=== PATIENT | female | born 1945 | race Caucasian/White ===

== ENCOUNTER 2019-07-23 10:06 | Outpatient (CLI) | payer MEDICARE, SELFPAY ==
--- NOTE | 2019-07-28 13:13 | WPDHOLTEREM ---
Holter/Event Monitor Holter/Event Monitor Date of procedure: 07/23/19 Procedure Type: 48 hour holter monitor Indications: Palpitations Conclusion: 1. 48 hour holter monitor on 07/23/19. 2. Predominant rhythm is sinus rhythm. HR range 41- 118 bpm; average HR 62 bpm. 3. There are 694 premature supraventricular complexes and 27 supraventricular couplets and 3 supraventricular bigeminy. There are 9 episodes of atrial tachycardia, fastest at 150 bpm and longest lasting 8 beats. 4. There are 2 premature ventricular complexes. No ventricular tachycardia. 5. No sinoatrial or atrioventricular blocks. No significant pauses greater than 2 seconds. 6. Patient reports symptoms of chest discomfort and palpitations which demonstrate sinus rhythm HR range 52-83 bpm.
== END 2019-07-23 10:07 | disposition home or self-care (01) ==
PROVIDERS: PCP Family Medicine; Visit Provider Internal Medicine Cardiovascular Disease
DX: R00.2 Palpitations (principal)
CPT/HCPCS: 93225; 93226

== ENCOUNTER 2019-10-30 09:01 | Outpatient (RCR) | payer MEDICARE, SELFPAY ==
--- NOTE | 2019-10-30 09:50 | PTOPEVAL ---
Thank you for referring Klarissa Catalan to [facility]. Please review, sign, date and return this plan of care CASTILLO. I agree with and certify that the following plan of care is medically necessary. Referring Physician Date Admitting Provider: Attending Provider: Bin Ryder MD Referring Provider: *PT Outpatient Evaluation Start: 10/30/19 09:13 Freq: Status: Active Protocol: Document 10/30/19 09:14 NBA (Rec: 10/30/19 09:42 NBA [id number]) Therapy Assessment Status Assessment Status Assessment Status Evaluation Evaluation Information Problem Diagnosis right shoulder pain Onset 10/29/18 Additional Evaluation Detail Quick DASH=28 Subjective Information Pt. reports that she has had Query Text:As Reported By Patient/ on/off neck and shoulder pain Family for about 1 year. She states that she has had MRI which revealed scoliosis and stenosis. She reports that she recieved a cortisone injection into the shoulder on 10/22/19 which has eased her pain. She reports most pain with reaching overhead and rotating the shoulder increase her pain. She states that initially pain woke her at night, but has been sleeping better since getting her injection. She reports that her goal for therapy is to decrease her right shoulder pain. Prior Level of Function Activity Level (Last 3 Months) Occupation retired Hand Dominance Right Activity of Daily Living Ability Independent Indoor/Home Mobility Independent Community Mobility Independent Stairs Ability Independent Functional Cognition (Planning, Shopping Independent , Taking Medications) Cooking Yes Cleaning Yes Laundry Yes Shopping Yes Driving Yes Pain Assessment Pain Scale Pain Scale Used Numeric (1 - 10) Self Report Pain Assessment Right Shoulder(s) Reported Pain Level 0 Pain Description Aching Pain Frequency Intermittent Lowest Pain Intensity 0 Greatest Pain Intensity 8 Pain Level Goal 0
--- NOTE | 2019-11-06 09:00 | PCPTNOTE ---
patient called and cancelled appt for today. OWEN
--- NOTE | 2019-12-01 12:59 | PTOPEVAL ---
Thank you for referring Klarissa Catalan to [facility].? The patient is scheduled to be seen for therapy? ____x/week for ___ weeks. Please review, sign, date and return this plan of care CASTILLO. I agree with and certify that the following plan of care is medically necessary. Referring Physician Date Admitting Provider: Attending Provider: Bin Rydre MD Referring Provider: *PT Outpatient Evaluation Start: 10/30/19 09:13 Freq: Status: Active Protocol: Document 11/28/19 13:00 NBA (Rec: 12/01/19 12:55 NBA [id number]) Evaluation Information Problem Diagnosis right shoulder pain Onset 10/29/18 Subjective Information Pt. reports that she noted Query Text:As Reported By Patient/ signficant decraese in pain Family until earlier this week. She reports she reached for an object at home and felt a return of pain in the front of the arm. she reports that she is still improved in regards to strength and mobility, and pain is less intense. She reports that given her intial progress with therapy she would like to continue to attempt to improve strength and mobility and reduce pain at the shoulder. Pain Assessment Pain Scale Pain Scale Used Numeric (1 - 10) Self Report Pain Assessment Right Shoulder(s) Reported Pain Level 4 Pain Score Pain Score 4: Self Report Upper Extremity Range of Motion General Upper Extremity Range of Motion Gross Upper Extremity Range of Motion right shoulder flexion 142 Comments degrees right shoulder ER AROM 90 degrees right shoulder IR AROM 75 degrees Upper Extremity Muscle Strength Testing General Upper Extremity Strength Gross Upper Extremity Strength Comments right shoulder flexion 4/5 right shoulder abduction 4/5 right shoulder IR 5/5 right shoulder ER 3/5 Palpation Assessment Palpation Palpation TTP continues to be noted in the bicipetal groove of the right shoulder. PT Clinical Summary Clinical Summary Protocol: PTEVCODE PT Clinical Summary Pt. has demonstrated progress in regards to strength and
== END 2019-12-12 08:48 | disposition home or self-care (01) ==
LOC: CHSPT 09:01
PROVIDERS: Visit Provider Orthopaedic Surgery
DX: M25.511 Pain in right shoulder (principal)
CPT/HCPCS: 97014; 97110; 97140; 97161; G0283

== ENCOUNTER 2019-12-02 10:16 | Outpatient (CLI) | payer MEDICARE, SELFPAY ==
--- NOTE | 2019-12-05 13:17 | SLEEP_ITS ---
Home Sleep Test DATE OF STUDY: 12/02/2019 ORDERING PHYSICIAN: Dr. Edd Hardin. REASON FOR STUDY: Hypertension, nonrestorative sleep, and tachycardia. HISTORY: This patient is a 74-year-old female, 5 feet 3 inches tall, weighing 200 pounds with a body mass index of 35.4. She has a complex cardiac history including paroxysmal supraventricular tachycardia and paroxysmal atrial tachycardia. She has had ablation earlier this year. Following this, she has had ongoing episodes of atrial tachycardia. She has had multiple medication changes. She had an episode of her heart racing on October 13, 2017, and has had multiple investigations since then. She occasionally snores. Rarely loud enough for others to complain about it. She does not awaken from sleep short of breath or with heartburn or belching. She does have difficulty falling asleep and she wakes up during the night and early in the morning on occasion. This has been going on for longer than 2 years. She occasionally has trouble sleeping with a cold. She does not wake up gasping for breath at night or have breathing problems at night reported to her by others. She does not sweat excessively at night. She occasionally notices her heart pounding or beating irregularly at night. She rarely falls asleep during the day, never involuntarily, never while driving, never with physical effort. She does not have loss of muscle tone with strong emotion. She does not have daytime difficulties due to excessive sleepiness and does not feel paralyzed on waking or falling asleep. She rarely has vivid dreamlike scenes upon awakening or falling asleep. She is rarely afraid to go to sleep. She occasionally has nightmares, occasionally remembers her dreams, occasionally has racing thoughts, feelings of sadness, depression, anxiety, and occasionally has muscular tension. She rarely notices parts of her body jerking. She does not kick at night or have crawly achy feelings in her legs. She does not have leg pain at night. She rarely has morning jaw pain. She never grinds her teeth at night. She frequently is bothered by pain during the day. She occasionally is awakened by pain at night. She frequently wakes up feeling stiff in the morning with sore achy muscles and pain in the neck and spine. She is retired. She has feelings of panic, nightmares, bowel disturbances, palpitations, and stomach problems. Bedtime is 10:30 p.m., taking 30 minutes to fall asleep, typically waking 2-3 times at night, staying awake anywhere from 10 minutes to 2 hours. She will go to the bathroom at night, drink water and perhaps watch television. She wakes at 7:30 a.m. Weekend schedule is the same. She does not take naps. A short nap may be refreshing. Most of the time, she feels adequate in the morning. However, she feels better in the afternoon than in the morning. MEDICAL COMORBIDITIES: Hypertension, chronic upper back pain, neck pain, palpitations, paroxysmal supraventricular tachycardia, slow pathway with radiofrequency ablation in May 2019, history of sinus bradycardia, paroxysmal atrial tachycardia, cardiomegaly, hypersomnia. MEDICATIONS: 1. Losartan 50 mg b.i.d. 2. Alprazolam 3 mg tablets extended release p.r.n. 3. Aspirin 81 mg a day. 4. Calcium carbonate 600 mg p.o. daily. 5. Flecainide 50 mg b.i.d. 6. Multivitamin 1 daily. 7. Potassium chloride 10 mEq daily. 8. Pravastatin 20 mg a day. 9. Acetaminophen 650 mg p.r.n. pain. 10. Metoprolol tartrate 25 mg b.i.d. HABITS: Never smoked tobacco. No caffeine or alcohol. DESCRIPTION OF THE STUDY: On the Skillman Sleepiness Scale, her score is 3. This was conducted as an unattended type III portable home sleep test using 4-channel monitoring including respiratory effort channel, snor
== END 2019-12-02 10:17 | disposition home or self-care (01) ==
LOC: ANHCSM 10:16
PROVIDERS: Visit Provider Internal Medicine Cardiovascular Disease
DX: G47.33 Obstructive sleep apnea (adult) (pediatric) (principal)
CPT/HCPCS: 95806

== ENCOUNTER 2020-08-05 04:42 | Observation (INO) | payer MEDICARE, SELFPAY ==
[2020-08-05] VITALS (9 sets, daily range): BP systolic 112–184; BP diastolic 59–89; PULSE 46–64; RESP 12–20; TEMP 36.1–36.8; O2SAT 96–100; BMI 36.3
--- NOTE | 2020-08-05 | ECHO_ITS ---
Patient Info Name: Klarissa Catalan Age: 75 years : 1945 Gender: Female Ht: 63 in Wt: 205 lbs BSA: 2.08 m2 HR: 50 bpm BP: 152 / 71 mmHg Technical Quality: Fair Exam Date: 08/05/2020 11:14 AM Exam Location: [facility] Patient Status: Outpatient Admit Date: 08/05/2020 Staff Ordering Physician: Edd Hardin DO Pelletizer Operator: Argenis Chua RDCS Attending Provider: Edd Hardin DO Referring Physician: Wilfred QUIGLEY; Exam Type: CA echo dop color flow w con Study Info Indications R07.9 - Chest pain, unspecified Complete two-dimensional, color flow and Doppler transthoracic echocardiogram is performed with contrast to opacify the left ventricle and to improve the deliniation of the left ventricle endocardial borders. Contrast/Agitated Saline Contrast/Ag. Saline: Definity Amount: 3.00 ml Administered By: Sanjana King RN Existing IV Access: Yes IV Access Condition: patent with no signs of infiltration Summary 1. Left ventricular chamber dimension is normal. 2. Definity contrast administered improved wall motion interpretation. 3. Left ventricular systolic function is normal, estimated at 65-70%. 4. The left ventricular diastolic function is normal. 5. E/e' 9 is minimally elevated. 6. Left atrial chamber dimension is moderately enlarged. 7. There is trace aortic valve regurgitation. 8. There is mild tricuspid valve regurgitation. 9. No pulmonary hypertension, estimated pulmonary arterial systolic pressure is 29 mmHg. 10. There is trace pulmonic regurgitation. Left Ventricle E/e' 9 is minimally elevated. Definity contrast administered improved wall motion interpretation. Left ventricular chamber dimension is normal. Left ventricular systolic function is normal, estimated at 65-70%. The left ventricular diastolic function is normal. Right Ventricle Right ventricular chamber dimension is normal. Right ventricular systolic function is normal. Left Atria Left atrial chamber dimension is moderately enlarged. Right Atria Right atrial chamber dimension is normal. Aortic Valve The aortic valve is trileaflet. There is no aortic valve stenosis. There is trace aortic valve regurgitation. Pulmonic Valve There is trace pulmonic regurgitation. Mitral Valve There is no mitral valve stenosis. There is no mitral valve regurgitation. Tricuspid Valve There is mild tricuspid valve regurgitation. No pulmonary hypertension, estimated pulmonary arterial systolic pressure is 29 mmHg. Pericardium/Pleural There is no pericardial effusion. Inferior Vena Cava Normal inferior vena cava with >50% collapse upon inspiration consistent with normal right atrial pressure, 5 mmHg. Aorta The aortic root size at the sinus of Valsalva is normal. Left Ventricular Outflow Tract Name Value Normal LVOT 2D LVOT Diameter 1.89 cm LVOT Doppler LVOT Peak Gradient 4 mmHg LVOT Mean Gradient 2 mmHg LVOT VTI 25.53 cm LVOT VTI/AV VTI Ratio
--- NOTE | ~2020-08-05 | XR_ITS ---
XR chest 1V portable DATE: 08/05/2020 05:34 INDICATION: Midline chest pain TECHNIQUE: Portable AP chest on 08/05/2020 at 0538 hours COMPARISON: 11/02/2017 PA and lateral chest FINDINGS: Borderline heart size. Aortic calcification and mild unfolding. No hilar or mediastinal enl argement is evident. No pulmonary consolidation. No pleural effusion or pneumothorax. Osteopenia. Degenerative spurring and mild scoliosis of the thoracic spine. IMPRESSION: Borderline heart size Aortic atherosclerosis No pulmonary consolidation Reviewed, dictated and finalized at location A.
--- NOTE | ~2020-08-05 | CT_ITS ---
EXAMINATION: CTA chest PE protocol DATE: 08/05/2020 06:01 INDICATION: Chest pain, back pain, elevated d-dimer TECHNIQUE: Computed tomography angiography (CTA) of the chest was performed with 100 mL Omnipaque-350 intravenous contrast timed to evaluate the pulmonary arteries. Coronal maximum intensity projection 3D-reconstructions were created by the technologist. Automated exposure control and iterative reconst ruction technique were employed. Exam dose: 799.56 mGy-cm total exam DLP. COMPARISON: 08/05/2020 portable AP chest 12/04/2017 CT pulmonary scan FINDINGS: There is diagnostic contrast enhancement of the pulmonary arteries and no evidence of pulmo nary embolism. Thoracic aortic and abdominal aortic calcification. No aortic aneurysm or dissection is evident. No hilar or mediastinal mass lesion or lymphadenopathy. Cardiomegaly. No pericardial or pleural effusion. No pulmonary infiltrate or consolidation or pulmonary mass lesion. There is mild atelectasis in the l ower lung zones. Small sliding hiatal hernia. Status post cholecystectomy. Normal morphology of the adrenal glands. Diffuse idiopathic skeletal hyperostosis of the thoracic spine. No suspicious osteolytic or osteoblas tic lesions are noted. IMPRESSION: No evidence of pulmonary embolism Cardiomegaly Small sliding hiatal hernia Status post cholecystectomy Reviewed, dictated and finalized at Location A. Reviewed, dictated and finalized at location A.
--- NOTE | 2020-08-05 05:00 | ECG_ITS ---
Measurements Intervals [place] Rate: 72 P: 79 [place]: 207 QRS: 12 QRSD: 93 T: 31 QT: 409 QTc: 450 Interpretive Statements SINUS RHYTHM ATRIAL PREMATURE COMPLEX DELAYED PRECORDIAL R/S TRANSITION LOW QRS VOLTAGE IN PRECORDIAL LEADS BORDERLINE ST-T WAVE ABNORMALITY- ANTERIOR LEADS BASELINE ARTIFACT- I, II, III, AVR, AVL, AVF, V1-V6 BORDERLINE ECG Electronically Signed On 08-05-2020 7:25:26 CDT by Edd Hardin D.O.
--- NOTE | 2020-08-05 05:03 | ED.CHESTPAIN ---
HPI - Chest Pain General Chief Complaint: Chest Pain Stated Complaint: chest pain and back, heart palpitations, weakness Time Seen by Provider: 08/05/20 04:49 Source: patient Mode of arrival: ambulatory Limitations: no limitations History of Present Illness HPI narrative: This is a 75 year old female with history of paroxsymal SVT, hypertension, and anxiety who presents from home for evaluation of palpitations, chest pain and back pain. Patient developed palpitations, chest pain and back pain intermittently on Sunday. She reports feeling frequent palpitations and fluttering in her chest. This has been associated with midsternal chest pressure that radiates to her back. She reports this pain with palpitations last for hours. This episode woke her up at 2 am this morning. Her astronomy teacher, Dr. Hardin, started her on metoprolol on Sunday. She has continued to have worsening symptoms. She states she does not feel well and she feels weak. She has nausea but denies vomiting, sob or fever. MD complaint: chest pain Timing of current episode: episodic and still present Pain radiation: back Related Data Home Medications Medication Instructions Recorded Confirmed aspirin 81 mg tablet,delayed 81 mg PO DAILY 07/29/19 08/05/20 release calcium carbonate 600 mg calcium 600 mg PO DAILY 07/29/19 08/05/20 (1,500 mg) tablet multivitamin 1 cap PO DAILY 07/29/19 08/05/20 potassium chloride 10 mEq 10 meq PO DAILY 07/29/19 08/05/20 capsule,extended release acetaminophen 650 mg 650 mg PO Q12H 08/06/19 08/05/20 tablet,extended release flecainide 50 mg PO DAILY 08/05/20 08/05/20 flecainide 100 mg PO HS 08/05/20 08/05/20 losartan 100 mg PO DAILY 08/05/20 08/05/20 pravastatin 20 mg PO HS 08/05/20 08/05/20 Allergies Allergy/AdvReac Type Severity Reaction Status Date / Time escitalopram [Lexapro] Allergy Intermediate Diarrhea Verified 08/05/20 09:06 Penicillins Allergy Intermediate Rash Verified 08/05/20 09:06 atorvastatin AdvReac Intermediate Muscle Pain Verified 08/05/20 09:06 metoprolol AdvReac Intermediate heart Verified 08/05/20 09:06 palpitations Review of Systems Review of Systems: All systems reviewed & are unremarkable except as noted in HPI and below Constitutional: Constitutional: Denies chills, Reports fatigue and Denies fever(s) Cardiovascular: Cardiovascular: Reports chest pain Comments: palpitations Respiratory: Respiratory: Reports cough and Denies dyspnea Gastrointestinal: Gastrointestinal: Denies abdominal pain, Denies diarrhea, Reports nausea and Denies vomiting Musculoskeletal: Musculoskeletal: Reports back pain [facility] Past Medical History Medical History (Updated 08/05/20 @ 06:39 by Miranda Mock MD) Dyslipidemia KELLI (generalized anxiety disorder) Hypersomnia Hypertension Overweight 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
[2020-08-05] MEDS: NITROGLYCERIN OINTMENT 1 INCH DOSE TRANSDERM (05:07)
[2020-08-05] MEDS: ONDANSETRON INJ 4 MG/2 ML VIAL IV PUSH (05:09)
[2020-08-05] MEDS: ASPIRIN 81 MG CHEWABLE TABLET 324 MG PO (05:09)
[2020-08-05 05:16] LABS: Basophils Absolute Auto 0.1 K/mm3 (0.0-0.1); Basophils Percent Auto 1.1 % (0.2-1.2); Eosinophils Absolute Auto 0.1 K/mm3 (0-0.3); Eosinophils Percent Auto 2.2 % (0-4.4); Hematocrit 44.2 % (37.0-47.0); Hemoglobin 14.6 g/dL (12.0-15.0); Immature Granulocyte Absolute 0.02 K/mm3 (0.00-0.031); Immature Granulocyte Percent A 0.4 % (0-0.5); Lymphocytes Absolute Auto 2.11 K/mm3 (0.9-3.2); Lymphocytes Percent Auto 38.4 % (18.3-44.2); Mean Corpuscular Hemoglobin 31.9 pg (26-34); Mean Corpuscular Volume 96.7 fl (80-100); Monocytes Absolute Auto 0.5 K/mm3 (0.1-0.6); Monocytes Percent Auto 8.4 % (2.6-8.5); Neutrophils Absolute Auto 2.7 K/mm3 (1.3-6.7); Neutrophils Percent Auto 49.5 % (45.5-73.1); Platelet Count Result 219 k/mm3 (150-375); Red Blood Count 4.57 M/mm3 (4.2-5.4); White Blood Count 5.5 K/mm3 (4.5-10.0)
[2020-08-05 05:24] LABS: Anion Gap 4 mmol/L (8-16); Blood Urea Nitrogen 16 mg/dL (7-17); Carbon Dioxide 29 mmol/L (22-30); Chloride 103 mmol/L (98-107); Estimated CRCL calculation 59 ml/min; Estimated Glomerular Filt Rate > 60; Glucose 95 mg/dL (65-105); Sodium 136 mmol/L (137-145)
[2020-08-05 05:27] LABS: INR 0.9; Prothrombin Time 12.3 Seconds (11.1-14.7)
[2020-08-05 05:28] LABS: Partial Thromboplastin Time 28.2 SECONDS (22.3-36.8)
[2020-08-05 05:30] LABS: D Dimer 0.83 ug/mL (<0.48)
[2020-08-05 05:36] LABS: Troponin I 0.028 ng/mL (0.000-0.034)
--- NOTE | 2020-08-05 07:17 | PC.NURSE ---
Resting on cart HOB elevated, non-labored respirations, reports CP 3/10 s/p nitro paste. States I have been feeling more weak lately and not been sleeping well d/t the pain . Updated on POC
--- NOTE | 2020-08-05 07:40 | ADMGEN ---
This patient, Klarissa Catalan, was admitted VIA WC to [facility]. , ED, AT SIDE. Patient/family oriented to hospital policies and general routines including ID bracelet, bed and alarms, visiting hours, pain management, procedures, bathroom and other care routines, personal items, smoking policy, room service/diet, and visiting hours. Information on how to activate the Rapid Response Team has been discussed. Patient/Family are encouraged to report perceived risks to care and to ask questions if they do not understand what they are told or what they should do.
--- NOTE | 2020-08-05 08:00 | ECG_ITS ---
Measurements Intervals [place] Rate: 47 P: 79 SD: 196 QRS: 27 QRSD: 84 T: 43 QT: 480 QTc: 425 Interpretive Statements SINUS BRADYCARDIA LOW QRS VOLTAGE IN PRECORDIAL LEADS ABNORMAL ECG Electronically Signed On 08-05-2020 11:51:29 CDT by Edd Hardin D.O.
--- NOTE | 2020-08-05 08:55 | PC.NURSE ---
DR. OTTO HERE TO SEE PT AT BEDSIDE.
[2020-08-05 09:49] LABS: Troponin I < 0.012 ng/mL (0.000-0.034)
--- NOTE | 2020-08-05 09:59 | PM.IMHP ---
H&P: HPI History of Present Illness Date/Time: 08/05/20 09:59 Reason for admit: Chest pain. 74 yr old woman who is my regular cardiology patient presents to ER last night for chest pain. She has a history of PSVT/PAT (was on Sotalol but due to frequent breakthroughs she was changed to Flecainide in [place]), hypertension, dyslipidemia, ERICK on APAP. States last night chest pressure radiating to her back woke her up so she came to ER for evaluation. She also states she feels palpitations when her HR goes above 50 bpm but in ED on monitor she did not have any ectopies during that time. She used to have heartburn but had her Omemprazole discontinued. She can walk without any chest pain. She is limited by chronic upper back pain and neck pain and was supposed to see a specialist other than pain management for it last year but the pandemic prevented that from happening. Reports she has palpitations off and on with extra beats only. Denies orthopnea, PND, edema, dizziness. Reports feeling tired during the day and does not sleep well. 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 07/23/19 Holter: Sinus rhythm, HR range 41-118 bpm; average 62 bpm; 9 episodes of atrial tachycardia, fastest at 150 bpm and longest 8 beats; 2 PVC's. 06/06/19 EP lab at [facility] in [place]: Slow pathway PSVT RF ablation. EVR (30 day event monitor: Sinus rhythm, HR range 37-148 bpm; average 59 bpm; 2% PAC's with 3 SVT, fastest at 148 bpm and longest lasting 12 beats; 1% PVC's, 1 VT at 179 bpm lasting 4 beats.) - 08/26/2018 EKG (Sinus rhythm at 54 bpm, PAC, QTc 481 ms.) - 12/28/2017 EKG (Sinus bradycardia at 46 bpm, QTc 451 ms.) - 12/13/2017 EKG (Sotalol loading: Sinus rhythm, borderline T wave in anterior leads, low voltage.) - 12/03/2017 EKG (Sinus bradycardia, HR 52 bpm.) - 11/30/2017 Holter (Sinus rhythm, HR range 42-115 bpm. 7,168 PAC's and several runs of atrial tachycardia at 150 bpm, longest lasting 10 beats; 765 PVC and 11 couplets.) - 10/23/2017 EKG (Sinus rhythm, PAC's.) - 10/13/2017 STRESS TESTS: 11/29/19 Home sleep study: At least mild ERICK with 83% obstructive, desaturation to 77%; recommend APAP. MPI ([facility], [place]: Inducible ischemia of apex, anteroapex, apical lateral and mid anteroseptal and inferolateral johns; TID increased.) - 04/29/2016 Echo (Negative for ischemia.) - 11/09/2017 CT/MRI: Chest CT (CTA chest: negative for pulm embolism. Cardiomegaly. Small sliding hiatal hernia, diffuse idiopathic skeletal hyperostosis (DISH) of the spine.) - 12/04/2017 Chief Complaint: Chest pain Review of Systems Review of Systems: All systems reviewed & are unremarkable except as noted in HPI and below Constitutional: Constitutional: Reports as per HPI, Denies chills and Denies fever(s) Cardiovascular: Cardiovascular: Reports as per HPI, Reports chest pain, Reports irregular heart rhythm, Denies leg edema and Denies lightheadedness Respiratory: Respiratory: Reports as per HPI and Denies dyspnea Gastrointestinal: Gastrointestinal: Reports as per HPI, Denies abdominal pain and Reports heartburn Genitourinary: Genitourinary: Reports as per HPI and Denies urinary frequency Musculoskeletal: Musculoskeletal: Reports as per HPI, Reports back pain and Reports arthralgias Neurologic: Reports as per HPI, Denies dizziness and Denies syncope [facility] Past Medical History Medical History (Updated 08/05/20 @ 06:39 by Miranda Mock MD) Dyslipidemia KELLI (generalized anxiety disorder) Hypersomnia Hypertension Overweight 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
[2020-08-05] MEDS: FLECAINIDE ACETATE 50 MG TABLET PO (10:30)
[2020-08-05] MEDS: METOPROLOL SUCCINATE EXT REL 12.5 MG TABCR PO (10:30)
[2020-08-05] MEDS: LOSARTAN POTASSIUM 100 MG TABLET PO (10:30)
[2020-08-05] MEDS: POTASSIUM CHLORIDE 10 MEQ TABLET.ER PO (10:31)
[2020-08-05] MEDS: PANTOPRAZOLE 40 MG TABLET PO (10:31)
[2020-08-05] MEDS: MULTIVITAMINS THERAPEUTIC TAB (*BKC) 1 TABLET PO (10:31)
--- NOTE | 2020-08-05 10:39 | PC.NURSE ---
ECHO IN PROGRESS AT BEDSIDE.
--- NOTE | 2020-08-05 11:00 | ECG_ITS ---
Measurements Intervals [place] Rate: 51 P: 71 [place]: 198 QRS: 23 QRSD: 86 T: 48 QT: 492 QTc: 454 Interpretive Statements SINUS BRADYCARDIA ATRIAL PREMATURE COMPLEX BASELINE WANDER- AVR, AVL, AVF BORDERLINE ECG Electronically Signed On 08-05-2020 14:36:30 CDT by Edd Hardin D.O.
[2020-08-05] MEDS: PERFLUTREN LIPID MICROSPHERES 1.5 ML VIAL DILUTED TO 10 ML TOTAL VOLUME IV PUSH (11:16)
[2020-08-05 13:01] LABS: Troponin I < 0.012 ng/mL (0.000-0.034)
--- NOTE | 2020-08-05 15:55 | PC.NURSE ---
REVIEWED DISCHARGE INSTRUCTIONS W/ PT. QUESTIONS ANSWERED. VOICED UNDERSTANDING OF ALL. COPY GIVEN. DISCHARGED HOME, OUT VIA WC TO 'S WAITING CAR WITH ALL PERSONAL BELONGINGS AND DISCHARGE PACKET. VOICES NO C/O. NO DISTRESS NOTED.
== END 2020-08-05 15:55 | disposition home or self-care (01) ==
LOC: ANHED 06:39 → ANHCPC 06:58
PROVIDERS: Admitting Provider Internal Medicine Cardiovascular Disease; Emergency Provider General Practice; PCP Nurse Practitioner Family; Visit Provider Internal Medicine Cardiovascular Disease
DX: R07.9 Chest pain, unspecified (principal); R00.2 Palpitations; R53.1 Weakness; M54.6 Pain in thoracic spine; G89.29 Other chronic pain; M54.2 Cervicalgia; I47.1 Supraventricular tachycardia; E78.5 Hyperlipidemia, unspecified; I10 Essential (primary) hypertension; G47.33 Obstructive sleep apnea (adult) (pediatric); F41.1 Generalized anxiety disorder; H30.04 Focal chorioretinal inflammation, macular or paramacular; Z79.82 Long term (current) use of aspirin
CPT/HCPCS: 36415; 71045; 71275; 80048; 84484; 85025; 85380; 85610; 85730; 93005; 96374; 96375; 99285; A9270; C8929; G0378; J2405; Q9957; Q9967

== ENCOUNTER 2020-09-21 08:17 | Outpatient (CLI) | payer MEDICARE, SELFPAY ==
--- NOTE | ~2020-09-21 | MM_ITS ---
EXAMINATION: MM screening [facility] BI w genesis HISTORY: Screening mammogram TECHNIQUE: Craniocaudal and mediolateral oblique 3-D tomosynthesis images were obtained and synthetic 2-D images were generated. CAD analysis was submitted and interpreted. COMPARISON: 08/05/2018 bilateral digital screening mammogram examinations BREAST PARENCHYMAL COMPOSITION: There are scattered areas of fibroglandular density. FINDINGS: There is no evidence of suspicious mass, calcification, or architectural distortion to sugg est malignancy in either breast. There has been no suspicious interval change. IMPRESSION: 1. No mammographic evidence of malignancy. 2. Recommend routine screening mammography in one year. BI-RADS Category 1: Negative Reviewed, dictated and finalized at location A.
== END 2020-09-21 08:18 | disposition home or self-care (01) ==
LOC: CHSIMG 08:19
PROVIDERS: PCP Family Medicine; Visit Provider Family Medicine
DX: Z12.31 Encounter for screening mammogram for malignant neoplasm of breast (principal)
CPT/HCPCS: 77063; 77067

== ENCOUNTER 2020-11-15 14:42 | Outpatient (NON) | payer MEDICARE, SELFPAY | END 2020-11-15 14:43 | disposition home or self-care (01) | LOC: CHSLAB 14:43 | PROVIDERS: PCP Family Medicine; Visit Provider Family Medicine | DX: C44.319 Basal cell carcinoma of skin of other parts of face (principal) | CPT/HCPCS: 88305 ==

== ENCOUNTER 2020-12-27 17:10 | Emergency (ER) | payer MEDICARE, SELFPAY ==
--- NOTE | ~2020-12-27 | XR_ITS ---
XR chest 2V DATE: 12/27/2020 17:52 INDICATION: Chest burning, shortness of breath, dizziness, nausea. Atrial fibrillation. TECHNIQUE: PA and lateral views COMPARISON: 08/05/2020 CT pulmonary scan 08/05/2020 portable AP chest FINDINGS: Cardiomegaly. There is aortic ectasia and mild unfolding. No hilar or mediastinal enlargeme nt. No pulmonary infiltrate or consolidation, pleural effusion or pulmonary vascular congestion or pneumo thorax. There is dextroscoliosis and degenerative spurring of the thoracic spine. Diffuse osteopenia. Surgical clips, right upper quadrant, consistent with cholecystectomy. IMPRESSION: Cardiomegaly No active pulmonary disease Reviewed, dictated and finalized at location A.
--- NOTE | 2020-12-27 17:12 | ECG_ITS ---
Measurements Intervals [place] Rate: 101 P: [place]: 0 QRS: 13 QRSD: 92 T: 33 QT: 352 QTc: 457 Interpretive Statements ATRIAL FIBRILLATION WITH RAPID VENTRICULAR RESPONSE LOW QRS VOLTAGE IN PRECORDIAL LEADS ABNORMAL ECG Electronically Signed On 12-27-2020 20:18:53 CDT by Edd Hardin D.O.
[2020-12-27 17:24] VITALS: BP 151/70; PULSE 108; RESP 17; TEMP 36.1; O2SAT 99
[2020-12-27 17:51] LABS: Basophils Absolute Auto 0.1 K/mm3 (0.0-0.1); Basophils Percent Auto 0.7 % (0.2-1.2); Eosinophils Absolute Auto 0.1 K/mm3 (0-0.3); Eosinophils Percent Auto 0.8 % (0-4.4); Hematocrit 44.8 % (37.0-47.0); Immature Granulocyte Absolute 0.01 K/mm3 (0.00-0.031); Immature Granulocyte Percent A 0.1 % (0-0.5); Lymphocytes Absolute Auto 1.87 K/mm3 (0.9-3.2); Mean Corpuscular HGB Conc 33.5 g/dl (32-36); Mean Corpuscular Hemoglobin 32.1 pg (26-34); Mean Corpuscular Volume 95.9 fl (80-100); Mean Platelet Volume 9.5 fl (7.4-10.4); Monocytes Absolute Auto 0.6 K/mm3 (0.1-0.6); Monocytes Percent Auto 7.4 % (2.6-8.5); Neutrophils Absolute Auto 4.9 K/mm3 (1.3-6.7); Platelet Count Result 218 k/mm3 (150-375); Red Blood Count 4.67 M/mm3 (4.2-5.4); Red Cell Distribution Width 13.2 % (11.5-14.5); White Blood Count 7.5 K/mm3 (4.5-10.0)
[2020-12-27 18:01] LABS: INR 0.9; Partial Thromboplastin Time 31.5 SECONDS (22.3-36.8); Prothrombin Time 12.5 Seconds (11.1-14.7)
[2020-12-27 18:08] LABS: Anion Gap 10 mmol/L (8-16); Blood Urea Nitrogen 14 mg/dL (7-17); Calcium 10.2 mg/dL (8.4-10.2); Carbon Dioxide 24 mmol/L (22-30); Chloride 103 mmol/L (98-107); Estimated CRCL calculation 52 ml/min; Estimated Glomerular Filt Rate > 60; Glucose 104 mg/dL (65-110); Potassium 3.8 mmol/L (3.4-5.0); Sodium 137 mmol/L (137-145)
[2020-12-27 18:19] LABS: Troponin I < 0.012 ng/mL (0.000-0.034)
--- NOTE | 2020-12-27 19:09 | ED.ARRPALP ---
HPI - Arrhythmia/Palpitations General Chief Complaint: Arrhythmia/Palpitations Stated Complaint: afib Time Seen by Provider: 12/27/20 18:00 Source: patient Mode of arrival: ambulatory Limitations: no limitations History of Present Illness HPI narrative: 75-year-old with a history of A. fib on Eliquis here with complaints of palpitations. Patient states that she was recently diagnosed with atrial fibrillation and she was started on Eliquis and flecainide she states that her heart rate went up to 110 and she was concerned. She denied any chest pain or chest discomfort. No history of shortness of breath. She states that she has been taking her medication. complaint: irregular heart beat Onset (ago): hour(s) (1) Duration: now resolved Severity: moderate Context: occurred during rest Associated symptoms: denies other symptoms Related Data Home Medications Medication Instructions Recorded Confirmed calcium carbonate 600 mg calcium 600 mg PO DAILY 07/29/19 08/17/20 (1,500 mg) tablet multivitamin 1 cap PO DAILY 07/29/19 08/17/20 acetaminophen 650 mg 650 mg PO Q12H 08/06/19 08/17/20 tablet,extended release losartan 100 mg PO DAILY 08/05/20 08/17/20 Allergies Allergy/AdvReac Type Severity Reaction Status Date / Time escitalopram [Lexapro] Allergy Intermediate Diarrhea Verified 12/24/20 09:59 Penicillins Allergy Intermediate Rash Verified 12/24/20 09:59 atorvastatin AdvReac Intermediate Muscle Pain Verified 12/24/20 09:59 metoprolol AdvReac Intermediate heart Verified 12/24/20 09:59 palpitations Review of Systems Review of Systems: All systems reviewed & are unremarkable except as noted in HPI and below Constitutional: Constitutional: Reports no additional constitutional complaints Eyes: Eyes: Reports no additional eye complaints ENT: Reports system reviewed and no additional complaints, except as documented Cardiovascular: Cardiovascular: Reports as per HPI Respiratory: Respiratory: Reports no additional respiratory complaints Gastrointestinal: Gastrointestinal: Reports no additional gastrointestinal complaints Musculoskeletal: Musculoskeletal: Reports no additional musculoskeletal complaints Integumentary/Breasts: Skin/Breast: Reports system reviewed and no additional complaints, except as docu Neurologic: Reports system reviewed and no additional complaints, except as documented Psychiatric: Psychiatric: Reports no additional psychiatric complaints [facility] Past Medical History Medical History (Updated 12/27/20 @ 19:11 by Bryan Lerma MD) Dyslipidemia KELLI (generalized anxiety disorder) Hypersomnia Hypertension Overweight 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 HEAD: Normocephalic, atraumatic. EYES: PERRLA and EOMI. ENT: Nares clear, no rhinorrhea or epistaxis. Mucous membranes moist. NECK: Supple. CHEST: Clear to auscultation. No respiratory distress. HEART: Irregularly irregular. ABDOMEN: Soft, nontender, nondistended, normal activ
[2020-12-27 19:23] VITALS: BP 151/92; PULSE 92; RESP 22; O2SAT 96
[2020-12-27 19:53] VITALS: BP 154/89; PULSE 101; RESP 16; O2SAT 97
== END 2020-12-27 19:54 | disposition home or self-care (01) ==
PROVIDERS: Emergency Medicine; Emergency Provider Family Medicine; PCP Family Medicine
DX: I48.11 Longstanding persistent atrial fibrillation (principal); E78.5 Hyperlipidemia, unspecified; I10 Essential (primary) hypertension; E66.3 Overweight; Z68.35 Body mass index [BMI] 35.0-35.9, adult; Z79.01 Long term (current) use of anticoagulants; Z96.653 Presence of artificial knee joint, bilateral
CPT/HCPCS: 36415; 71046; 80048; 84484; 85025; 85610; 85730; 93005; 99284; A9270

== ENCOUNTER 2021-01-11 01:54 | Day surgery (SDC) | payer MEDICARE, SELFPAY ==
[2021-01-10 14:50] VITALS: BMI 34.9
--- NOTE | 2021-01-11 07:00 | ECG_ITS ---
Measurements Intervals [place] Rate: 54 P: 55 [place]: 235 QRS: 16 QRSD: 96 T: 69 QT: 466 QTc: 442 Interpretive Statements SINUS BRADYCARDIA WITH SINUS ARRHYTHMIA WITH FIRST DEGREE AV BLOCK DELAYED PRECORDIAL R/S TRANSITION LOW QRS VOLTAGE IN PRECORDIAL LEADS BORDERLINE ST-T WAVE ABNORMALITY- ANT/HIGH LAT LEADS ABNORMAL ECG Electronically Signed On 01-11-2021 12:11:15 CDT by Edd Hardin D.O.
--- NOTE | 2021-01-11 07:53 | WPDANESEPPF ---
Anes - Initial Pre Proc Eval Procedure: Operation Date: 01/11/21 08:30 Proposed Procedures p Trans Esophageal Echo HEAVEN - Edd Hardin DO s Electrical Cardioversion - Edd Hardin DO Date/Time: 01/11/21 07:53 Surgeon: Edd Hardin DO Pre Op Diagnosis: proxmial a-fib Patient Data Age: 75 Gender: F Height: 1.6 m Weight: 89.4 kg Allergies Allergy/AdvReac Type Severity Reaction Status Date / Time escitalopram [Lexapro] Allergy Intermediate Diarrhea Verified 01/10/21 14:56 Penicillins Allergy Intermediate Rash Verified 01/10/21 14:56 atorvastatin AdvReac Intermediate Muscle Pain Verified 01/10/21 14:56 Home Medications Medication Instructions Recorded Confirmed Type multivitamin 1 cap PO DAILY 07/29/19 01/10/21 History acetaminophen 650 mg 650 mg PO Q12H 08/06/19 01/10/21 History tablet,extended release losartan 100 mg PO DAILY 08/05/20 01/10/21 History apixaban 5 mg tablet 5 mg PO BID #60 tablet 12/24/20 01/10/21 Rx metoprolol succinate 25 mg 25 mg PO BID #30 tablet 12/31/20 01/10/21 Rx tablet,extended release 24 hr alprazolam 0.25 mg tablet 0.25 mg PO BID PRN #60 tablet 01/05/21 01/10/21 Rx calcium carbonate 600 mg calcium 600 mg PO DAILY 01/05/21 01/10/21 History (1,500 mg) tablet pravastatin 20 mg tablet 20 mg PO HS #90 tablet 01/05/21 01/10/21 Rx flecainide 100 mg PO BID 01/10/21 01/10/21 History Laboratory Tests 01/11/21 07:44 Sodium Pending Potassium Pending Chloride Pending Carbon Dioxide Pending Anion Gap Pending BUN Pending Creatinine Pending Estim Creat Clear Calc Pending Estimated GFR Pending Glucose Pending Calcium Pending Magnesium Pending Patient hx anesthesia problems: none Family hx anesthesia problems: none Results Review: All pre-operative results and documents have been reviewed as part of the pre-operative evaluation. 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 Gender identity (if verbalized by the patient): Female Sexual Orientation (if Verbalized by the Patient): Straight or Heterosexual Spiritual care concerns: No Anes - Eval Final PreProcedure Day of Procedure 01/11/21 07:53 Patient weight: obese Heart: irregular rhythm Lungs: clear to auscultation Airway: Mallampati scale class II Neurological: alert and oriented Last oral intake: >/= 8 hours ASA classification: III Emergent: no Anesthetic plan: proceed Anesthesia type and monitoring: general GIVS and standard monitoring Results Review: All pre-operative results and documents have been reviewed as part of the pre-operative evaluation. Informed Consent: The patient's anesthetic plan and its attendant risks and benefits were discussed with the patient/family/POA. Questions were solicited and answers provided to the satisfaction of the patient/family/POA.
[2021-01-11 08:02] LABS: Anion Gap 8 mmol/L (8-16); Blood Urea Nitrogen 11 mg/dL (7-17); Calcium 9.5 mg/dL (8.4-10.2); Carbon Dioxide 27 mmol/L (22-30); Chloride 103 mmol/L (98-107); Estimated CRCL calculation 52 ml/min; Estimated Glomerular Filt Rate > 60; Glucose 106 mg/dL (65-110); Magnesium 1.7 mg/dL (1.6-2.3); Potassium 3.7 mmol/L (3.4-5.0); Sodium 138 mmol/L (137-145)
[2021-01-11 08:03] VITALS: BP 157/114; PULSE 97; RESP 14; TEMP 36.3; O2SAT 98
--- NOTE | 2021-01-11 08:04 | ECHO_ITS ---
Patient Info Name: Klarissa Catalan Age: 75 years : 1945 Gender: Female Ht: 63 in Wt: 197 lbs BSA: 2.03 m2 HR: 104 bpm Exam Date: 01/11/2021 8:20 AM Exam Location: [facility] Patient Status: Outpatient Admit Date: 01/11/2021 Staff Ordering Physician: Edd Hardin DO Monorail Hooker: Argenis Chua RDCS Attending Provider: Edd Hardin DO Referring Physician: Wilfred QUIGLEY; Exam Type: CA echo transesophageal Study Info Indications I48.0 - Paroxysmal atrial fibrillation Complete two-dimensional, color flow and Doppler transesophageal study is performed. Procedure Details Risks/benefits/alternative treatment was discussed with patient and she is agreeable to procedure. Vitals stable. Patient was anesthetized as per anesthesiology. Cetacaine spray x 2 to posterior oropharynx. HEAVEN probe advanced into esophagus without incident. Multiple images obtained at different levels. HEAVEN probe withdrawn and no blood noted on HEAVEN probe tip. Patient tolerated procedure well and no complications. Summary 1. Left ventricular chamber dimension is normal. 2. Left ventricular systolic function is normal with an ejection fraction of 55-60%. 3. Left atrial chamber dimension is moderately enlarged. 4. There is trace aortic valve regurgitation. 5. There is mild mitral valve regurgitation. Left Ventricle Left ventricular systolic function is normal with an ejection fraction of 55-60%. Left ventricular chamber dimension is normal. The left ventricular diastolic function is indeterminate. Right Ventricle Right ventricular chamber dimension is normal. Right ventricular systolic function is normal. Left Atria Left atrial chamber dimension is moderately enlarged. Right Atria Right atrial chamber dimension is normal. Atrial Septum Intact interatrial septum visualized by 2D and color flow imaging. Atrial Appendage There is no thrombus visualized in the left atrial appendage. Aortic Valve The aortic valve is trileaflet. There is no aortic valve stenosis. There is trace aortic valve regurgitation. Pulmonic Valve There is no pulmonic regurgitation. Mitral Valve There is no mitral valve stenosis. There is mild mitral valve regurgitation. Tricuspid Valve There is no tricuspid valve regurgitation. Pericardium/Pleural There is no pericardial effusion. Inferior Vena Cava IVC is not well visualized.. Aorta The aortic root size at the sinus of Valsalva is normal. Report Signatures
--- NOTE | 2021-01-11 08:58 | ECG_ITS ---
Measurements Intervals [place] Rate: 101 P: [place]: 0 QRS: 50 QRSD: 105 T: 31 QT: 379 QTc: 492 Interpretive Statements ATRIAL FIBRILLATION WITH RAPID VENTRICULAR RESPONSE LOW QRS VOLTAGE IN PRECORDIAL LEADS BORDERLINE R WAVE PROGRESSION, ANTERIOR LEADS BORDERLINE T WAVE ABNORMALITY- ANTERIOR LEADS ABNORMAL ECG Electronically Signed On 01-11-2021 14:52:18 CDT by Edd Hardin D.O.
--- NOTE | 2021-01-11 09:09 | WPDTECDV ---
HEAVEN with Cardioversion Date of procedure: 01/11/21 Procedure Type: HEAVEN with cardioversion Indications: Symptomatic Atrial fibrillation Description of Procedure: Patient was given cetacaine spray x 2 to posterior oropharynx. Defibrillator pads placed to anterior and posterior chest. Patient anesthetized as per anesthesia. HEAVEN performed which showed no left atrial or left atrial appendage thrombus. Cardioversion with 200 J biphasic synchronized energy x1 was successful. Patient tolerated procedure well, no complications. Sedation: General anesthesia as per Anesthesia Conclusion: 1. Successful DC cardioversion from atrial fibrillation to Sinus bradycardia at 55 bpm.
[2021-01-11 09:15] VITALS: BP 106/61; PULSE 50; RESP 10; O2SAT 97
[2021-01-11 09:40] VITALS: BP 116/63; PULSE 56; RESP 15; O2SAT 97
[2021-01-11 10:00] VITALS: BP 104/67; PULSE 56; RESP 15; O2SAT 97
[2021-01-11 10:14] VITALS: BP 117/64; PULSE 56; RESP 15; O2SAT 97
== END 2021-01-11 10:20 | disposition home or self-care (01) ==
PROVIDERS: PCP Family Medicine; Visit Provider Internal Medicine Cardiovascular Disease
PROC: (CPT 93312; principal; 2021-01-11 08:30)
PROC: 5A2204Z Restoration of Cardiac Rhythm, Single (ICD-10-PCS; 2021-01-11 08:30)
DX: I48.0 Paroxysmal atrial fibrillation (principal); I34.0 Nonrheumatic mitral (valve) insufficiency; I10 Essential (primary) hypertension; E78.5 Hyperlipidemia, unspecified; G47.33 Obstructive sleep apnea (adult) (pediatric); F41.1 Generalized anxiety disorder; Z79.01 Long term (current) use of anticoagulants
CPT/HCPCS: 36415; 80048; 83735; 92960; 93005; 93312; 93320; 93325; J2704; J7030

== ENCOUNTER 2021-08-05 07:51 | Outpatient (CLI) | payer MEDICARE, SELFPAY ==
[2021-08-05 08:39] LABS: Cholesterol 197 mg/dL (0-200); HDL Direct 107 mg/dL (40-60); LDL Cholesterol Calculated 79 mg/dL (<130); Triglycerides 55 mg/dL (0-150)
== END 2021-08-05 07:52 | disposition home or self-care (01) ==
LOC: CHSLAB 07:53
PROVIDERS: PCP Family Medicine; Visit Provider Internal Medicine Cardiovascular Disease
DX: E78.5 Hyperlipidemia, unspecified (principal)
CPT/HCPCS: 36415; 80061

== ENCOUNTER 2021-09-26 11:58 | Outpatient (CLI) | payer MEDICARE, SELFPAY ==
--- NOTE | ~2021-09-26 | MM_ITS ---
EXAMINATION: MM screening [facility] BI w genesis HISTORY: Screening TECHNIQUE: Craniocaudal and mediolateral oblique 3-D tomosynthesis images were obtained and synthetic 2-D images were generated. CAD analysis was submitted and interpreted. COMPARISON: Comparison to multiple prior studies sequentially, with oldest reviewed study dated 08/05. BREAST PARENCHYMAL COMPOSITION: There are scattered areas of fibroglandular density. FINDINGS: There is no evidence of suspicious mass, calcification, or architectural distortion to sugg est malignancy in either breast. There has been no suspicious interval change. IMPRESSION: 1. No mammographic evidence of malignancy. 2. Recommend routine screening mammography in one year. BI-RADS Category 1: Negative Reviewed, dictated and finalized at location A.
== END 2021-09-26 11:59 | disposition home or self-care (01) ==
LOC: CHSIMG 12:00
PROVIDERS: PCP Family Medicine; Visit Provider Family Medicine
DX: Z12.31 Encounter for screening mammogram for malignant neoplasm of breast (principal)
CPT/HCPCS: 77063; 77067

== ENCOUNTER 2021-09-29 09:57 | Outpatient (CLI) | payer MEDICARE, SELFPAY ==
[2021-09-29 10:07] LABS: Hematocrit 42.3 % (35.0-42.0); Mean Corpuscular HGB Conc 33.1 g/dL (32.0-36.0); Mean Corpuscular Hemoglobin 32.5 pg (27.0-31.0); Mean Corpuscular Volume 98.1 fL (78.0-102.0); Mean Platelet Volume 9.9 fl (9.2-11.8); Platelet Count Result 178 K/mm3 (150-420); Red Blood Count 4.31 M/mm3 (4.20-5.40); Red Cell Distribution Width 12.8 % (11.6-14.4); White Blood Count 5.8 K/mm3 (4.8-10.8)
--- NOTE | 2021-09-29 10:25 | ECG_ITS ---
Measurements Intervals [place] Rate: 49 P: 86 [place]: 217 QRS: 58 QRSD: 96 T: 60 QT: 467 QTc: 422 Interpretive Statements SINUS BRADYCARDIA WITH FIRST DEGREE AV BLOCK LOW QRS VOLTAGE IN PRECORDIAL LEADS [QRS DEFLECTION < 1.0 mV IN CHEST LEADS] MINIMAL ST DEPRESSION [0.025+ mV ST DEPRESSION] NONSPECIFIC ST T-WAVE ABNORMALITY ABNORMAL ECG COMPARED TO ECG 01/11/2021 08:59:38 ST (T WAVE) DEVIATION NOW PRESENT Electronically Signed On 09-29-2021 12:50:18 CDT by Ramesh Albert M.D.
[2021-09-29 10:40] LABS: Alanine Aminotransferase 25 U/L (14-59); Albumin Level 3.6 g/dL (3.4-5.0); Alkaline Phosphatase 69 U/L (46-116); Anion Gap 4 mmol/L (8-16); Aspartate Amino Transferase 18 U/L (15-37); Blood Urea Nitrogen 12 mg/dL (7-18); Calcium 9.5 mg/dL (8.5-10.1); Carbon Dioxide 29 mmol/L (21-32); Chloride 103 mmol/L (98-108); Estimated Glomerular Filt Rate 60; Glucose 94 mg/dL (70-99); Osmolality Calculated 281 mOsm/kg (285-295); Sodium 136 mmol/L (136-145); Thyroid Stimulating Hormone Reflex 0.64 u/IU/mL (0.36-3.74)
== END 2021-09-29 09:58 | disposition home or self-care (01) ==
LOC: CHSLAB 09:59 → CHSCARD 10:20
PROVIDERS: PCP Family Medicine; Visit Provider Family Medicine
DX: E11.9 Type 2 diabetes mellitus without complications (principal); I10 Essential (primary) hypertension
CPT/HCPCS: 36415; 80053; 84443; 85027; 93005

== ENCOUNTER 2022-03-23 08:58 | Outpatient (CLI) | payer MEDICARE, SELFPAY ==
[2022-03-23 09:11] LABS: Basophils Absolute Auto 0.06 K/mm3 (0.00-0.10); Basophils Percent Auto 1.2 % (0.0-1.0); Eosinophils Absolute Auto 0.09 K/mm3 (0.02-0.50); Eosinophils Percent Auto 1.8 % (1.0-6.0); Hematocrit 44.2 % (35.0-42.0); Hemoglobin 14.8 g/dL (11.7-13.8); Immature Granulocyte Absolute 0.01 K/mm3 (0.00-0.00); Immature Granulocyte Percent A 0.2 % (0.0-0.0); Lymphocytes Absolute Auto 2.02 K/mm3 (1.10-4.50); Mean Corpuscular HGB Conc 33.5 g/dL (32.0-36.0); Mean Corpuscular Volume 98.4 fL (78.0-102.0); Mean Platelet Volume 10.1 fl (9.2-11.8); Monocytes Absolute Auto 0.45 K/mm3 (0.10-0.90); Monocytes Percent Auto 9.1 % (2.0-11.0); Neutrophils Absolute Auto 2.3 K/mm3 (1.7-7.2); Neutrophils Percent Auto 46.7 % (50.0-70.0); Platelet Count Result 189 K/mm3 (150-420); Red Blood Count 4.49 M/mm3 (4.20-5.40); Red Cell Distribution Width 12.7 % (11.6-14.4); White Blood Count 4.9 K/mm3 (4.8-10.8)
[2022-03-23 09:42] LABS: Anion Gap 6 mmol/L (8-16); Blood Urea Nitrogen 15 mg/dL (7-18); Calcium 9.2 mg/dL (8.5-10.1); Carbon Dioxide 31 mmol/L (21-32); Chloride 105 mmol/L (98-108); Estimated Glomerular Filt Rate 54; Glucose 99 mg/dL (70-99); Osmolality Calculated 294 mOsm/kg (285-295); Potassium 4.3 mmol/L (3.5-5.1); Sodium 142 mmol/L (136-145)
== END 2022-03-23 08:59 | disposition home or self-care (01) ==
LOC: CHSLAB 09:01
PROVIDERS: PCP Family Medicine
DX: I49.9 Cardiac arrhythmia, unspecified (principal)
CPT/HCPCS: 36415; 80048; 85025

== ENCOUNTER 2022-08-01 07:52 | Outpatient (CLI) | payer MEDICARE, SELFPAY ==
[2022-08-01 08:47] LABS: Cholesterol 197 mg/dL (0-200); HDL Direct 121 mg/dL (40-60); LDL Cholesterol Calculated 63 mg/dL (<130); Triglycerides 63 mg/dL (0-150)
== END 2022-08-01 07:53 | disposition home or self-care (01) ==
LOC: CHSLAB 07:55
PROVIDERS: PCP Family Medicine; Visit Provider Internal Medicine Cardiovascular Disease
DX: E78.5 Hyperlipidemia, unspecified (principal)
CPT/HCPCS: 36415; 80061

== ENCOUNTER 2022-10-02 08:30 | Outpatient (CLI) | payer MEDICARE, SELFPAY ==
--- NOTE | ~2022-10-02 | MM_ITS ---
EXAMINATION: MM screening [facility] BI w genesis HISTORY: Screening mammogram TECHNIQUE: Craniocaudal and mediolateral oblique 3-D tomosynthesis images were obtained and synthetic 2-D images were generated. CAD analysis was submitted and interpreted. COMPARISON: 09/26/2021, 09/21/2020, 08/05/2018 bilateral screening mammogram examinations BREAST PARENCHYMAL COMPOSITION: There are scattered areas of fibroglandular density. FINDINGS: There is no evidence of suspicious mass, calcification, or architectural distortion to sugg est malignancy in either breast. There has been no suspicious interval change. IMPRESSION: 1. No mammographic evidence of malignancy. 2. Recommend routine screening mammography in one year. BI-RADS Category 1: Negative Reviewed, dictated and finalized at location A.
== END 2022-10-02 08:31 | disposition home or self-care (01) ==
LOC: CHSIMG 08:32
PROVIDERS: PCP Family Medicine; Visit Provider Family Medicine
DX: Z12.31 Encounter for screening mammogram for malignant neoplasm of breast (principal)
CPT/HCPCS: 77063; 77067

== ENCOUNTER 2022-10-30 08:19 | Outpatient (CLI) | payer MEDICARE, SELFPAY ==
[2022-10-30 08:33] LABS: Basophils Absolute Auto 0.04 K/mm3 (0.00-0.10); Basophils Percent Auto 0.9 % (0.0-1.0); Eosinophils Absolute Auto 0.09 K/mm3 (0.02-0.50); Eosinophils Percent Auto 1.9 % (1.0-6.0); Hematocrit 44.7 % (35.0-42.0); Immature Granulocyte Absolute 0.01 K/mm3 (0.00-0.00); Immature Granulocyte Percent A 0.2 % (0.0-0.0); Lymphocytes Absolute Auto 2.09 K/mm3 (1.10-4.50); Lymphocytes Percent Auto 44.5 % (18.0-42.0); Mean Corpuscular HGB Conc 33.6 g/dL (32.0-36.0); Mean Corpuscular Hemoglobin 32.9 pg (27.0-31.0); Mean Platelet Volume 9.4 fl (9.2-11.8); Monocytes Absolute Auto 0.41 K/mm3 (0.10-0.90); Monocytes Percent Auto 8.7 % (2.0-11.0); Neutrophils Absolute Auto 2.1 K/mm3 (1.7-7.2); Neutrophils Percent Auto 43.8 % (50.0-70.0); Platelet Count Result 191 K/mm3 (150-420); Red Blood Count 4.56 M/mm3 (4.20-5.40); Red Cell Distribution Width 12.3 % (11.6-14.4); White Blood Count 4.7 K/mm3 (4.8-10.8)
[2022-10-30 09:02] LABS: Anion Gap 7 mmol/L (8-16); Blood Urea Nitrogen 10 mg/dL (7-18); Calcium 9.7 mg/dL (8.5-10.1); Carbon Dioxide 29 mmol/L (21-32); Chloride 102 mmol/L (98-108); Estimated Glomerular Filt Rate > 60; Glucose 100 mg/dL (70-99); Osmolality Calculated 285 mOsm/kg (285-295); Sodium 138 mmol/L (136-145)
== END 2022-10-30 08:20 | disposition home or self-care (01) ==
LOC: CHSLAB 08:23
PROVIDERS: PCP Family Medicine
DX: I48.91 Unspecified atrial fibrillation (principal)
CPT/HCPCS: 36415; 80048; 85025

== ENCOUNTER 2022-12-19 08:32 | Outpatient (CLI) | payer MEDICARE, SELFPAY ==
--- NOTE | ~2022-12-19 | DEXA_ITS ---
Bone Density Report Name: RUFINA BENEDICT Age: 77 Sex: Female Ethnicity: White Date of : 1945 Indication: postmenopausal; screening for osteoporosis; height loss; hysterectomy; Referring Provider: MARCO MULLER Study: Bone densitometry was performed. Exam Date: December 19, 2022 Accession number: [id number] Bone Density: Region BMD T-score Z-score Classification AP Spine(L1-L4) 1.131 0.8 3.2 Normal Femoral Neck (Left) 0.736 -1.0 1.1 Normal Total Hip (Left) 0.917 -0.2 1.6 Normal Femoral Neck (Right) 0.728 -1.1 1.0 Osteopenia Total Hip (Right) 0.905 -0.3 1.5 Normal Femoral Neck Mean 0.732 -1.1 1.1 Osteopenia Total Hip Mean 0.911 -0.3 1.6 Normal World Health Organization criteria for BMD impression classify patients as: Normal (T-score at or above -1.0), Osteopenia (T-score between -1.0 and -2.5), or Osteoporosis (T-score at or below -2.5). 10-year Fracture Risk(1): Major Osteoporotic Fracture 9.1% Hip Fracture 1.4% Reported Risk Factors: [place] (), Neck BMD=0.728, BMI=39.5 (1) FRAX(R) Version 3.08. Fracture probability calculated for an untreated patient. Fracture probability may be lower if the patient has received treatment. Clinical Information Provided by Patient: Has used the following medications: Calcium, daily vitamin Has the following medical conditions: Hysterectomy Patient maximum height was 63 No regular weight bearing exercise Onset of menses at age 13 Number of children 2 Impression: The patient has low bone mass, based on the Right Femoral Neck T-score. Discussion: BONE DENSITY IS LOW AT ONE OR MORE SKELETAL SITES. This patient's lowest T-score is low at one or more skeletal sites. It meets the World Health Organization's (WHO) criteria for ?low bone mass? (T-score between -1.0 and -2.5). The patient's 10-year risk of fracture as calculated by FRAX is less than the threshold where pharmacological therapy is recommended by the National Osteoporosis Foundation (NOF). However, all treatment decisions require clinical judgment and consideration of individual patient factors, including patient preferences, comorbidities, previous drug use, risk factors not captured in the FRAX model (e.g., frailty, falls, vitamin D deficiency, increased bone turnover, interval significant decline in bone density) and possible under or overestimation of fracture risk by FRAX. The patient should follow a healthful lifestyle (good nutrition with adequate calcium and vitamin D, and appropriate weight-bearing exercise). Follow-Up: Consider repeating this study in 2 to 3 years to reassess this patient's status, or sooner if there is some new clinical indication. Reported by: Dr. Isaias Sanabria on 12/19/2022 9:09:00 AM.
== END 2022-12-19 08:33 | disposition home or self-care (01) ==
LOC: CHSIMG 08:34
PROVIDERS: PCP Family Medicine; Visit Provider Nurse Practitioner Family
DX: Z78.0 Asymptomatic menopausal state (principal); M85.89 Other specified disorders of bone density and structure, multiple sites
CPT/HCPCS: 77080

== ENCOUNTER 2023-02-04 10:02 | Emergency (ER) | payer MEDICARE, SELFPAY ==
[2023-02-04] VITALS (7 sets, daily range): BP systolic 138–182; BP diastolic 65–81; PULSE 47–60; RESP 13–21; TEMP 36.8; O2SAT 97–100
--- NOTE | ~2023-02-04 | CT_ITS ---
EXAMINATION: CTA chest PE protocol DATE: 02/04/2023 11:33 CDT INDICATION: Shortness of breath TECHNIQUE: Computed tomographic angiography (CTA) of the chest was performed with 100 mL Omnipaque-35 0 intravenous contrast. The dose-length product was 549.30 mGy-cm. Maximum intensity projection 3D-re constructions of the aorta and other arteries were constructed by the technologist on a separate work station. Automated exposure control and iterative reconstruction technique were employed. COMPARISON: CT dated 08/05/2020. FINDINGS: No significant pleural or pericardial effusion. Cardiomegaly. Study is technically adequate without evidence for pulmonary embolism. No evidence for aortic aneurysm or dissection. Small hiatal hernia. Status post cholecystectomy. No thoracic lymphadenopathy. Patchy groundglass opacities are p resent in both lobes which are nonspecific. No pneumothorax. No endobronchial lesions. IMPRESSION: 1. Patchy bilateral groundglass opacities, nonspecific. Consider pneumonia, small airway disease and respiratory bronchiolitis. Reviewed, dictated and finalized at location A. IMPRESSION: 1. Patchy bilateral groundglass opacities, nonspecific. Consider pneumonia, sma ll airway disease and respiratory bronchiolitis.
--- NOTE | 2023-02-04 10:08 | ECG_ITS ---
Measurements Intervals [place] Rate: 60 P: RI: 0 QRS: 22 QRSD: 93 T: 38 QT: 442 QTc: 443 Interpretive Statements SINUS RHYTHM WITH FIRST-DEGREE AV BLOCK WITH PACS LOW QRS VOLTAGE IN PRECORDIAL LEADS [QRS DEFLECTION < 1.0 mV IN CHEST LEADS] NONSPECIFIC T-WAVE ABNORMALITY ABNORMAL ECG COMPARED TO ECG 09/29/2021 10:38:35 ATRIAL ECTOPICS ARE SEEN, NO OTHER SIGNIFICANT DIFFERENCE Electronically Signed On 02-05-2023 6:59:37 CDT by Flavio Walton M.D.
--- NOTE | 2023-02-04 10:19 | ED.GENADULT ---
HPI - General Adult General Chief complaint: Arrhythmia/Palpitations Stated complaint: palpitations Time Seen by Provider: 02/04/23 10:06 History of Present Illness HPI narrative: Klarissa Catalan is a 77 y/o female PMHx of Afib/HTN/ HLD / hx of two ablations, currently on Eliquis, presents today with reports of having intermittent palpitations with chest pain for about a month, but the last three days it has been more frequent. She has not noticed anything to correlate the cause of her palpitations/ chest pain. States she is having these symptoms at rest and on exertion. Describes her chest pain as burning / tight radiates to her shoulders and sometimes a knife to her middle upper back. She also reports that she has been getting more short of breath with exertion over the past few days as well. Currently denies chest pain/ palpitations She also adds that she has felt a little flushed / hot to her face off and on the past couple days Related Data Home Medications Medication Instructions Recorded Confirmed multivitamin 1 cap PO DAILY 07/29/19 12/11/22 acetaminophen 650 mg 650 mg PO Q12H 08/06/19 12/11/22 tablet,extended release (Tylenol Arthritis Pain) calcium carbonate 600 mg calcium 600 mg PO DAILY 01/05/21 12/11/22 (1,500 mg) tablet metoprolol succinate 25 mg 12.5 mg PO .Every other day 06/15/22 12/11/22 tablet,extended release 24 hr flecainide 100 mg tablet 100 mg PO Q12H 11/23/22 12/11/22 lorazepam 1 mg tablet 1 mg PO DAILY PRN 12/11/22 Allergies Allergy/AdvReac Type Severity Reaction Status Date / Time escitalopram [Lexapro] Allergy Intermediate Diarrhea Verified 02/04/23 10:21 Penicillins Allergy Intermediate Rash Verified 02/04/23 10:21 atorvastatin AdvReac Intermediate Muscle Pain Verified 02/04/23 10:21 Review of Systems Review of Systems: CONSTITUTIONAL: Denies fever, chills, or sweats. EYES: Denies visual changes, redness, or discharge. ENT: Denies rhinorrhea, congestion, sore throat, or otalgia. CARDIOVASCULAR: Reports chest pain off and on for 3 days along with palpitations RESPIRATORY: Denies cough or dyspnea. GASTROINTESTINAL: Denies abdominal pain, nausea, vomiting, or diarrhea. GENITOURINARY: Denies dysuria or hematuria. SKIN: Denies rash or itching. MUSCULOSKELETAL: Denies back pain, joint pain, or myalgia. NEUROLOGIC: Denies headache, numbness, dizziness, or weakness. PSYCHIATRIC: Denies anxiety or depression. 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 White coat syndrome with hypertension Surgical History Surgical History H/O cardiac radiofrequency ablation History of bilateral knee replacement History of cholecystectomy History of hysterectomy Family History Family History Father Acute myocardial infarction Family history of arthritis Social History Social History Smoking status: Never smoker Alcohol intake: never Substance use: never Substance use type: does not use Lack of Transportation: No Lack of Food: Never True Current Housing: I Have Housing Concerned About Future Housing: No Difficulty Paying Gas/Electric Bills: No Difficulty Paying for Meds: No Currently Unemployed: No Education: Trade/Vocational Certificate Difficulty w/ Childcare or Family Care: No Living arrangements: with family Additional living arrangements comments: LIVES AT HOME W/ , ED. Occupation/Education: retired Additional occupation/education comments: [employer] Gender identity (if verbalized by the patient): Female Sexual Orientation (if Verbalized by the Patient): Straight or Heterosexual Spiritua
[2023-02-04 10:39] LABS: Basophils Absolute Auto 0.1 K/mm3 (0.0-0.1); Basophils Percent Auto 1.2 % (0.2-1.2); Eosinophils Percent Auto 0.8 % (0-4.4); Hematocrit 46.2 % (37.0-47.0); Hemoglobin 15.1 g/dL (12.0-15.0); Immature Granulocyte Absolute 0.01 K/mm3 (0.00-0.031); Immature Granulocyte Percent A 0.2 % (0-0.5); Lymphocytes Absolute Auto 1.49 K/mm3 (0.9-3.2); Lymphocytes Percent Auto 29.2 % (18.3-44.2); Mean Corpuscular HGB Conc 32.7 g/dl (32-36); Mean Corpuscular Hemoglobin 31.9 pg (26-34); Mean Corpuscular Volume 97.5 fl (80-100); Monocytes Absolute Auto 0.4 K/mm3 (0.1-0.6); Monocytes Percent Auto 6.8 % (2.6-8.5); Neutrophils Absolute Auto 3.2 K/mm3 (1.3-6.7); Neutrophils Percent Auto 61.8 % (45.5-73.1); Platelet Count Result 186 k/mm3 (150-375); Red Blood Count 4.74 M/mm3 (4.2-5.4); Red Cell Distribution Width 12.7 % (11.5-14.5); White Blood Count 5.1 K/mm3 (4.5-10.0)
[2023-02-04 10:50] LABS: Partial Thromboplastin Time 33.6 SECONDS (22.3-36.8)
[2023-02-04 10:56] LABS: Alanine Aminotransferase 20 U/L (6-35); Albumin Level 4.4 g/dL (3.5-5.1); Alkaline Phosphatase 76 U/L (38-126); Anion Gap 5 mmol/L (8-16); Aspartate Amino Transferase 31 U/L (14-36); Bilirubin,Total 2.6 mg/dL (0.2-1.3); Blood Urea Nitrogen 11 mg/dL (7-17); Calcium 9.9 mg/dL (8.4-10.2); Carbon Dioxide 27 mmol/L (22-30); Chloride 103 mmol/L (98-107); Estimated CRCL calculation 65 ml/min; Estimated Glomerular Filt Rate > 60; Glucose 104 mg/dL (65-110); Potassium 3.8 mmol/L (3.4-5.0); Sodium 135 mmol/L (137-145)
[2023-02-04 11:14] LABS: NT Pro B Type Natriuretic Pept 412 pg/mL (19.9-100); Troponin I < 0.012 ng/mL (0.000-0.034)
[2023-02-04 11:20] LABS: Influenza A QL RT-PCR Negative (Negative); Influenza B QL RT-PCR Negative (Negative); RSV RNA, RT-PCR Negative (Negative); SARS-CoV-2 RNA PCR Negative (Negative)
[2023-02-04 12:22] LABS: Appearance Urine Clear (Clear); Bilirubin Urine Negative (Negative); Blood Urine Negative (Negative); Color Urine Yellow (Yellow); Glucose Urine UA Negative (Negative); Ketones Urine Negative (Negative); Leukocyte Esterase Ur Negative LEU/UL (Negative); Nitrate Urine Negative (Negative); Protein Urine Negative (Negative); Specific Grav Ur 1.019 (1.001-1.035)
[2023-02-04 12:33] LABS: Add Urine Microscopic? NO
[2023-02-04 13:51] LABS: Troponin I < 0.012 ng/mL (0.000-0.034)
== END 2023-02-04 14:33 | disposition home or self-care (01) ==
PROVIDERS: Emergency Provider Nurse Practitioner Family; PCP Family Medicine
DX: I48.91 Unspecified atrial fibrillation (principal); R06.02 Shortness of breath; Z20.822 Contact with and (suspected) exposure to COVID-19; I10 Essential (primary) hypertension; E78.5 Hyperlipidemia, unspecified; I48.20 Chronic atrial fibrillation, unspecified; H30.92 Unspecified chorioretinal inflammation, left eye; H30.002 Unspecified focal chorioretinal inflammation, left eye; F41.1 Generalized anxiety disorder; Z96.653 Presence of artificial knee joint, bilateral; Z90.49 Acquired absence of other specified parts of digestive tract; Z90.710 Acquired absence of both cervix and uterus; E66.3 Overweight; Z68.36 Body mass index [BMI] 36.0-36.9, adult; Z79.01 Long term (current) use of anticoagulants
CPT/HCPCS: 36415; 71275; 80053; 81003; 83880; 84484; 85025; 85730; 87637; 93005; 99284; Q9967

== ENCOUNTER 2023-02-09 08:09 | Outpatient (CLI) | payer MEDICARE, SELFPAY ==
--- NOTE | 2023-02-09 08:14 | ECG_ITS ---
Measurements Intervals [place] Rate: 49 P: 76 VA: 294 QRS: 74 QRSD: 115 T: 50 QT: 499 QTc: 452 Interpretive Statements SINUS BRADYCARDIA WITH FIRST DEGREE AV BLOCK LOW QRS VOLTAGE IN PRECORDIAL LEADS [QRS DEFLECTION < 1.0 mV IN CHEST LEADS] POOR R-WAVE PROGRESSION ABNORMAL ECG COMPARED TO ECG 02/04/2023 10:10:06 VA INTERVAL IS LONGER AND PACS ARE NO LONGER PRESENT Electronically Signed On 02-09-2023 15:17:33 CDT by Flavio Walton M.D.
== END 2023-02-09 08:10 | disposition home or self-care (01) ==
LOC: CHSCARD 08:11
PROVIDERS: PCP Family Medicine; Visit Provider Internal Medicine Cardiovascular Disease
DX: I48.91 Unspecified atrial fibrillation (principal); R00.1 Bradycardia, unspecified; I44.0 Atrioventricular block, first degree; R94.31 Abnormal electrocardiogram [ECG] [EKG]
CPT/HCPCS: 93005

== ENCOUNTER 2023-03-17 10:31 | Outpatient (CLI) | payer MEDICARE, SELFPAY ==
--- NOTE | ~2023-03-17 | MR_ITS ---
MRI of the cervical spine Clinical History: Spinal cord disease Technique: Axial T2-weighted and gradient images, and sagittal T1-weighted, T2-weighted, and STIR rush ges were acquired. Findings: There is no fracture or subluxation of the cervical spine. Vertebral bodies maintain normal height and alignment. No bone marrow signal abnormality seen. At C2-C3, there is no disc bulge or herniation. No spinal canal stenosis, cord compression, or neural foraminal narrowing. At C3-C4, there is mild disc ossify complex and minimal facet arthropathy. There is mild bilateral ne ural foraminal narrowing, right worse than left. No barry spinal canal stenosis or cord compression. At C4-C5, there is minimal disc osteophyte complex. There is right facet arthropathy with right neura l foraminal narrowing. Left neural foramen preserved. No central canal stenosis or cord compression. At C5-C6, there is disc osteophyte complex resulting in mild canal stenosis and minimal flattening th e ventral cord. There is bilateral neural foraminal narrowing, right worse than left, with bilateral facet arthropathy. At C6-C7, there is minimal disc bulge. No barry spinal canal stenosis or cord compression. There is b ilateral neural foraminal narrowing with probable bilateral facet arthropathy. No abnormal signal seen in the spinal cord. Paravertebral soft tissues are unremarkable. Impression: Moderate degenerative spondylosis of the lower cervical spine, worst at C5-C6. Reviewed, dictated and finalized at [facility]. PMENT OPERAT0R Impression: Moderate degenerative spondylosis of the lower cervical spine, worst at C5-C6.
== END 2023-03-17 10:32 | disposition home or self-care (01) ==
LOC: CHSIMG 10:32
PROVIDERS: PCP Family Medicine; Visit Provider Family Medicine
DX: G95.9 Disease of spinal cord, unspecified (principal); M43.02 Spondylolysis, cervical region
CPT/HCPCS: 72141

== ENCOUNTER 2023-03-30 13:49 | Outpatient (CLI) | payer MEDICARE, SELFPAY ==
[2023-03-30 14:06] LABS: Basophils Absolute Auto 0.01 K/mm3 (0.00-0.10); Basophils Percent Auto 0.1 % (0.0-1.0); Hematocrit 44.5 % (35.0-42.0); Hemoglobin 15.2 g/dL (11.7-13.8); Immature Granulocyte Absolute 0.03 K/mm3 (0.00-0.00); Immature Granulocyte Percent A 0.3 % (0.0-0.0); Lymphocytes Absolute Auto 0.93 K/mm3 (1.10-4.50); Lymphocytes Percent Auto 10.4 % (18.0-42.0); Mean Corpuscular HGB Conc 34.2 g/dL (32.0-36.0); Mean Corpuscular Hemoglobin 32.3 pg (27.0-31.0); Mean Corpuscular Volume 94.5 fL (78.0-102.0); Mean Platelet Volume 9.7 fl (9.2-11.8); Monocytes Absolute Auto 0.13 K/mm3 (0.10-0.90); Monocytes Percent Auto 1.5 % (2.0-11.0); Neutrophils Absolute Auto 7.8 K/mm3 (1.7-7.2); Neutrophils Percent Auto 87.7 % (50.0-70.0); Platelet Count Result 205 K/mm3 (150-420); Red Blood Count 4.71 M/mm3 (4.20-5.40); Red Cell Distribution Width 12.3 % (11.6-14.4); White Blood Count 8.9 K/mm3 (4.8-10.8)
[2023-03-30 14:33] LABS: Alanine Aminotransferase 26 U/L (14-59); Albumin Level 4.1 g/dL (3.4-5.0); Alkaline Phosphatase 69 U/L (46-116); Anion Gap 3 mmol/L (8-16); Aspartate Amino Transferase 20 U/L (15-37); Bilirubin,Total 1.9 mg/dL (0.00-1.00); Blood Urea Nitrogen 12 mg/dL (7-18); Calcium 10.1 mg/dL (8.5-10.1); Carbon Dioxide 34 mmol/L (21-32); Chloride 93 mmol/L (98-108); Estimated Glomerular Filt Rate 55; Glucose 145 mg/dL (70-99); Osmolality Calculated 272 mOsm/kg (285-295); Potassium 3.3 mmol/L (3.5-5.1); Sodium 130 mmol/L (136-145); Total Protein 7.2 g/dL (6.4-8.2)
[2023-03-30 15:11] LABS: Vitamin B12 806 pg/mL (193-986)
[2023-03-30 15:12] LABS: Folic Acid > 20.0 ng/mL (8.6->20); Thyroid Stimulating Hormone Reflex 0.19 u/IU/mL (0.36-3.74)
[2023-03-30 15:13] LABS: Free T4 Free Thyroxine Reflex 1.07 ng/dL (0.76-1.46)
== END 2023-03-30 13:50 | disposition home or self-care (01) ==
LOC: CHSLAB 13:51
PROVIDERS: PCP Family Medicine; Visit Provider Family Medicine
DX: E11.9 Type 2 diabetes mellitus without complications (principal); E53.8 Deficiency of other specified B group vitamins; I10 Essential (primary) hypertension
CPT/HCPCS: 36415; 80053; 82607; 82746; 84439; 84443; 85025

== ENCOUNTER 2023-05-29 08:31 | Outpatient (CLI) | payer MEDICARE, SELFPAY ==
[2023-05-29 09:52] LABS: Uric Acid 3.6 mg/dL (2.6-6.0)
== END 2023-05-29 08:32 | disposition home or self-care (01) ==
LOC: CHSLAB 08:34
PROVIDERS: PCP Family Medicine; Visit Provider Family Medicine
DX: M10.9 Gout, unspecified (principal)
CPT/HCPCS: 36415; 84550

== ENCOUNTER 2023-06-30 09:16 | Emergency (ER) | payer MEDICARE, SELFPAY ==
[2023-06-30] VITALS (7 sets, daily range): BP systolic 138–179; BP diastolic 66–93; PULSE 61–114; RESP 14–21; TEMP 36.4–36.6; O2SAT 95–100
--- NOTE | ~2023-06-30 | XR_ITS ---
EXAMINATION: XR chest 2V DATE: 06/30/2023 09:47 INDICATION: Cardiac arrhythmia. Chest pain. TECHNIQUE: PA and lateral views of the chest were obtained. COMPARISON: Chest radiograph dated 12/27/[address] dated 02/04/2023 FINDINGS: Mild linear discoid atelectasis/scarring at the left lower lung zone. No other airspace opacities, pu lmonary edema, pleural effusion or pneumothorax. The cardiomediastinal silhouette is normal. Cholecys tectomy clips in right upper quadrant. IMPRESSION: 1. Mild linear discoid atelectasis/scarring at the left lower lung zone. Reviewed, dictated and finalized at location A.
--- NOTE | 2023-06-30 09:19 | ECG_ITS ---
Measurements Intervals [place] Rate: 101 P: MD: 0 QRS: 4 QRSD: 85 T: -10 QT: 363 QTc: 472 Interpretive Statements SINUS OR ECTOPIC ATRIAL TACHYCARDIA BORDERLINE ST-T WAVE ABNORMALITY- DIFFUSE LEADS BORDERLINE ECG COMPARED TO ECG 02/09/2023 08:35:49 SINUS OR ECTOPIC ATRIAL TACHYCARDIA NOW PRESENT ST-T WAVE ABNORMALITY NOW PRESENT Electronically Signed On 06-30-2023 17:43:25 CDT by Edd Hardin D.O.
--- NOTE | 2023-06-30 09:30 | ED.ARRPALP ---
HPI - Arrhythmia/Palpitations General Chief Complaint: Arrhythmia/Palpitations Stated Complaint: irregular heart beat Time Seen by Provider: 06/30/23 09:18 History of Present Illness HPI narrative: 78-year-old female with a history of paroxysmal AFib, hypertension, dyslipidemia, paroxysmal SVT presents to the emergency department for palpitations x1 week. Patient states she has been feeling palpitations intermittently, states sometimes she will have a 10-15 minute break in the started again. She does endorse she has been under increased stress recently which may be attributing to this. 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 She had a cardiac ablation in March of 2022 and again in October 2022 for atrial fibrillation at [facility]. States she was taken off of her flecainide in April of 2023 due to improvement in her atrial fibrillation. She is still taking Eliquis and metoprolol as directed. She reports she has felt increased fatigue and exhaustion in the past few days as well as intermittent chest pain. States the chest pain is substernal and at times radiates to her left shoulder. She describes the chest pain as aching, tightness and burning. She does endorse that this gets worse with exertion but also can occur while she is lying still. Denies history of CAD, no prior history of stents or CABG, denies CHF. She does endorse family history of CAD. States she had a cardiac catheterization done in 2016 which was unremarkable. Denies smoking. She is also endorsing intermittent shortness of breath in a mild nonproductive cough. Denies fever, abdominal pain, lower extremity edema. The patient is scheduled to for a Holter monitor in the following week. Related Data Home Medications Medication Instructions Recorded Confirmed acetaminophen 650 mg 650 mg PO Q12H 08/06/19 05/30/23 tablet,extended release (Tylenol Arthritis Pain) calcium carbonate 600 mg calcium 600 mg PO DAILY 01/05/21 05/30/23 (1,500 mg) tablet metoprolol succinate 25 mg 12.5 mg PO DAILY 03/01/23 05/30/23 tablet,extended release 24 hr [id number]-todenn 1 tablet PO DAILY 05/30/23 05/30/23 tablet (Multivitamin 50 Plus tablet) Allergies Allergy/AdvReac Type Severity Reaction Status Date / Time escitalopram [Lexapro] Allergy Intermediate Diarrhea Verified 06/30/23 09:28 Penicillins Allergy Intermediate Rash Verified 06/30/23 09:28 atorvastatin AdvReac Intermediate Muscle Pain Verified 06/30/23 09:28 Review of Systems Review of Systems: CONSTITUTIONAL: Denies fever, chills, or sweats. EYES: Denies visual changes, redness, or discharge. ENT: Denies rhinorrhea, congestion, sore throat, or otalgia. CARDIOVASCULAR: See HPI RESPIRATORY: See HPI GASTROINTESTINAL: Denies abdominal pain, nausea, vomiting, or diarrhea. GENITOURINARY: Denies dysuria or hematuria. SKIN: Denies rash or itching. MUSCULOSKELETAL: Denies back pain, joint pain, or myalgia. NEUROLOGIC: Denies headache, numbness, or weakness. PSYCHIATRIC: Denies anxiety or depression. 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
[2023-06-30] MEDS: ONDANSETRON INJ 4 MG/2 ML VIAL IV PUSH (09:35)
[2023-06-30] MEDS: ASPIRIN 81 MG CHEWABLE TABLET 324 MG PO (09:38)
[2023-06-30 09:41] LABS: Basophils Percent Auto 0.7 % (0.2-1.2); Eosinophils Absolute Auto 0.1 K/mm3 (0-0.3); Eosinophils Percent Auto 1.6 % (0-4.4); Hemoglobin 15.5 g/dL (12.0-15.0); Lymphocytes Absolute Auto 1.72 K/mm3 (0.9-3.2); Mean Corpuscular HGB Conc 33.7 g/dl (32-36); Mean Corpuscular Hemoglobin 32.6 pg (26-34); Mean Corpuscular Volume 96.6 fl (80-100); Mean Platelet Volume 9.6 fl (7.4-10.4); Monocytes Absolute Auto 0.3 K/mm3 (0.1-0.6); Monocytes Percent Auto 7.7 % (2.6-8.5); Neutrophils Absolute Auto 2.3 K/mm3 (1.3-6.7); Platelet Count Result 223 k/mm3 (150-375); Red Blood Count 4.76 M/mm3 (4.2-5.4); Red Cell Distribution Width 13.1 % (11.5-14.5); White Blood Count 4.4 K/mm3 (4.5-10.0)
--- NOTE | 2023-06-30 09:48 | PC.NURSE ---
Lab called about add on blood work
[2023-06-30 09:51] LABS: Alanine Aminotransferase 21 U/L (6-35); Albumin Level 4.2 g/dL (3.5-5.1); Alkaline Phosphatase 81 U/L (38-126); Anion Gap 3 mmol/L (8-16); Aspartate Amino Transferase 29 U/L (14-36); Bilirubin,Total 1.8 mg/dL (0.2-1.3); Blood Urea Nitrogen 9 mg/dL (7-17); Calcium 9.8 mg/dL (8.4-10.2); Carbon Dioxide 29 mmol/L (22-30); Chloride 105 mmol/L (98-107); Estimated CRCL calculation 74 ml/min; Estimated Glomerular Filt Rate > 60; Glucose 109 mg/dL (65-110); Lipase 87 U/L (23-300); Potassium 3.5 mmol/L (3.4-5.0); Sodium 137 mmol/L (137-145)
[2023-06-30 09:53] LABS: INR 1.1; Prothrombin Time 14.4 Seconds (11.1-14.7)
[2023-06-30 09:55] LABS: Partial Thromboplastin Time 36.3 Seconds (22.3-36.8)
[2023-06-30 10:02] LABS: Troponin I < 0.012 ng/mL (0.000-0.034)
[2023-06-30 10:22] LABS: Influenza A QL RT-PCR Negative (Negative); Influenza B QL RT-PCR Negative (Negative); RSV RNA, RT-PCR Negative (Negative); SARS-CoV-2 RNA PCR Negative (Negative)
[2023-06-30 10:31] LABS: NT Pro B Type Natriuretic Pept 194 pg/mL (19.9-100)
--- NOTE | 2023-06-30 10:42 | ECG_ITS ---
Measurements Intervals [place] Rate: 60 P: MN: 0 QRS: -3 QRSD: 80 T: -7 QT: 409 QTc: 412 Interpretive Statements JUNCTIONAL RHTYHM WITH INTERMITTENT SINUS RHYTHM ATRIAL PREMATURE COMPLEXES DELAYED PRECORDIAL R/S TRANSITION LOW QRS VOLTAGE IN PRECORDIAL LEADS BORDERLINE T WAVE ABNORMALITY- ANT/INF LEADS ABNORMAL ECG COMPARED TO ECG 06/30/2023 09:23:55 JUNCTIONAL RHYTHM WITH INTERMITTENT SINUS RHYTHM NOW PRESENT Electronically Signed On 06-30-2023 17:49:40 CDT by Edd Hardin D.O.
[2023-06-30 11:49] LABS: Thyroid Stimulating Hormone Reflex 0.633 uIU/mL (0.465-4.68)
--- NOTE | 2023-06-30 12:13 | ECG_ITS ---
Measurements Intervals [place] Rate: 54 P: 63 ME: 179 QRS: -4 QRSD: 86 T: 6 QT: 381 QTc: 363 Interpretive Statements SINUS BRADYCARDIA LOW QRS VOLTAGE IN PRECORDIAL LEADS BORDERLINE T WAVE ABNORMALITY- ANT/INF LEADS BASELINE ARTIFACT- I, II, AVR BORDERLINE ECG COMPARED TO ECG 06/30/2023 10:43:35 SINUS BRADYCARDIA NOW PRESENT Electronically Signed On 06-30-2023 18:40:32 CDT by Edd Hardin D.O.
[2023-06-30 12:46] LABS: Troponin I < 0.012 ng/mL (0.000-0.034)
== END 2023-06-30 13:30 | disposition home or self-care (01) ==
PROVIDERS: Emergency Medicine; Emergency Provider Physician Assistant; PCP Family Medicine
DX: R00.2 Palpitations (principal); R07.89 Other chest pain; I49.3 Ventricular premature depolarization; I49.1 Atrial premature depolarization; R06.02 Shortness of breath; Z20.822 Contact with and (suspected) exposure to COVID-19; I48.0 Paroxysmal atrial fibrillation; I10 Essential (primary) hypertension; E78.5 Hyperlipidemia, unspecified; E66.3 Overweight; Z68.36 Body mass index [BMI] 36.0-36.9, adult; F41.1 Generalized anxiety disorder; Z96.653 Presence of artificial knee joint, bilateral; Z90.49 Acquired absence of other specified parts of digestive tract; Z90.710 Acquired absence of both cervix and uterus; Z79.01 Long term (current) use of anticoagulants; R94.31 Abnormal electrocardiogram [ECG] [EKG]
CPT/HCPCS: 36415; 71046; 80053; 83690; 83735; 83880; 84443; 84484; 85025; 85610; 85730; 87637; 93005; 96374; 99284; A9270; J2405

== ENCOUNTER 2023-07-05 12:52 | Outpatient (CLI) | payer MEDICARE, SELFPAY ==
--- NOTE | 2023-08-06 16:27 | WPDHOLTEREM ---
Holter/Event Monitor Holter/Event Monitor Date of procedure: 07/25/23 Holter/Event Procedure: 48 Hr Holter Monitor Indications: PAF Conclusion: 1. 48 hour holter monitor on 07/25/23. 2. Predominant rhythm is sinus rhythm. HR range 38-125 bpm; average HR 59 bpm. HR at 38 bpm was at 06:20. HR at 125 bpm was at 13:43. 3. There are 2,024 premature supraventricular complexes, 128 supraventricular couplets. There are 11 episodes of atrial tachycardia, fastest at 176 bpm and longest lasting 4 beats. 4. There are 1,920 premature ventricular complexes, 89 ventricular couplets, 3,447 ventricular bigeminy and 101 ventricular trigeminy. No ventricular tachycardia. 5. No sinoatrial or atrioventricular blocks. No significant pauses greater than 2 seconds. 6. Patient reports symptom of nausea with irregular heart beat which demonstrate sinus rhythm at 56 bpm.
== END 2023-07-05 12:53 | disposition home or self-care (01) ==
LOC: ANHCARD 12:53
PROVIDERS: PCP Family Medicine; Visit Provider Internal Medicine Cardiovascular Disease
DX: I48.0 Paroxysmal atrial fibrillation (principal)
CPT/HCPCS: 93225; 93226

== ENCOUNTER 2023-08-02 11:31 | Outpatient (CLI) | payer MEDICARE, SELFPAY ==
--- NOTE | ~2023-08-02 | XR_ITS ---
EXAMINATION: XR elbow RT min 3V DATE: 08/02/2023 11:53 INDICATION: Severe right elbow pain and limited range of motion post fall TECHNIQUE: Anteroposterior, two oblique and lateral views of the right elbow were obtained. COMPARISON: None. FINDINGS: There is approximately 1.5 cm depression of a small intra-articular fracture along the periphery of t he right radial head. The fracture fragment comprises less than 20% of the articular surface area. No other fractures identified. There is a small elbow joint effusion with displacement of the anterior but not the posterior fat pad. Mild osteoarthritis at the right elbow. IMPRESSION: 1. Mild depression of a small intertubercular fracture fragment at the periphery of the right radial head. Reviewed, dictated and finalized at location A. IMPRESSION: 1. Mild depression of a small intertubercular fracture fragment at the peripher y of the right radial head.
== END 2023-08-02 11:32 | disposition home or self-care (01) ==
LOC: CHSIMG 11:33
PROVIDERS: PCP Family Medicine; Visit Provider Family Medicine
DX: M79.601 Pain in right arm (principal); S52.121A Displaced fracture of head of right radius, initial encounter for closed fracture
CPT/HCPCS: 73080

== ENCOUNTER 2023-09-29 06:56 | Outpatient (CLI) | payer MEDICARE, SELFPAY ==
--- NOTE | ~2023-09-29 | MR_ITS ---
Procedure: MR lumbar spine wo con Ordering provider: Saul Sosa DO History: . M54.50 - Low back pain, unspecified . Comparison: None. Technique: MRI thoracic spine without contrast. FINDINGS: SPINAL CORD: Normal. The conus ends at the level of L1-L2. VERTEBRAL BODIES: Normal height and alignment. No compression fracture. Normal marrow signal. Minimal anterolisthesis at the level of L4-L5. DISK SPACES: Narrowing of the disc L1-L2. Slight narrowing of the disc L5 S1.. Annular fissure seen a t the level of L5-S1. Mild diffuse disc bulge at the level of L1-L2. Diffuse disc bulge at the level of L5-S1 with bilateral narrowing of the foramina and the root compre ssion more on the left side STENOSIS: Mild spinal canal stenosis at the level of of L4-L5 with diffuse disc bulge and bilateral n arrowing of the foramina. PARASPINOUS SOFT TISSUES: Normal. IMPRESSION: No compression fracture or dislocation. Minimal anterolisthesis at the level of L4-L5. Multilevel degenerative disc disease. Multilevel disc bulges. narrowing of the left intervertebral foramen nerve root compression of the level of L5-S1. Annulus fissure at the level of L5-S1. Reviewed, dictated and finalized at location A. IMPRESSION: No compression fracture or dislocation. Minimal anterolisthesis at the level of L4-L5. Multilevel degenerative disc disease. Multilevel disc bulges. narrowing of the left intervertebral foramen nerve root compression of the leve l of L5-S1. Annulus fissure at the level of L5-S1.
== END 2023-09-29 06:57 | disposition home or self-care (01) ==
PROVIDERS: PCP Family Medicine; Visit Provider Family Medicine
DX: G89.29 Other chronic pain (principal); M54.50 Low back pain, unspecified; M43.16 Spondylolisthesis, lumbar region; M51.36 Other intervertebral disc degeneration, lumbar region; M53.87 Other specified dorsopathies, lumbosacral region
CPT/HCPCS: 72148

== ENCOUNTER 2023-10-09 08:16 | Outpatient (CLI) | payer MEDICARE, SELFPAY ==
--- NOTE | ~2023-10-09 | MM_ITS ---
EXAMINATION: MM screening [facility] BI w [facility] HISTORY: Screening mammogram TECHNIQUE: Craniocaudal and mediolateral oblique 3-D tomosynthesis images were obtained and synthetic 2-D images were generated. CAD analysis was submitted and interpreted. COMPARISON: 10/02/2022, 09/26/2021, 09/21/2020 BREAST PARENCHYMAL COMPOSITION:Not Dense. There are scattered areas of fibroglandular density. FINDINGS: No suspicious mass, calcification, or architectural distortion are identified in either david ast to suggest malignancy. There has been no suspicious interval change. IMPRESSION: No mammographic evidence of malignancy. Recommend routine screening mammography in one year. BI-RADS Category 1: Negative Reviewed, dictated and finalized at location .
== END 2023-10-09 08:17 | disposition home or self-care (01) ==
LOC: CHSIMG 08:18
PROVIDERS: PCP Family Medicine; Visit Provider Family Medicine
DX: Z12.31 Encounter for screening mammogram for malignant neoplasm of breast (principal)
CPT/HCPCS: 77063; 77067

== ENCOUNTER 2023-11-09 06:34 | Emergency (ER) | payer MEDICARE, SELFPAY ==
[2023-11-09] VITALS (9 sets, daily range): BP systolic 122–155; BP diastolic 66–87; PULSE 86–104; RESP 15–20; TEMP 36.2–36.4; O2SAT 97–100
--- NOTE | ~2023-11-09 | XR_ITS ---
EXAMINATION: XR chest 2V DATE: 11/09/2023 06:56 INDICATION: Chest pain and shortness of breath TECHNIQUE: PA and lateral views of the chest were obtained. COMPARISON: Chest radiograph dated 06/30/2023 FINDINGS: Unchanged mild linear discoid atelectasis/scarring at the left lower lung zone. No new airspace opaci ties, pulmonary edema, pleural effusion or pneumothorax. Heart size is normal. Dual lead pacemaker/AI CD seen with leads projecting over the expected locations of the right atrium and right ventricle. Ch olecystectomy clips in right upper quadrant. Mild thoracic dextrocurvature with bridging osteophytes at multiple levels consistent with diffuse idiopathic skeletal hyperostosis (DISH). IMPRESSION: 1. Unchanged mild discoid atelectasis/scarring the left lower lung zone. Reviewed, dictated and finalized at location A.
--- NOTE | 2023-11-09 06:39 | ECG_ITS ---
Test Date: 2023-11-09 06:43:32 Measurements Intervals [place] Rate: 96 P: -39 VA: 225 QRS: 2 QRSD: 80 T: 29 QT: 348 QTc: 440 Interpretive Statements ELECTRONIC ATRIAL PACEMAKER WITH INHIBITION LOW QRS VOLTAGE IN PRECORDIAL LEADS CANNOT R/O SEPTAL INFARCT, AGE INDETERMINATE CONSIDER INFERIOR INFARCT, AGE INDETERMINATE BORDERLINE T WAVE ABNORMALITY- ANTERIOR LEADS BASELINE ARTIFACT- I, II, III, AVR, AVL, AVF ABNORMAL ECG No previous ECG available for comparison Electronically Signed On 11-09-2023 07:47:58 CDT by Edd Hardin D.O.
[2023-11-09 06:52] LABS: Basophils Absolute Auto 0.1 K/mm3 (0.0-0.1); Basophils Percent Auto 0.8 % (0.2-1.2); Eosinophils Absolute Auto 0.1 K/mm3 (0-0.3); Eosinophils Percent Auto 1.1 % (0-4.4); Hematocrit 45.9 % (37.0-47.0); Hemoglobin 15.4 g/dL (12.0-15.0); Immature Granulocyte Absolute 0.01 K/mm3 (0.00-0.031); Immature Granulocyte Percent A 0.2 % (0-0.5); Lymphocytes Absolute Auto 1.98 K/mm3 (0.9-3.2); Lymphocytes Percent Auto 31.4 % (18.3-44.2); Mean Corpuscular HGB Conc 33.6 g/dl (32-36); Mean Corpuscular Hemoglobin 32.6 pg (26-34); Mean Corpuscular Volume 97.2 fl (80-100); Mean Platelet Volume 9.8 fl (7.4-10.4); Monocytes Absolute Auto 0.5 K/mm3 (0.1-0.6); Monocytes Percent Auto 7.6 % (2.6-8.5); Neutrophils Absolute Auto 3.7 K/mm3 (1.3-6.7); Neutrophils Percent Auto 58.9 % (45.5-73.1); Platelet Count Result 205 k/mm3 (150-375); Red Blood Count 4.72 M/mm3 (4.2-5.4); Red Cell Distribution Width 12.9 % (11.5-14.5); White Blood Count 6.3 K/mm3 (4.5-10.0)
[2023-11-09 06:58] LABS: INR 0.9; Prothrombin Time 12.8 Seconds (11.1-14.7)
[2023-11-09 07:00] LABS: Partial Thromboplastin Time 27.2 Seconds (22.3-36.8)
--- NOTE | 2023-11-09 07:33 | ED.CHESTPAIN ---
HPI - Chest Pain General Chief Complaint: Chest Pain Stated Complaint: chest heaviness Time Seen by Provider: 11/09/23 06:54 History of Present Illness HPI narrative: 78-year-old female presenting to the emergency department for evaluation of heart palpitations and chest pain. On October 16 patient had a pacemaker placed at [facility]. Patient has had the rate increased from 70 to 80 then 80-85 recently. Patient states last night she woke up having left-sided jaw pain and felt her heart was racing. Patient did not measure her heart rate at this time. Patient states symptoms lasted about 20 minutes began to improve. Arrival emergency department patient states she still has some chest tightness but denies any rapid heart rate. Related Data Home Medications Medication Instructions Recorded Confirmed acetaminophen 650 mg 650 mg PO Q12H 08/06/19 11/02/23 tablet,extended release (Tylenol Arthritis Pain) calcium carbonate 600 mg PO DAILY 01/05/21 11/02/23 einbqzfdqczq-ggvnponp-indact 1 tablet PO DAILY 05/30/23 11/02/23 tablet (Multivitamin 50 Plus tablet) metoprolol succinate 25 mg 25 mg PO DAILY 09/19/23 11/02/23 tablet,extended release 24 hr Allergies Allergy/AdvReac Type Severity Reaction Status Date / Time escitalopram [Lexapro] Allergy Intermediate Diarrhea Verified 11/09/23 06:45 Penicillins Allergy Intermediate Rash Verified 11/09/23 06:45 atorvastatin AdvReac Intermediate Muscle Pain Verified 11/09/23 06:45 Review of Systems Review of Systems: All systems reviewed & are unremarkable except as noted in HPI and below PMFSH Past Medical History Medical History (Updated 11/09/23 @ 11:32 by Cong Mohamud MD) Dyslipidemia KELLI (generalized anxiety disorder) Hypersomnia Hypertension Overweight 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 SVT (supraventricular tachycardia) White coat syndrome with hypertension Surgical History Surgical History H/O cardiac radiofrequency ablation History of bilateral knee replacement History of cholecystectomy History of eye surgery History of hysterectomy Family History Family History Father Acute myocardial infarction Family history of arthritis Sibling Family history of arthritis Acute myocardial infarction Lung cancer Social History Social History Smoking status: Never smoker Alcohol intake: never Substance use: never Substance use type: does not use Do You Feel Safe in your Home?: Yes Lack of Transportation: No Lack of Food: Never True Current Housing: I Have Housing Concerned About Future Housing: No Difficulty Paying Gas/Electric Bills: No Difficulty Paying for Meds: No Currently Unemployed: No Education: Trade/Vocational Certificate Difficulty w/ Childcare or Family Care: No Living arrangements: with family Additional living arrangements comments: LIVES AT HOME W/ , ED. 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 HEAD: normocephalic, atraumatic. EYES: PERRLA/EOMI, conjunctivae clear. NOSE: Normal no drainage EARS:TMS clear with good light reflex. THROAT: Pharynx clear, no exudate. NECK: Supple. No adenopathy, no masses. RESPIRATORY: Airway patent, respirations nonlabored. Clear to auscultation bilaterally, no rales, rhonchi, wheezing. CARDIOVASCULAR: Regular rate and rhythm without murmurs rubs or gallops. ABDOMINAL: Soft, nontender, nondistended, normal bowel sounds MUSCULOSKELETAL: Moves all extremities. Strength/ROM intact, No
[2023-11-09 07:50] LABS: Alanine Aminotransferase 19 U/L (6-35); Albumin Level 4.2 g/dL (3.5-5.1); Alkaline Phosphatase 77 U/L (38-126); Anion Gap 9 mmol/L (4-12); Aspartate Amino Transferase 25 U/L (14-36); Bilirubin,Total 1.2 mg/dL (0.2-1.3); Blood Urea Nitrogen 13 mg/dL (7-17); Calcium 9.6 mg/dL (8.4-10.2); Carbon Dioxide 26 mmol/L (22-30); Chloride 102 mmol/L (98-107); Estimated CRCL calculation 64 ml/min; Estimated Glomerular Filt Rate > 60; Glucose 108 mg/dL (65-110); Lipase 108 U/L (23-300); Potassium 3.8 mmol/L (3.4-5.0); Sodium 137 mmol/L (137-145)
[2023-11-09 08:00] LABS: Troponin I < 0.012 ng/mL (0.000-0.034)
--- NOTE | 2023-11-09 08:03 | ECG_ITS ---
Test Date: 2023-11-09 08:07:20 Measurements Intervals [place] Rate: 94 P: 0 ND: 0 QRS: 0 QRSD: 74 T: 7 QT: 348 QTc: 436 Interpretive Statements ELECTRONIC ATRIAL PACEMAKER CHANGES TO ECTOPIC ATRIAL RHYTHM WITH PREMATURE ATRIAL COMPLEX ELECTRONIC VENTRICULAR PACEMAKER WITH INHIBITION ABNORMAL SENSING OF ELECTRONIC ATRIAL PACEMAKER LOW QRS VOLTAGE IN PRECORDIAL LEADS CANNOT R/O SEPTAL INFARCT, AGE INDETERMINATE BORDERLINE ST-T WAVE ABNORMALITY- ANTERIOR LEADS BASELINE ARTIFACT- I, II, III, AVR, AVL, AVF ABNORMAL ECG Compared to ECG 11/09/2023 06:43:32 ABNORMAL ATRIAL PACEMAKER SENSING Electronically Signed On 11-09-2023 08:27:52 CDT by Edd Hardin D.O.
--- NOTE | 2023-11-09 09:59 | ECG_ITS ---
Test Date: 2023-11-09 10:03:55 Measurements Intervals [place] Rate: 89 P: 27 MS: 225 QRS: 1 QRSD: 74 T: 7 QT: 351 QTc: 428 Interpretive Statements ELECTRONIC ATRIAL PACEMAKER WITH INHIBITION ATRIAL PREMATURE COMPLEXES ABNORMAL SENSING OF ELECTRONIC ATRIAL PACEMAKER LOW QRS VOLTAGE IN PRECORDIAL LEADS CANNOT R/O SEPTAL INFARCT, AGE INDETERMINATE CONSIDER INFERIOR INFARCT, AGE INDETERMINATE BORDERLINE ST-T WAVE ABNORMALITY- ANTERIOR LEADS ABNORMAL ECG Compared to ECG 11/09/2023 08:07:20 NO SIGNIFICANT CHANGE Electronically Signed On 11-09-2023 10:25:25 CDT by Edd Hardin D.O.
[2023-11-09 10:54] LABS: Troponin I < 0.012 ng/mL (0.000-0.034)
== END 2023-11-09 12:01 | disposition home or self-care (01) ==
PROVIDERS: Student in an Organized Health Care Education/Training Program; Emergency Provider Emergency Medicine; PCP Family Medicine
DX: R07.9 Chest pain, unspecified (principal); R00.2 Palpitations; E78.5 Hyperlipidemia, unspecified; I10 Essential (primary) hypertension; F41.1 Generalized anxiety disorder
CPT/HCPCS: 36415; 71046; 80053; 83690; 84484; 85025; 85610; 85730; 93005; 99284

== ENCOUNTER 2024-01-07 12:34 | Outpatient (CLI) | payer MEDICARE, SELFPAY ==
--- NOTE | 2024-01-07 | ECG_ITS ---
Test Date: 2024-01-07 12:55:30 Measurements Intervals [place] Rate: 82 P: 130 AR: 334 QRS: 26 QRSD: 100 T: 114 QT: 385 QTc: 451 Interpretive Statements ELECTRONIC ATRIAL PACEMAKER FREQUENT ATRIAL PREMATURE COMPLEXES LOW QRS VOLTAGE IN PRECORDIAL LEADS DELAYED PRECORDIAL R/S TRANSITION CONSIDER INFERIOR INFARCT, AGE INDETERMINATE ST-T WAVE ABNORMALITY IN HIGH LATERAL LEADS- CONSIDE RISCHEMIA BASELINE ARTIFACT- I, II, III, AVR, AVL, AVF ABNORMAL ECG Compared to ECG 11/09/2023 10:03:55 ST-T WAVE ABNORMALITY, CONSIDER ISCHEMIA NOW PRESENT Electronically Signed On 01-07-2024 12:59:41 CDT by Edd Hardin D.O.
== END 2024-01-07 12:35 | disposition home or self-care (01) ==
PROVIDERS: PCP Family Medicine
DX: I48.91 Unspecified atrial fibrillation (principal); R94.31 Abnormal electrocardiogram [ECG] [EKG]
CPT/HCPCS: 93005

== ENCOUNTER 2024-03-05 08:37 | Outpatient (CLI) | payer MEDICARE, SELFPAY ==
--- NOTE | ~2024-03-05 | XR_ITS ---
Right wrist Technique: PA, oblique, lateral, and ulnar deviation views were obtained. Clinical History: Osteoarthritis, pain Findings: No acute fracture or dislocation is seen. There is severe degenerative change of the first CMC joint. Soft tissues are unremarkable. Impression: Severe degenerative change of the first CMC joint. Reviewed, dictated and finalized at location . AR FUSER Impression: Severe degenerative change of the first CMC joint.
== END 2024-03-05 08:38 | disposition home or self-care (01) ==
LOC: CHSIMG 08:39
PROVIDERS: PCP Family Medicine; Visit Provider Family Medicine
DX: M19.031 Primary osteoarthritis, right wrist (principal)
CPT/HCPCS: 73110

== ENCOUNTER 2024-04-04 08:47 | Outpatient (CLI) | payer MEDICARE, SELFPAY ==
[2024-04-04 09:02] LABS: Add Urine Microscopic? YES; Appearance Urine Cloudy (Clear); Bilirubin Urine Negative (Negative); Blood Urine 3+ (Negative); Color Urine Light Yellow (Yellow); Glucose Urine UA Negative (Negative); Ketones Urine Negative (Negative); Leukocyte Esterase Ur 3+ (Negative); Nitrate Urine Negative (Negative); Protein Urine 1+ (Negative); Specific Grav Ur 1.015 (1.010-1.020)
[2024-04-04 09:07] LABS: Bacteria Urine 2+ /hpf; Squamous Epithelial Cell Urine Few /hpf (Few); WBC Urine >75 /hpf (0-3)
== END 2024-04-04 08:48 | disposition home or self-care (01) ==
LOC: CHSLAB 08:48
PROVIDERS: PCP Family Medicine; Visit Provider Family Medicine
DX: R30.0 Dysuria (principal)
CPT/HCPCS: 81001; 87086; 87186

== ENCOUNTER 2024-04-23 15:51 | Outpatient (CLI) | payer MEDICARE, SELFPAY ==
[2024-04-23 17:39] LABS: Add Urine Microscopic? YES; Appearance Urine Clear (Clear); Bilirubin Urine Negative (Negative); Blood Urine Negative (Negative); Color Urine Light Yellow (Yellow); Glucose Urine UA Negative (Negative); Ketones Urine Negative (Negative); Leukocyte Esterase Ur 1+ (Negative); Nitrate Urine Negative (Negative); Protein Urine Negative (Negative); Specific Grav Ur <= 1.005 (1.010-1.020); Urobilinogen Urine 0.2 mg/dL (0.2-1.0); pH Urine 6.5 (5.0-8.0)
[2024-04-23 17:52] LABS: RBC Urine 0-2 /hpf (0-2); Squamous Epithelial Cell Urine Rare /hpf (Few); WBC Urine 0-3 /hpf (0-3)
[2024-04-23 17:53] LABS: Bacteria Urine Trace /hpf
== END 2024-04-23 15:52 | disposition home or self-care (01) ==
PROVIDERS: PCP Family Medicine; Visit Provider Family Medicine
DX: N39.0 Urinary tract infection, site not specified (principal)
CPT/HCPCS: 81001

== ENCOUNTER 2024-12-13 10:21 | Emergency (ER) | payer MEDICARE, SELFPAY ==
--- OUTSIDE RECORDS SUMMARY | 2020-12-09 06:30 | XMS_ITS | Continuity of Care Document ---
Author Organization [facility] Address [address] [place] [address] Phone Care Team Providers Care Environmental Health Safety Engineer Name Role Phone Roberto Bower MD Unavailable [...] Diagnoses Date Provider Providers Copied on Encounter [facility], [address], [place], [place], [address], [place] tel:[phone] [facility] No Information Sathish Mejia. [address], [place], [place], [address], [place]. tel:[phone] Referring Provider: Trent Wilson, [address], [place], [address]. tel:[phone] [facility], [address], [place], [place], [address], tel:[phone] [facility] No Information Sathish Mejia. [address], [place], [place], [address], . tel:[phone] Referring Provider: Trent Wilson, [address], [place], [address]. tel:[phone] [facility], [address], [place], [place], [address], tel:[phone] [facility] No Information Adrianne Don. [address], [place], [place], [address], . tel:[phone] Referring Provider: [address], [place], [address]. tel:[phone] [facility], [address], [place], [place], [address], tel:[phone] [facility] No Information Liliya Mejia. [address], [place], [place], [address], . tel:[phone] Referring Provider: [address], [place], [address]. tel:[phone] Family History Family Member Type Diagnosis Age At Onset No Information Payers Payer name Insurance type Covered libertarian ID Authoriza tilanny(s) MEDICARE MB [id number] [facility] INDIVIDUAL ASSURANCE CO CI [id number] Social History Type Description Quantity Date Captured [...]
--- NOTE | ~2024-12-13 | XR_ITS ---
EXAMINATION: XR chest 2V, 12/13/2024 11:32 CDT HISTORY: SOA COMPARISON: No comparisons available. Technique: 2 views obtained. Findings: Mild pulmonary venous congestion. No pneumothorax. Moderate cardiomegaly. Mediastinal and hilar contours are within normal limits. Bony thorax no acute abnormality. Left pacemaker. Impression: CHF Reviewed, dictated and finalized at location A. Impression: CHF
[2024-12-13 10:28] VITALS: BP 96/67; PULSE 84; RESP 22; TEMP 36.4; O2SAT 95
[2024-12-13 10:35] VITALS: BP 111/77
--- OUTSIDE RECORDS SUMMARY | 2024-12-13 10:42 | XMS_ITS | Clinical Summary ---
Author Organization [facility] Address [address] [place] [address] Care Team Providers Care Associate Media Planner Name Role Phone Sheila Saul Maguire DO Primary Care Provider Ajith Krueger MD Unavailable [phone] Allergies Active Allergy Reactions Criticality Noted Date Comments Atorvastatin Palpitations High 05/12/2016 Citalopram Diarrhea Low 03/22/2022 Penicillins Rash Medium 08/19/2018 Medications calcium carbonate-vitam in D3 1,500 mg (600mg elemental) -800 unit per tablet Take 1 tablet by mouth daily Active pravastatin (PRAVACHOL) 20 mg tablet Take 1 tablet (20 mg total) by mouth daily Active losartan (COZAAR) 50 mg tablet Take 1 tablet (50 mg total) by mouth 2 (two) times a day 2 Active multivitamin-Ca -iron-minerals tablet Take by mouth Active acetaminophen ER (TYLENOL) 650 mg 8 hr tablet Take 1-2 tablets (650-1,300 mg total) by mouth nightly Active amLODIPine (NORVASC) 5 mg tablet Take 1 tablet (5 mg total) by mouth daily 3 Active LORazepam (ATIVAN) 1 mg tablet TAKE 1 TABLET BY MOUTH ONCE DAILY NEEDED FOR ANXIETY 30 tablet 3 Active Additional Information Patient taking differently: 0.5 mg, Reported on 10/16/2023 HYDROcodone-lidya taminophen (NORCO) 5-325 mg per tablet Take 0.5 tablets by mouth every 8 (eight) hours as needed for pain 4 Active apixaban (ELIQUIS) 5 mg tablet Take 1 tablet (5 mg total) by mouth 2 (two) times a day 4 Active flecainide (TAMBOCOR) 100 mg tablet Take 1 tablet (100 mg total) by mouth 2 (two) times a day 180 tablet 3 4 01/11/20 25 Active metoprolol XL (TOPROL-XL) 50 mg extended release tablet Take 1 tablet (50 mg total) by mouth 2 (two) times a day 180 tablet 3 5 05/15/19 26 Active Active Problems Problem Noted Date Diagnosed Date Junctional cardiac arrhythmia 10/29/2023 Assessment & Plan (10/29/2023 4:10 PM CDT): - symptomatic junctional rhythm - patient's junctional rhythm as faster than her lower rate limit and causing symptoms of weakness, dizziness / lightheadedness, fatigue, anxiety - remains compliant on apixaban and metoprolol - increase metoprolol to 100 mg daily - Device interrogation today shows one-to-one junctional rhythm upon presentation. Prior to this, she was found to have episodes of accelerated junctional rhythm with retrograde. - increase lower rate limit to 80 beats per minute - Obtain echo, we will need to monitor yearly for pacemaker induced dependent cardiomyopathy - keep scheduled follow up with the device clinic in 1 week for evaluation of rhythm ICD (implantable cardioverter-defibrillator) in place 10/29/2023 Cardiac pacemaker in situ 10/29/2023 Assessment & Plan (05/15/2024 4:46 PM BUSINESS INFORMATION MANAGER): Sinus node dysfunction, status post pacemaker. The patient's device was interrogated and found to be functioning appropriately. No substantial changes to programming were made. The patient is enrolled in the [facility], and we will continue to follow with remote monitoring when possible, and in-office device checks when necessary. Assessment & Plan (10/29/2023 4:13 PM CDT): - status post dual-chamber pacemaker placement with Dr. Krueger - Device interrogation today shows 57% RA pacing and 2.7% RV pacing. - Ten years BOB. - Atrial arrhythmia burden remains low at less than 1%. Patient was found to be in a one-to-one junctional rhythm upon presentation. - The patient's device was interrogated today and found to be functioning appropriately. No significant programming changes were made at this time. The patient will continue to be followed through the [facility] remotely and with in office device interrogations as needed. Sinoatrial node dysfunction 09/12/2023 Atrial flutter with rapid ventricular response 0 08/20/2023 Shortness of breath 08/20/2023 Palpitations 08/20/2023 S/P ablation of atrial fibrillation 10/08/2022 Anticoagulation management encounter 10/08/2022 Assessment & Plan (10/29/2023 3:55 PM CDT): - Remains compliant on apixaban - denies any issues with bruising - recommend continued therapy for thromboprophylaxis residential current use of antiarrhythmic drug Atrial fibrillation 03/22/2022 Overview (03/22/2022): Added automatically from request for surgery [id number] Assessment & Plan (05/15/2024 4:45 PM BUSINESS INFORMATION MANAGER): The patient is 1-1/2 years status post ablation for atrial fibrillation, doing well. Maintaining sinus rhythm with flecainide. 12-lead ECG today does not demonstrate any changes that would prohibit continued use of flecainide. We will continue the patient on the same dose and schedule. As long as the patient continues on this medication, an ECG should be performed at least every 6 months to monitor for toxicity. The patient has a [id number] score of 4. I have therefore recommended continued anticoagulation for thromboprophylaxis. The patient will follow-up with me in 6 months for an office visit and twelve- lead ECG. Assessment & Plan (10/29/2023 4:06 PM CDT): - status post radiofrequency catheter ablation with Dr. Krueger (2021) - remains compliant on metoprolol and apixaban - atrial arrhythmia burden remains low at less than 1% on device interrogation today Assessment & Plan (05/03/2023 8:44 AM BUSINESS INFORMATION MANAGER): The patient is six-month status post ablation for atrial fibrillation, doing well. Maintaining sinus rhythm with low-dose flecainide. At this point, we will discontinue flecainide. The patient has a TOT6XU0-EAMt score of 4. I have therefore recommended continued anticoagulation for thromboprophylaxis. The patient will follow-up with me in 6 months for an office visit and twelve- lead ECG. Assessment & Plan (12/16/2022 3:55 PM CDT): The patient is 1 month status post ablation for atrial fibrillation, doing well. Maintaining sinus rhythm with flecainide. At this point, we will decrease flecainide to 50 mg (half the current dose). The patient has a KFS1IJ7-ECVb score of 3. I have therefore recommended continued anticoagulation for thromboprophylaxis. The patient will follow-up with me in 6 months for an office visit and twelve- lead ECG. Assessment & Plan (10/08/2022 1:59 PM CDT): The patient has symptomatic paroxysmal atrial fibrillation, recurrent post ablation that has been resistant to antiarrhythmic drug therapy with flecainide. As an alternative, we discussed catheter ablation. We discussed the rationale for atrial fibrillation ablation, including the steps involved in ablation. I detailed the risks of the procedure, including vascular injury/hematoma, myocardial injury/perforation, stroke, myocardial infarction, pulmonary vein stenosis, thermal esophageal injury, phrenic nerve injury and . I estimated a 70% chance of freedom from long-term atrial arrhythmia, and the patient understands that occasionally a second procedure is necessary. It will be my intention to discontinue antiarrhythmic drug therapy following ablation. However, as long as the patient continues on flecainide, an ECG should be performed at least every 6 months to monitor for toxicity. The patient has a NUK6CG1-ABGi score of 3. I have therefore recommended continued anticoagulation for thromboprophylaxis. My office will make the appropriate arrangements. From: April, Gunner LS, Irasema JS, Anabelle H, Daniel RODOLFO, Iris JE, Melanie JOHN, Francisco PT, Breanna OH, [place], Guillermo KT, Andreia RL, Dawood WG, Denny PJ, Stacia CM, Monalisa CW. 2014 AHA/ACC/HRS guideline for the management of patients with atrial fibrillation: a report of the [place] [employer]/[place] [employer] Association Task Force on Practice Guidelines and the Heart Rhythm Society. J Am Sabra Cardiol 2014. 6.3. AF Catheter Ablation to Maintain Sinus Rhythm: Recommendations Class I AF catheter ablation is useful for symptomatic paroxysmal AF refractory or intolerant to at least 1 class I or III antiarrhythmic medication when a rhythm control strategy is desired ([phone]). (Level of Evidence: A) Assessment & Plan (09/01/2022 7:00 AM CDT): The patient is 6 months status post ablation for atrial fibrillation, doing well. Maintaining sinus rhythm with flecainide. At this point, we will plan on reduction of flecainide to 100 mg twice daily. If she experiences recurrence of atrial fibrillation, repeat PVI is a consideration (as is a return to the higher dose of flecainide) The patient has a WIL6VZ1-BQFb score of 4. I have therefore recommended continued anticoagulation for thromboprophylaxis. The patient will follow-up with me in 3 months for an office visit and twelve- lead ECG. Encounters Date Type Department Care Team Description 09/29/2024 8:35 AM CDT Ancillary Procedure [facility] [address] [address] Cardiac pacemaker in situ (Primary Dx); Sinoatrial node dysfunction (HCC) from Last 3 Months Immunizations Immunization Administration Dates Next Due Influenza, Quadrivalent, Spl it, Intramuscular 12/16/2015 Influenza, Trivalent, High D ose, Split, Preservative Free, Intramuscular 12/26/2019,12/17/2018,12/31/2017 Pneumococcal Polysaccharide PPV23 12/16/2015 Surgical History Surgery Date Site/Laterality Comments CHOLECYSTECTOMY HYSTERECTOMY TOTAL KNEE ARTHROPLASTY Bilateral Medical History Medical History Date Comments GERD (gastroesophageal reflux disease) Hypertension Social History Tobacco Use Types Packs/Day Years Used Date Smoking Tobacco: Never Tobacco Cessation:Counseling Given: Not Answered AUDIT-C Answer Date Recorded Frequency of Alcohol Consumption Not on file 03/27/2022 Q2: How many drinks containi ng alcohol do you have on a typical day when you are drinking? Patient does not drink 2 Q3: How often do you have si x or more drinks on one occasion? Never 03/27/2022 Personal Safety Answer Date Recorded Have you ever been in or are you currently in a harmful physical or emotional relationship or is someone making you feel afraid or unsafe? Denies 10/17/2023 Comments Unknown Sex and Gender Information Value Date Recorded Sex Assigned at Not on file Legal Sex Female 4:58 PM CDT Gender Identity Not on file Sexual Orientation Not on file Obstetrics History Last Filed Vital Signs Vital Sign Reading Time Taken Comments Blood Pressure 122/76 05/15/2024 1:40 PM BUSINESS INFORMATION MANAGER Pulse 82 05/15/2024 1:40 PM BUSINESS INFORMATION MANAGER Temperature 36.3 C (97.4 F) 11/08/2022 2:08 PM CDT Respiratory Rate 19 10/17/2023 3:45 PM CDT Oxygen Saturation 97% 10/29/2023 1:21 PM CDT Inhaled Oxygen Concentration - - Weight 93.4 kg (206 lb) 05/15/2024 1:40 PM BUSINESS INFORMATION MANAGER Height 160 cm (5' 3) 05/15/2024 1:40 PM BUSINESS INFORMATION MANAGER Body Mass Index 36.49 05/15/2024 1:40 PM BUSINESS INFORMATION MANAGER Plan of Treatment Health Maintenance Due Date Last Done Comments Depression Screening 1945 Hepatitis C Screening 1945 Osteoporosis Screening-Bone Density Scan 1945 DTaP/Tdap/Td Vaccine (1 - Tdap) 1958 Hepatitis B Screening 1965 Zoster Vaccine (1 of 2) 1997 Well Visit 65+ 2012 Pneumococcal vaccine 65+ (2 of 2 - PCV) 12/15/2016 12/16/2015 Fall Risk Assessment 08/20/2024 08/21/2023 Influenza Vaccine (#1) 2024 0, 12/17/2018, 12/31/2017, Additional history exists Medical Devices Implanted Type Area Burlap Roll Coverer Device Identifier Shelf Expiration Date Model / Serial / Lot [employer] Vascade Mvp 6-12fr Venous Closure [id number] - [id number] - [id number] Implanted:Qty : 1 on 11/08/2022 by Ajith Krueger MD at [facility] Collagen [employer] 07/27/2024 800-612C- 10U / [id number] / [id number] [employer] Vascade Mvp 6-12fr Venous Closure [id number] - [id number] - [id number] Implanted:Qty : 1 on 11/08/2022 by Ajith Krueger MD at [facility] [employer]agen [employer] 08/09/2024 800-612C- 10U / [id number] [id number] / [id number] [employer] Vascade Mvp 6-12fr Venous Closure [id number] - [id number] - [id number] Implanted:Qty : 1 on 11/08/2022 by Ajith Krueger MD at [facility] Collagen [employer] 08/09/2024 800-612C- 10U / [id number] [id number] / [id number] [employer] Vascade Mvp 6-12fr Venous Closure [id number] - [id number] - [id number] Implanted:Qty : 1 on 11/08/2022 by Ajith Krueger MD at [facility] [employer] 08/09/2024 800-612C- 10U / [id number] [id number] / [id number] [employer] Active Fixation Steroid Eluting Latex Free Sterile Right Atrium Ventricle Ultipace 52cm [id number]/52 - [id number] - [id number] Implanted:Qty : 1 on 10/17/2023 by Ajith Krueger MD at [facility] Lead [employer] [id number] 06/13/2026 LPA12 31/5 2 / [id number] / [employer] Active Fixation Steroid Eluting Latex Free Sterile Right Atrium Ventricle Ultipace 46cm [id number] - [id number] - [id number] Implanted:Qty : 1 on 10/17/2023 by Ajith Krueger MD at [facility] Lead [employer] [id number] 04/15/2026 LPA12 6 / [id number] / [employer] Assurity Mri [id number] Chamber Is-1 Connector Thk6mm Pacemaker [id number] - [id number] - [id number] Implanted:Qty : 1 on 10/17/2023 by Ajith Krueger MD at [facility] Pacemaker [employer] [id number] 02/13/2025 [id number] / [id number] / [employer] Device Clsr Perclose Prostyle Sut-Mediatd Closure-Repai r Sys 91656-13 - [id number] - [id number] Implanted:Qty : 1 on 03/27/2022 by Chance Cuellar MD at [facility] [employer] 11/14/2023 [id number] / [id number] / [id number] [employer] Device Clsr Perclose Prostyle Sut-Mediatd Closure-Repai r Sys 41416-75 - [id number] - [id number] Implanted:Qty : 1 on 03/27/2022 by Chance Cuellar MD at [facility] [employer] 01/14/2024 [id number] / [id number] / [id number] [employer] Device Clsr Perclose Prostyle Sut-Mediatd Closure-Repai r Sys 45377-81 - [id number] - [id number] Implanted:Qty : 1 on 03/27/2022 by Chance Cuellar MD at [facility] [employer] 12/15/2023 [id number] / [id number] / [id number] Procedures Procedure Name Priority Date/Time Associated Diagnosis Comments DEVICE CHECK - REMOTE Routine 09/29/2024 10:17 AM CDT Sinoatrial node dysfunction (HCC) from Last 3 Months Results * DEVICE CHECK - REMOTE (09/29/2024 10:17 AM CDT) Anatomical Region Laterality Modality Other Narrative 09/30/2024 11:16 AM CDT Table formatting from the original result was not included. PM CHECK (REMOTE) Patient ID: Klarissa Catalan is a 79 y.o. female This patient received a Blakely Pacemaker. They had a routine remote transmission on 09/29/2024. Device implant indications: Tachy-amari syndrome Interrogation of the patient's device demonstrates the following: Presenting EGM: A sense V pacing @ 80 bpm Original Device Settings Right Atrium Right Ventricle Sensitivity (mV) Auto Auto Pacing Outputs 2.25 V @ 0.4 ms 2.0 V @ 0.4 ms Testing Measurements Right Atrium Right Ventricle Sensitivity (mV) 1.5 mV 9.6 mV Impedence (Ohms) 510 ohms 630 ohms Pace Threshold 1.25 V @ 0.4 ms Not done Pacing % 82 % 87 % Battery Status: 7.4 years to BOB Episodes last 90 days/Comments: AF [place] 0.1 %, longest duration 14 sec. NORMAL DEVICE FUNCTION PROGRAMMED MEDICATIONS: Anti-coagulant(s): Eliquis 5 mg twice daily Anti-arrhythmic(s): Norvasc 5 mg daily, flecainide 100 mg twice daily, Toprol 50 mg twice daily PLAN: 1) Blakely Pacemaker evaluation 2) Blakely remote transmission scheduled in 3 months. 3) Programming appropriate for device measurements Edwina Hairston RN Ajith Krueger MD [facility] PRO CEDURES Final Result from Last 3 Months Insurance [facility] Address: [address] [address] [place] [address] [place] [address] [facility] Address: [address] [address] [place] [address] [place] [address] Care Teams Associate Media Planner Relationship Specialty Start Date End Date Saul Sosa DO [address] [place] [address] PCP - General Family Medicine 05/02/22 Ajith Krueger MD [address] [address] Consulting Physician Cardiology 05/02/22
[2024-12-13 11:05] LABS: Hematocrit 44.1 % (37.0-47.0); Hemoglobin 14.7 g/dL (12.0-15.0); Immature Granulocyte Percent A 0.3 % (0-0.5); Lymphocytes Absolute Auto 1.15 K/mm3 (0.9-3.2); Mean Corpuscular HGB Conc 33.3 g/dl (32-36); Mean Corpuscular Hemoglobin 32.2 pg (26-34); Mean Corpuscular Volume 96.7 fl (80-100); Nucleated Red Blood Cells Absolute Auto 0.000 K/mm3 (0.0-0.012); Nucleated Red Blood Cells Perc 0.0 % (0.0-0.2); Platelet Count Result 179 k/mm3 (150-375); Red Blood Count 4.56 M/mm3 (4.2-5.4); White Blood Count 6.4 K/mm3 (4.5-10.0)
[2024-12-13 11:18] LABS: INR 1.8; Prothrombin Time 21.1 Seconds (11.1-14.7)
[2024-12-13 11:19] LABS: Partial Thromboplastin Time 38.3 Seconds (22.3-36.8)
[2024-12-13 11:20] LABS: Alanine Aminotransferase 29 U/L (6-35); Albumin Level 4.0 g/dL (3.5-5.1); Alkaline Phosphatase 63 U/L (38-126); Anion Gap 8 mmol/L (4-12); Aspartate Amino Transferase 42 U/L (14-36); Bilirubin,Total 3.4 mg/dL (0.2-1.3); Blood Urea Nitrogen 17 mg/dL (7-17); Calcium 9.7 mg/dL (8.4-10.2); Carbon Dioxide 25 mmol/L (22-30); Chloride 97 mmol/L (98-107); Estimated CRCL calculation 47 ml/min; Estimated Glomerular Filt Rate 56; Glucose 118 mg/dL (65-110); Potassium 3.9 mmol/L (3.4-5.0); Sodium 130 mmol/L (137-145); Total Protein 6.5 g/dL (6.3-8.2)
[2024-12-13 11:28] LABS: NT Pro B Type Natriuretic Pept 5490 pg/mL (19.9-100)
--- NOTE | 2024-12-13 12:21 | ED.GENADULT ---
HPI - General Adult General Chief complaint: Extremity Problem,Nontraumatic Stated complaint: feet swelling Time Seen by Provider: 12/13/24 10:24 History of Present Illness HPI narrative: Patient is a 79-year-old female who presents the ER with swelling of the legs. Ongoing for 2 days. No new exertional shortness of breath orthopnea. No chest pain. No cough. Was told that it could be a side effect of her amlodipine. Improves with elevation legs. She has been poorly mobile recently due to some chronic neck issues. Related Data Home Medications ?Medication ?Instructions ?Recorded ?Confirmed ?Last Taken ?Type acetaminophen 650 mg 650 mg PO Q12H 08/06/19 11/28/24 08/04/20 History tablet,extended release (Tylenol Arthritis Pain) calcium carbonate 600 mg PO DAILY 01/05/21 11/28/24 01/10/21 History lxekylnbkqts-eatmhjoo-zisxak 1 tablet PO DAILY 05/30/23 11/28/24 Unknown History tablet (Multivitamin 50 Plus tablet) metoprolol succinate 50 mg capsule 50 mg PO DAILY 12/14/23 11/28/24 Unknown History sprinkle, ext. release 24 hr Allergies Allergy/AdvReac Type Severity Reaction Status Date / Time escitalopram (Lexapro) Allergy Intermediate Diarrhea Verified 12/13/24 10:36 Penicillins Allergy Intermediate Rash Verified 12/13/24 10:36 atorvastatin AdvReac Intermediate Muscle Pain Verified 12/13/24 10:36 Review of Systems Review of Systems: All systems reviewed & are unremarkable except as noted in HPI and below Constitutional: Constitutional: Reports no additional constitutional complaints Cardiovascular: Cardiovascular: Reports no additional cardiovascular complaints Respiratory: Respiratory: Reports no additional respiratory complaints Musculoskeletal: Musculoskeletal: Reports no additional musculoskeletal complaints [facility] Past Medical History Medical History SVT (supraventricular tachycardia) White coat syndrome with hypertension 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 KELLI (generalized anxiety disorder) Overweight Hypersomnia Dyslipidemia Hypertension Surgical History Surgical History History of eye surgery H/O cardiac radiofrequency ablation History of bilateral knee replacement History of cholecystectomy History of hysterectomy Family History Family History Father Acute myocardial infarction Family history of arthritis Sibling Family history of arthritis Acute myocardial infarction Lung cancer Social History Social History Smoking status: Never smoker Alcohol intake: never Substance use: never Substance use type: does not use Do You Feel Safe in your Home?: Yes Lack of Transportation: No Lack of Food: Never True Current Housing: I Have Housing Concerned About Future Housing: No Difficulty Paying Gas/Electric Bills: No Difficulty Paying for Meds: No Currently Unemployed: No Education: Trade/Vocational Certificate Difficulty w/ Childcare or Family Care: No Living arrangements: with family Additional living arrangements comments: LIVES AT HOME W/ , ED. 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 HEAD: Normocephalic, atraumatic. ENT: Mucous membranes moist. CHEST: Clear to auscultation. No respiratory distress. HEART: Regular rate and rhythm. Normal peripheral pulses. ABDOMEN: Soft, nontender, nondistended, normal active bowel sounds. EXTREMITIES: Normal range of motion. 1+ edema. SKIN: Warm, dry, no rash. NEURO: Alert and oriented x3. PSYCH: Normal mood and affect. Course Course Emergency Course: Discussed lab/imaging/vitals with patient's pull socket assembler Dr. Hardin. Will start on lasix 20mg, f/u in clinic this week. Pt educated on dx and tx plan. Feels comfortably with d/c. Vital Signs Vital signs: Vital Signs Temperature 97.6 F 12/13/24 10:28 Pulse Rate 84 12/13/24 10:28 Respiratory Rate 22 H 12/13/24 10:28 Blood Pressure 96/67 L 12/13/24 10:28 Pulse Oximetry 95 12/13/24 10:28 Oxygen Delivery Room Air 12/13/24 10:28 Temperature 97.6 F 12/13/24 10:28 Pulse Rate 84 12/13/24 10:28 Respiratory Rate 22 H 12/13/24 10:28 Blood Pressure 111/77 08/30/25 10:35 Pulse Oximetry 95 12/13/24 10:28 Oxygen Delivery Room Air 12/13/24 10:28 Medical Decision Making Vital Signs Vital Signs: Vital Signs Temperature 97.6 F 12/13/24 10:28 Pulse Rate 84 12/13/24 10:28 Respiratory Rate 22 H 12/13/24 10:28 Blood Pressure 96/67 L 12/13/24 10:28 Pulse Oximetry 95 12/13/24 10:28 Oxygen Delivery Room Air 12/13/24 10:28 Temperature 97.6 F 12/13/24 10:28 Pulse Rate 84 12/13/24 10:28 Respiratory Rate 22 H 12/13/24 10:28 Blood Pressure 111/77 12/13/24 10:35 Pulse Oximetry 95 12/13/24 10:28 Oxygen Delivery Room Air 12/13/24 10:28 Lab Data 12/13/24 10:52 12/13/24 10:52 Labs: Lab Results 12/13/24 Range/Units 10:52 WBC 6.4 (4.5-10.0) K/mm3 RBC 4.56 (4.2-5.4) M/mm3 Hgb 14.7 (12.0-15.0) g/dL Hct 44.1 (37.0-47.0) % MCV 96.7 (80-100) fl MCH 32.2 (26-34) pg MCHC 33.3 (32-36) g/dl RDW 14.6 H (11.5-14.5) % Plt Count 179 (150-375) k/mm3 MPV 9.6 (7.4-10.4) fl Immature Gran % (Auto) 0.3 (0-0.5) % Neut % (Auto) 72.6 (45.5-73.1) % Lymph % (Auto) 18.0 L (18.3-44.2) % [place] % (Auto) 7.0 (2.6-8.5) % Eos % (Auto) 1.3 (0-4.4) % Baso % (Auto) 0.8 (0.2-1.2) % Lymph # (Auto) 1.15 (0.9-3.2) K/mm3 [place] # (Auto) 0.5 (0.1-0.6) K/mm3 Eos # (Auto) 0.1 (0-0.3) K/mm3 Baso # (Auto) 0.1 (0.0-0.1) K/mm3 Abs Immat Gran (auto) 0.02 (0.00-0.031) K/mm3 Absolute Neuts (auto) 4.7 (1.3-6.7) K/mm3 Absolute Nucleated RBC 0.000 (0.0-0.012) K/mm3 Nucleated RBC % 0.0 (0.0-0.2) % PT 21.1 H (11.1-14.7) Seconds INR 1.8 APTT 38.3 H (22.3-36.8) Seconds Sodium 130 L (137-145) mmol/L Potassium 3.9 (3.4-5.0) mmol/L Chloride 97 L (98-107) mmol/L Carbon Dioxide 25 (22-30) mmol/L Anion Gap 8 (4-12) mmol/L BUN 17 (7-17) mg/dL Creatinine 0.97 (0.7-1.0) mg/dL Estim Creat Clear Calc 47 ml/min Estimated GFR 56 L (59 - ) Glucose 118 H (65-110) mg/dL Calcium 9.7 (8.4-10.2) mg/dL Total Bilirubin 3.4 H (0.2-1.3) mg/dL AST 42 H (14-36) U/L ALT 29 (6-35) U/L Alkaline Phosphatase 63 (38-126) U/L NT-Pro-B Natriuret Pep 5490 H (19.9-100) pg/mL Total Protein 6.5 (6.3-8.2) g/dL Albumin 4.0 (3.5-5.1) g/dL Imaging Data Radiologist's impression: ITS Impressions Chest X-Ray 12/13/24 11:49 Impression: CHF Discharge Plan Discharge Clinical Impression: Congestive heart failure, Leg edema Patient Disposition: Home Condition: Stable Instructions: Heart Failure (ED), Edema (ED) Additional Instructions: Your being started on Lasix 20 mg once a day. Discontinue the medication if you get dizzy with going from sitting to standing, or you lose consciousness. Return the ER if you develop chest pain, fever over 100.4? F, or have additional concerns. Patient Language: Cymraes Prescriptions: New furosemide [Lasix] 20 mg tablet 20 mg PO DAILY Qty: 7 0RF No Action Multivitamin 50 Plus Tablet 1 tablet PO DAILY acetaminophen [Tylenol Arthritis Pain] 650 mg tablet extended release 650 mg PO Q12H calcium carbonate 600 mg calcium (1,500 mg) tablet 600 mg PO DAILY lorazepam 1 mg tablet 1 mg PO DAILY PRN (Reason: anxiety) Qty: 20 0RF hydrocodone-acetaminophen 5-325 mg tablet 1 tablet PO Q8H PRN (Reason: pain) Qty: 20 0RF metoprolol succinate 50 mg capsule,sprinkle,ER 24hr 50 mg PO DAILY Patient Comments: Takes 100 mg am and 50mg PM pravastatin 20 mg tablet See Rx Instructions .ROUTE .COMPLEX Qty: 90 3RF Dose Instruction: TAKE 1 TABLET BY MOUTH AT BEDTIME Rx Instructions: TAKE 1 TABLET BY MOUTH AT BEDTIME Eliquis 5 mg tablet See Rx Instructions .ROUTE .COMPLEX Qty: 180 2RF Dose Instruction: Take 1 tablet by mouth twice daily Rx Instructions: Take 1 tablet by mouth twice daily amlodipine 5 mg tablet See Rx Instructions .ROUTE .COMPLEX Qty: 90 0RF Dose Instruction: Take 1 tablet by mouth once daily Rx Instructions: Take 1 tablet by mouth once daily losartan 50 mg tablet See Rx Instructions .ROUTE .COMPLEX Qty: 180 0RF Dose Instruction: Take 1 tablet by mouth twice daily Rx Instructions: Take 1 tablet by mouth twice daily Follow-up/Referrals: Saul Sosa DO [Primary Care Provider, Family Practice] Edd Hardin DO [Physician, Cardiology] - 1 Week
[2024-12-13 12:40] VITALS: BP 105/57; PULSE 82; RESP 19; O2SAT 97
[2024-12-13] MEDS: FUROSEMIDE INJ 40 MG/4 ML VIAL 20 MG IV PUSH (12:40)
[2024-12-13 12:58] VITALS: BP 103/67; PULSE 78; RESP 20; O2SAT 99
== END 2024-12-13 12:59 | disposition home or self-care (01) ==
PROVIDERS: Emergency Provider Emergency Medicine; PCP Family Medicine
DX: R60.0 Localized edema (principal); I50.9 Heart failure, unspecified; I11.0 Hypertensive heart disease with heart failure; E78.5 Hyperlipidemia, unspecified; Z96.653 Presence of artificial knee joint, bilateral; Z90.710 Acquired absence of both cervix and uterus; Z90.49 Acquired absence of other specified parts of digestive tract; Z79.899 Other long term (current) drug therapy
CPT/HCPCS: 36415; 71046; 80053; 83880; 85025; 85610; 85730; 96374; 99284; J1938

== ENCOUNTER 2025-01-13 15:12 | Outpatient (CLI) | payer MEDICARE, SELFPAY ==
--- OUTSIDE RECORDS SUMMARY | 2020-12-09 06:30 | XMS_ITS | Continuity of Care Document ---
Author Organization [facility] 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 [address], [place], [place], [address], [place]. tel:[phone] Referring Provider: Trent Wilson, [address], [place], [address]. tel:[phone] [facility] [address], [place], [place], [address], tel:[phone] [facility] No Information Sathish Mejia. [address], [place], [place], [address], . tel:[phone] Referring Provider: Trent Wilson, [address], [place], [address]. tel:[phone] [facility] [address], [place], [place], [address], tel:[phone] [facility] No Information Adrianne Don. [address], [place], [place], [address], . tel:[phone] Referring Provider: [address], [place], [address]. tel:[phone] [facility] [address], [place], [place], [address], tel:[phone] [facility] No Information Liliya Mejia. [address], [place], [place], [address], . tel:[phone] Referring Provider: [address], [place], [address]. tel:[phone] Family History Family Member Type Diagnosis Age At Onset No Information Payers Payer name Insurance type Covered alliance party ID Authoriza tilanny(s) MEDICARE MB [id number] [facility] INDIVIDUAL ASSURANCE CO CI [id number] Social History Type Description Quantity Date Captured [...]
--- OUTSIDE RECORDS SUMMARY | 2025-01-13 15:15 | XMS_ITS | Clinical Summary ---
Author Organization [facility] Address [address] [place] [address] Care Team Providers Care Geoduck Diver Name Role Phone Sheila Saul Maguire DO Primary Care Provider Ajith Krueger MD Unavailable [phone] Allergies Active Allergy Reactions Criticality Noted Date [...] times a day 180 tablet 3 4 Active metoprolol XL (TOPROL-XL) 50 mg extended [...] 10/29/2023 Assessment & Plan (05/15/2024 4:46 PM BEAD PREPARER): Sinus node dysfunction, status post pacemaker. The [...] bruising - recommend continued therapy for thromboprophylaxis long-term current use of antiarrhythmic drug Atrial fibrillation 03/22/2022 Overview (03/22/2022): Added automatically from request for surgery [id number] Assessment & Plan (05/15/2024 4:45 PM BEAD PREPARER): The patient is 1-1/2 years status post [...] monitor for toxicity. The patient has a WIF4VR1-TEYv score of 4. I have therefore recommended [...] today Assessment & Plan (05/03/2023 8:44 AM BEAD PREPARER): The patient is six-month status post ablation for atrial fibrillation, doing well. Maintaining sinus rhythm with low-dose flecainide. At this point, we will discontinue flecainide. The patient has a LBL4DJ8-RPHc score of 4. I have therefore recommended [...] the current dose). The patient has a MVD1BR7-QACk score of 3. I have therefore recommended [...] monitor for toxicity. The patient has a GGC5AH5-ZQWi score of 3. I have therefore recommended continued anticoagulation for thromboprophylaxis. My office will make the appropriate arrangements. From: April, Gunner LS, Irasema JS, Anabelle H, Daniel RODOLFO, Iris JE, Melanie JOHN, Francisco PT, Breanna OH, Field PENALOZA, Guillermo KT, Andreia RL, Dawood WG, Denny PJ, Stacia CM, Monalisa CW. 2014 AHA/ACC/HRS guideline for the management of patients with atrial fibrillation: a report of the [place] College of Cardiology/[place] Heart Association Task Force on Practice Guidelines [...] dose of flecainide) The patient has a CEI2HS0-IXOl score of 4. I have therefore recommended continued anticoagulation for thromboprophylaxis. The patient will follow-up with me in 3 months for an office visit and twelve- lead ECG. Immunizations Immunization Administration Dates Next Due Influenza, [...] Comments Blood Pressure 122/76 05/15/2024 1:40 PM BEAD PREPARER Pulse 82 05/15/2024 1:40 PM BEAD PREPARER Temperature 36.3 C (97.4 F) 11/08/2022 2:08 PM CDT Respiratory Rate 19 10/17/2023 3:45 PM CDT Oxygen Saturation 97% 10/29/2023 1:21 PM CDT Inhaled Oxygen Concentration - - Weight 93.4 kg (206 lb) 05/15/2024 1:40 PM BEAD PREPARER Height 160 cm (5' 3) 05/15/2024 1:40 PM BEAD PREPARER Body Mass Index 36.49 05/15/2024 1:40 PM BEAD PREPARER Plan of Treatment Health Maintenance Due Date [...] history exists Medical Devices Implanted Type Area Drug Abuse Worker Device Identifier Shelf Expiration Date Model / Serial / Lot [employer] Vascade Mvp 6-12fr Venous Closure [id number] - [id number] - [id number] Implanted:Qty : 1 on 11/08/2022 by Ajith Krueger MD at [facility] Collagen [employer] 07/27/2024 800-612C- 10U / [id number] / [id number] [employer] Vascade Mvp 6-12fr Venous Closure [id number] - [id number] - [id number] Implanted:Qty : 1 on 11/08/2022 by Ajith Krueger MD at [facility] [employer] 08/09/2024 800-612C- 10U / [id number] 04B / [id number] [employer] Vascade Mvp 6-12fr Venous Closure [id number] - [id number] - [id number] Implanted:Qty : 1 on 11/08/2022 by Ajith Krueger MD at [facility] [employer] 08/09/2024 800-612C- 10U / [id number] 04B / [id number] [id number] [employer] Vascade Mvp 6-12fr Venous Closure [id number] - [id number] - [id number] Implanted:Qty : 1 on 11/08/2022 by Ajith Krueger MD at [facility] [employer] 08/09/2024 800-612C- 10U / [id number] 04B / [id number] [employer] Active Fixation Steroid Eluting Latex Free Sterile Right Atrium Ventricle Ultipace 52cm Qtd3924/52 - [id number] - [id number] Implanted:Qty : 1 on 10/17/2023 by Ajith Krueger MD at [facility] Lead [employer] [id number] 06/13/2026 LPA12 13/09 2 / [id number] / [employer] Active Fixation Steroid Eluting Latex Free Sterile Right Atrium Ventricle Ultipace 46cm Hap0434/46 - [id number] - [id number] Implanted:Qty : 1 on 10/17/2023 by Ajith Krueger MD at [facility] Lead [employer] [id number] 04/15/2026 LPA12 6 / [id number] / [employer] Assurity Mri [id number] 2 Chamber Is-1 Connector Thk6mm Pacemaker [id number] - [id number] - [id number] Implanted:Qty : 1 on 10/17/2023 by Ajith Krueger MD at [facility] Pacemaker [employer] [id number] 02/13/2025 [id number] / [id number] / [employer] Device Clsr Perclose Prostyle Sut-Mediatd Closure-Repai r Sys 75302-62 - [id number] - [id number] Implanted:Qty : 1 on 03/27/2022 by Chance Cuellar MD at [facility] [employer] 11/14/2023 77413-09 / [id number] / [id number] [employer] Device Clsr Perclose Prostyle Sut-Mediatd Closure-Repai r Sys 21442-95 - [id number] - [id number] Implanted:Qty : 1 on 03/27/2022 by Chance Cuellar MD at [facility] [employer] 01/14/2024 [id number] / [id number] / [id number] [employer] Device Clsr Perclose Prostyle Sut-Mediatd Closure-Repai r Sys 02822-92 - [id number] - [id number] Implanted:Qty : 1 on 03/27/2022 by Chance Cuellar MD at [facility] [employer] 12/15/2023 02678-41 / [id number] / [id number] [place] [address] [facility] MEDIC[facility] Address: [address] [address] [place] [address] [place] [address] [facility] MEDIC[facility] Address[place] [address] [address] [place] [address] [place] [address] Care Teams Geoduck Diver Relationship Specialty Start Date End Date Saul Sosa DO [address] [place] [address] PCP - General Family Medicine 05/02/22 Ajith Krueger MD [address] [address] Consulting Physician Cardiology 05/02/22
--- OUTSIDE RECORDS SUMMARY | 2025-01-13 15:15 | XMS_ITS | Clinical Summary ---
Author Organization [facility] Address [address] [place] [address] Care Team Providers Care Sales Effectiveness Manager Name Role Phone Saul Sosa DO Primary Care Provider [phone] Allergies Active Allergy Reactions Criticality Noted Date Comments Atorvastatin Palpitations High 05/12/2016 Citalopram Diarrhea Low 03/22/2022 Escitalopram Diarrhea 01/14/2024 Penicillins Rash Low 01/03/2024 Medications losartan (COZAAR) 50 MG tablet Take 1 tablet (50 mg total) by mouth 2 (two) times daily. Active METOPROLOL SUCCINATE ER OR Take 50 mg by mouth 2 (two) times a day. 100mg in AM and 50mg at night Active amLODIPine (NORVASC) 5 MG tablet Take 1 tablet (5 mg total) by mouth daily. Active flecainide (TAMBOCOR) 50 MG tablet Take 1 tablet (50 mg total) by mouth 2 (two) times daily. Active apixaban (ELIQUIS) 5 MG tablet Take 1 tablet (5 mg total) by mouth 2 (two) times daily. Active pravastatin (PRAVACHOL) 20 MG tablet Take 1 tablet (20 mg total) by mouth nightly at bedtime. Active LORazepam (ATIVAN) 1 MG tablet Take 0.5 tablets (0.5 mg total) by mouth every 6 (six) hours as needed for Anxiety. Active multi vitamin/mineral s (THERA-M ENHANCED) tablet Take 1 tablet by mouth daily. Active acetaminophen (TYLENOL) 325 MG tablet Take 2 tablets (650 mg total) by mouth every 6 (six) hours as needed for Pain. Active calcium carbonate-vitam in D 600-5 MG-MCG Tab Take 1 tablet by mouth daily. Active Social History Tobacco Use Types Packs/Day Years Used Date Smoking Tobacco: Never Smokeless Tobacco: Never Tobacco Cessation:Counseling Given: Not Answered Alcohol Use Standard Drinks/Week Comments Never 0 (1 standard drink = 0.6 oz pur e alcohol) Comments No Sex and Gender Information Value Date Recorded Sex Assigned at Female 07/01/2024 10:11 AM CDT Legal Sex Female 2:09 PM CDT Gender Identity Not on file Sexual Orientation Not on file Last Filed Vital Signs Vital Sign Reading Time Taken Comments Blood Pressure 125/89 01/14/2024 9:45 AM CDT Pulse 88 01/14/2024 9:45 AM CDT Temperature 37 C (98.6 F) 01/14/2024 7:35 AM CDT Respiratory Rate 16 01/14/2024 7:35 AM CDT Oxygen Saturation 98% 01/14/2024 9:45 AM CDT Inhaled Oxygen Concentration - - Weight 93 kg (205 lb) 01/14/2024 7:35 AM CDT Height 160 cm (5' 3) 01/14/2024 7:35 AM CDT Body Mass Index 36.31 01/14/2024 7:35 AM CDT Plan of Treatment Health Maintenance Due Date Last Done Comments Hepatitis C 1963 DTaP, Tdap and Td Vaccines ( 1 - Tdap) 1966 Zoster Vaccines (1 of 2) 1997 Annual Medicare Wellness Visit 2012 Dexa Scan (General) 2012 Pneumococcal Vaccine: 50+ Ye ars (2 of 2 - PCV) 12/15/2016 12/16/2015 RSV Immunization or 60+ Years (1 - 1-dose 75+ series) 2022 COVID-19 Vaccine ( - 2023-2 5 season) 2024 Meningococcal B Vaccine Aged Out No l onger eligible based on patient's age to complete this topic Meningococcal Vaccine Aged Out No arthur lisa eligible based on patient's age to complete this topic RSV Immunizations Under 20 Months Aged Out No longer eligible based on patient's age to complete this topic Medical Devices Implanted Type Area Contact Center Manager Device Identifier Shelf Expiration Date Model / Serial / Lot Ra Lead Implant-10/17/19 24 Implanted:Qty: 1 on 10/17/2023 by Ajith Krueger MD Lead Implant Right: Atrium [employer] DIV [employer] [id number] / [id number] / Rv Lead Implant-10/17/19 24 Implanted:Qty: 1 on 10/17/2023 by Ajith Krueger MD Lead Implant Right: Ventricle [employer] [id number] / [id number] / Iol [employer] Simplicity Dcb00 - [id number] Implanted:Qty: 1 on 01/14/2024 by Iggy Sanabria MD at [facility] Lens Right: Eye [employer] 05/07/2026 DCB00 / / [id number] Pacemaker-2023 Implanted:Qty: 1 on 10/17/2023 by Ajith Krueger MD Pacemaker Chest [employer] [id number] / [id number] / Description:MRI Conditional under following conditions: Static magnetic field of 1.5 T or 3 T, Max spatial gradient field of 3000 Gauss/cm or less, Max slew rate 200 T/m/s or less, Max whole body TRACE of 2 W/kg or less, Head TRACE 3.2 W/kg or less, Supine or Prone position Insurance MEDICARE Care Teams Sales Effectiveness Manager Relationship Specialty Start Date End Date Saul Sosa DO [address] [place] [address] PCP - General FAMILY PRACTICE 01/11/24
--- NOTE | 2025-01-13 15:17 | ECHO_ITS ---
Patient Info Name: Klarissa Catalan Age: 79 years : 1945 Gender: Female Ht: 63 in Wt: 217 lbs BSA: 2.14 m2 HR: 101 bpm BP: 106 / 80 mmHg Technical Quality: Fair Exam Date: 01/13/2025 3:18 PM Patient Status: O Admit Date: 01/13/2025 Exam Type: CA echo dop color flow w con Complete two-dimensional, color flow and Doppler transthoracic echocardiogram is performed with contrast to opacify the left ventricle and to improve the deliniation of the left ventricle endocardial borders. Rn New Grad: Antonia Riggs Attending Provider: Saul Sosa Contrast/Agitated Saline Contrast/Ag. Saline: Definity Amount: 2.00 ml Summary 1. Definity contrast administered improved wall motion interpretation. 2. Left ventricular chamber dimension is moderately enlarged. 3. Left ventricular systolic function is severely globally reduced, estimated at 20-25. 4. Left ventricular septal wall motion is abnormal with septal motion related to bundle branch block. 5. The left ventricular diastolic function is abnormal. 6. E/e' 40 is significantly elevated. 7. Linear artifact in right ventricle suggestive of catheter(s), pacemaker lead(s), or ICD lead(s). 8. Left atrial chamber dimension is moderately enlarged. 9. Right atrial chamber dimension is mildly enlarged. 10. Linear artifact in the right atrium suggestive of catheter(s), pacemaker lead(s), or ICD lead(s). 11. There is mild to moderate mitral valve regurgitation. 12. There is severe tricuspid valve regurgitation. 13. Mild pulmonary hypertension, estimated pulmonary arterial systolic pressure is 41 mmHg. 14. There is trace pulmonic regurgitation. 15. Dilated inferior vena cava with >50% collapse upon inspiration consistent with elevated right atrial pressure, 10 mmHg. Left Ventricle E/e' 40 is significantly elevated. Left ventricular chamber dimension is moderately enlarged. Left ventricular systolic function is severely globally reduced, estimated at 20-25. Left ventricular septal wall motion is abnormal with septal motion related to bundle branch block. The left ventricular diastolic function is abnormal. Definity contrast administered improved wall motion interpretation. Right Ventricle Right ventricular chamber dimension is normal. Right ventricular systolic function is normal. Linear artifact in right ventricle suggestive of catheter(s), pacemaker lead(s), or ICD lead(s). Left Atria Left atrial chamber dimension is moderately enlarged. Right Atria Right atrial chamber dimension is mildly enlarged. Linear artifact in the right atrium suggestive of catheter(s), pacemaker lead(s), or ICD lead(s). Aortic Valve The aortic valve is trileaflet. There is no aortic valve stenosis. There is no aortic valve regurgitation. Pulmonic Valve There is trace pulmonic regurgitation. Mitral Valve There is no mitral valve stenosis. There is mild to moderate mitral valve regurgitation. Tricuspid Valve There is severe tricuspid valve regurgitation. Mild pulmonary hypertension, estimated pulmonary arterial systolic pressure is 41 mmHg. Pericardium/Pleural There is no pericardial effusion. Inferior Vena Cava Dilated inferior vena cava with >50% collapse upon inspiration consistent with elevated right atrial pressure, 10 mmHg. Aorta The aortic root size at the sinus of Valsalva is normal. Left Ventricular Outflow Tract Name Value Normal LVOT 2D LVOT Diameter 1.7 cm LVOT Doppler LVOT Peak Velocity 52 cm/s LVOT Peak Gradient 1 mmHg LVOT Mean Gradient 1 mmHg LVOT VTI 8 cm LVOT Stroke Volume 17 ml LVOT CO 1.7 l/min LVOT CI 0.8 l/min/m2 Pulmonic Valve Name Value Normal RVOT Doppler RVOT Peak Velocity 41 cm/s RVOT Peak Gradient 1 mmHg PV Doppler PV Peak Velocity 60 cm/s PV Peak Gradient 1 mmHg Mitral Valve Name Value Normal MV Diastolic Function MV E Peak Velocity 75 cm/s MV A Peak Velocity 17 cm/s MV E/A 4.4 MV Decel Time (PW) 173 ms MV Annular TDI MV E/e' (Septal) 47.6 MV E/e' (Lateral) 34.7 MV E/e' (Average) 41.1 Tricuspid Valve Name Value Normal TV Regurgitation Doppler TR Peak Velocity 278 cm/s TR Peak Gradient 31 mmHg Estimated PAP/RSVP RA Pressure 10 mmHg <=5 PA Systolic Pressure 41 mmHg <36 RV Systolic Pressure 41 mmHg <36 Aortic Valve Name Value Normal AV Doppler AV Peak Velocity 60 cm/s AV Peak Gradient 1 mmHg AV Area (Cont Eq Adams) 1.9 cm2 AV DI (Adams) 0.87 AV Regurgitation 2D LVOT Area 2.2 cm2 Ventricles Name Value Normal LV Dimensions 2D/MM IVS Diastolic Thickness (2D) 1.0 cm 0.6-1.0 LVID Diastole (2D) 4.5 cm 3.8-5.2 LVIW Diastolic Thickness (2D) 1.0 cm 0.6-0.9 LVID Systole (2D) 4.3 cm 2.2-3.5 LVOT Diameter 1.7 cm LV Mass (2D Cubed) 150.86 g 67.00-162.00 LV Mass Index (2D Cubed) 70 g/m2 43-95 Relative Wall Thickness (2D) 0.45 <=0.42 LV Fractional Shortening/Ejection Fraction 2D/MM LV Fractional Shortening (2D) 5 % 27-45 LV EF (2D [place]) 11 % LV Diastolic Volume (4C MOD) 131 ml LV EF (4C MOD) 25 % LV Diastolic Volume (2C MOD) 113 ml LV EF (2C MOD) 15 % LV Diastolic Volume (BP MOD) 131 ml 46-106 LV Diastolic Volume Index (BP MOD) 61 ml/m2 29-61 LV Systolic Volume (BP MOD) 99 ml 14-42 LV Systolic Volume Index (BP MOD) 46 ml/m2 8-24 LV EF (BP MOD) 24 % 54-74 LV Diastolic Length (4C) 8.4 cm LV Systolic Length (4C) 7.4 cm LV Stroke Volume (4C MOD) 33 ml Atria Name Value Normal LA Dimensions LA Volume (4C A-L) 90 ml LA Volume (BP A-L) 89 ml RA Dimensions RA Systolic Major Sweeny Length (4C) 6.5 cm 2.2-2.8 RA Area (4C) 19.3 cm2 <=18.0 Report Signatures
[2025-01-13] MEDS: PERFLUTREN LIPID MICROSPHERES 1.5 ML VIAL DILUTED TO 10 ML TOTAL VOLUME IV PUSH (16:00)
== END 2025-01-13 15:13 | disposition home or self-care (01) ==
LOC: CHSIMG 15:13
PROVIDERS: PCP Family Medicine; Visit Provider Family Medicine
DX: I11.0 Hypertensive heart disease with heart failure (principal); I50.9 Heart failure, unspecified; I07.1 Rheumatic tricuspid insufficiency; I34.0 Nonrheumatic mitral (valve) insufficiency
CPT/HCPCS: C8929

== ENCOUNTER 2025-02-12 02:17 | Day surgery (SDC) | payer MEDICARE, SELFPAY ==
[2025-02-11 11:45] VITALS: BMI 34.0
[2025-02-12] VITALS (17 sets, daily range): BP systolic 104–134; BP diastolic 63–95; PULSE 80–115; RESP 14–26; TEMP 36.9; O2SAT 95–98; BMI 34.0
--- OUTSIDE RECORDS SUMMARY | 2025-02-12 02:20 | XMS_ITS | Data Portability ---
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 This is on the right elbow. We talked about treatment today she is going to wear a sling for comfort remove the sling a couple of times a day in the morning and then again in the afternoon evening to work on very gentle range of motion she can let gravity help her with extension of the elbow she can use her other arm to help her flex it up she will also work on gentle pronation and supination of the hand and forearm. I have advised her to do this every day several times a day to help prevent stiffness. She has not to do anything heavy or repetitive with the arm otherwise. I will see her back in 1 week for new x-rays to make sure the fracture does not displace further. She voiced understanding and agrees with the above plan she does have hydrocodone she is taking for pain as well. When she feels comfortable she can switch to Advil or Aleve or Tylenol. As far as the patient's right wrist goes she has has a mild sprain. X-rays today were negative. 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 She may have flared this up as well. She can work on gentle range of motion of her wrist as well use ice on the elbow as necessary. I will see her back in a week she voiced understanding agrees above plan she will call for any further problems difficulties or questions. Not available 08/03/2023 12:10:29 08/10/2023 08/10/2023 By today's x-ray exam the patient is noted have a healing fracture of the head of the right radius. The patient had a small minimally displaced fracture of the right radial head had some mild impaction around the rim of the head of the radius. Overall alignment today is unchanged on x-ray looks good can barely see the fracture. She also had a right wrist sprain this is slowly improving with time as well. I have advised her to continue to work on her range of motion she is making good strides and good progress with her range of motion she is excellent function no neurovascular deficits. Her elbow is stable. I will see her back in 3 weeks we will take another x-ray slow gradual progress is to be expected she voiced understanding agrees above plan she will continue to avoid heavy repetitive things with her right upper extremity for now. She will call for any further problems difficulties or questions. Not available 08/10/2023 10:53:56 08/31/2023 08/31/2023 The patient has a healing fracture of the head of the right radius. She also has a basically resolved right wrist sprain this is feeling much better too. Today's x-rays of the right elbow show good callus formation the fracture line has essentially disappeared. She is making good strides with her comfort level and range of motion with her right elbow and wrist she can start to slowly wean back into normal activities. No heavy repetitive things quite yet give it another month I do not think I need to see her back as the x-rays do show good callus formation already. The patient agreed she voiced understanding agrees above plan she will call me if she has any further problems difficulties or questions. Not available 08/31/2023 10:38:42 Plan of Treatment Reminders Order Date Submit Date Provider Last Modified By Organization Details Last Modified Time Details Appointments None recorde d. Lab None recorde d. Referral None recorde d. Procedures None recorde d. Surgeries None recorde d. Imaging XR, elbow, 2 view 024 08/31/19 24 [email or web address] [facility] [place], [address], [place], [address], 4 13:54:12 XR, elbow 024 08/10/19 24 [email or web address] [facility] [place], [address], [address], 4 12:33:01 XR, wrist, 3 or more view 024 08/03/19 24 [email or web address] [facility] [place], [address] [place], [address], 4 12:28:47 Medication Orders None recorde d. Patient TargetsNo targets recorded. Patient InstructionsNo instructions recorded. Reason for Referral None Reported. Results Created Date Observation Date Name Description Value Unit Range Abnormal Flag Note LastModifiedBy Organization Detail LastModifiedTime 12/11/19 21 XR, hip, unila teral No observ ation record ed. [id number] [facility] [place] [address], [address], 06/14/2022 13:31:03 08/02/19 24 08/02/2023 XR, elbow , 3 or more view No observ ation record ed. [email or web address] Not Available 07/15 17:31:19 08/03/19 24 XR, wrist , 3 or more view No observ ation record ed. [email or web address] [facility] [place] [address], [address], 08/03/2023 12:11:10 08/10/19 24 XR, elbow No observ ation record ed. [email or web address] [facility] [place] [address] [place], [address], 08/10/2023 10:54:36 08/31/19 24 XR, elbow , 2 view No observ ation record ed. [email or web address] [facility] [place] [address], [place], [address], 08/31/2023 10:36:30 Result Notes None recorded. Problems Name Problem SNOMED Code Status Onset Date Resolution Date Notes Provider Name and Address Organization Details Recorded Time Spinal enthesopat hy 97427802 Active Not Available [facility] 3 13:29:00 Disorder of trunk 089616224 Active Not Available [facility] 3 13:29:00 Disorder of sacrum 75598163 Active Not Available [facility] 3 13:29:00 Osteoarthr itis of knee 473193651 Active Not Available [facility] 3 13:29:00 Low back pain 048659851 Active Not Available [facility] 3 13:29:00 Osteoarthr itis 113634522 Active Not Available [facility] 3 13:29:01 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 12783513 Active Not Available [facility] 3 13:29:01 Neck pain 79933579 Active Not Available [facility] 3 13:29:01 Spinal stenosis in cervical region 28577884 Active Not Available [facility] 3 13:29:01 Partial thickness rotator cuff tear 908329603 Active 2019 Not Available [facility] 3 13:29:00 Pain of right elbow joint 6877696280421 9109 Active 2023 PHYLLIS Epperson, [facility] 4 10:43:36 Pain of right wrist 3832222805579 00 Active 2023 PHYLLIS Epperson, [facility] 4 11:07:45 Sprain of right wrist 9412684401281 9103 Active 2023 GURU Rodriguez [address] [facility] [address], [place], [address] , [employer] 4 12:11:49 Closed fracture of head of right radius 3785153496131 9108 Active 2023 GURU Rodriguez [address] [facility] [address], [place], [address] , [facility] 4 12:11:59 Problem Notes None recorded. Procedures Surgical History Date Name Laterality Status Provider Name and Address Organization Details Recorded Time Knee Replacement completed Joanne G ass, LAB REP [place] [facility] 08/03/2023 10:41:37 Knee Replacement completed Joanne G ass, [facility] REP [place] [facility] 08/03/2023 10:41:46 Hysterectomy completed Joanne Nori, [facility] RE[facility] [place] [facility] 08/03/2023 10:41:59 cholecystectomy completed Joanne Ga ss, LAB REP [place] [facility] 08/03/2023 10:42:23 Imaging Results None recorded. Procedure Notes None recorded. Medical Equipment None Reported. Allergies Allergen ID Allergen Name Allergen Category Reaction Reaction Severity Criticality Documentation Date Start Date Code Code System Note Provider Name and Address Organization Details Recorded Time 59116 Product containin g penicilli n (product) medicatio n rash Not available Not available 06/14/2022 58688 8001 SNOMED Not Available [facility] 3 13:31:01 55852 atorvasta tin medicatio n Not available Not available Not available 06/14/2022 57669 RxNorm Not Available [facility] 3 13:31:01 27903 escitalop cheryle Not available diarrhea Not available Not available 08/03/2023 95531 8 RxNorm Joanne Nori, LAB REP null, [place] [facility] 4 10:35:58 Medications Name Sig Start Date Stop Date Status Note LastModified by Organization Details LastModified Time losartan 50 mg tablet TAKE 1 TABLET BY MOUTH TWICE DAILY active Not Available Not Available No t Available potassium chloride ER 10 mEq capsule,ext ended release TAKE 1 CAPSULE BY MOUTH DAILY WITH FOOD 12/10 completed Not Available Not Available Not Available prednisone 10 mg tablet TAKE 1 TABLET BY MOUTH TWICE DAILY 08/02 completed Not Available Not Available Not Available clindamycin HCl 300 mg capsule 10/21 completed Not Available Not Available Not Available flecainide 150 mg tablet TAKE 1 TABLET BY MOUTH EVERY 12 HOURS 08/02 completed Not Available Not Available Not Available azithromyci n 250 mg tablet 10/21 completed Not Available Not Available Not Available metoprolol succinate ER 50 mg tablet,exte nded release 24 hr 10/21 completed Not Available Not Available Not Available hydrocodone 5 mg-acetamin ophen 325 mg tablet TAKE 1 TABLET BY MOUTH EVERY 8 HOURS NEEDED FOR PAIN active Not Available Not Available No t Available sotalol 80 mg tablet TAKE 1 TABLET BY MOUTH EVERY 12 HOURS 10/21 completed Not Available Not Available Not Available meclizine 12.5 mg tablet 10/21 completed Not Available Not Available Not Available potassium chloride ER 10 mEq tablet,exte nded release TAKE 1 TABLET BY MOUTH ONCE DAILY 12/10 completed Not Available Not Available Not Available acetaminoph en 300 mg-codeine 30 mg tablet 12/10 completed Not Available Not Available Not Available amlodipine 5 mg tablet TAKE 1 TABLET BY MOUTH ONCE DAILY active Not Available Not Available No t Available omeprazole 40 mg capsule,del ayed release 10/21 completed Not Available Not Available Not Available tramadol 50 mg tablet 10/21 completed Not Available Not Available Not Available ketorolac 0.5 % eye drops INSTILL 1 DROP INTO LEFT EYE ONCE DAILY 08/02 completed Not Available Not Available Not Available alprazolam 0.25 mg tablet TAKE 1 TABLET BY MOUTH TWICE DAILY FOR ANXIETY; TAKE ONLY NEEDED FOR SEVERE ANXIETY. 08/02 completed Not Available Not Available Not Available prednisolon e acetate 1 % eye drops,suspe nsion 10/28 completed Not Available Not Available Not Available Kenalog 10 mg/mL suspension for injection In office injection administe red by the provider 12/10 completed [facility]: 0003- 0494- 20 Not Available Not Available Not Available hydrocodone 7.5 mg-acetamin ophen 325 mg tablet 10/21 completed Not Available Not Available Not Available cephalexin 500 mg capsule 10/21 completed Not Available Not Available Not Available pantoprazol e 40 mg tablet,fred yed release 12/10 completed Not Available Not Available Not Available prednisone 50 mg tablet TAKE 1 TABLET BY MOUTH ONCE DAILY 08/02 completed Not Available Not Available Not Available flecainide 50 mg tablet TAKE 1 TABLET BY MOUTH TWICE DAILY 08/02 completed Not Available Not Available Not Available flecainide 100 mg tablet TAKE 1 TABLET BY MOUTH TWICE DAILY 08/02 completed Not Available Not Available Not Available nitroglycer in 0.[address] 1 TABLET UNDER THE TONGUE EVRY 5 MINUTES NEEDED FOR CHEST PAIN (FOR UP TO 3 DOSES). IF NO RELIEF AFTER 3RD DOSE CALL 911 10/28 completed Not Available Not Available Not Available omeprazole 20 mg capsule,del ayed release 10/21 completed Not Available Not Available Not Available nadolol 40 mg tablet TAKE 1 TABLET BY MOUTH ONCE DAILY 10/28 completed Not Available Not Available Not Available pravastatin 20 mg tablet TAKE 1 TABLET BY MOUTH AT BEDTIME active Not Available Not Available No t Available hydrochloro thiazide 25 mg tablet TAKE 1 TABLET BY MOUTH ONCE DAILY 08/02 completed Not Available Not Available Not Available metoprolol succinate ER 25 mg tablet,exte nded release 24 hr TAKE 1/2 (ONE-HALF ) TABLET BY MOUTH ONCE DAILY active Not Available Not Available No t Available lorazepam 1 mg tablet TAKE 1 TABLET BY MOUTH ONCE DAILY NEEDED FOR ANXIETY active Not Available Not Available No t Available losartan 50 mg-hydrochl orothiazide 12.5 mg tablet TAKE 1 TABLET BY MOUTH ONCE DAILY 10/21 completed Not Available Not Available Not Available colchicine 0.6 mg tablet TAKE 2 TABLETS BY MOUTH ONE TIME, THEN TAKE 1 TABLET BY MOUTH 1 HOUR LATER; DO NOT REPEAT FOR 3 DAYS 08/02 completed Not Available Not Available Not Available sertraline 50 mg tablet TAKE 1 TABLET BY MOUTH ONCE DAILY 08/02 completed Not Available Not Available Not Available escitalopra m 10 mg tablet 10/21 completed Not Available Not Available Not Available moxifloxaci n 0.5 % eye drops 10/28 completed Not Available Not Available Not Available cholestyram ine (with sugar) 4 gram oral powder 10/21 completed Not Available Not Available Not Available potassium chloride ER 10 mEq tablet,exte nded release(par t/cryst) TAKE 1 TABLET BY MOUTH ONCE DAILY 12/10 completed Not Available Not Available Not Available metoprolol tartrate 25 mg tablet TAKE 1 2 (ONE HALF) TABLET BY MOUTH ONCE DAILY 08/02 completed Not Available Not Available Not Available duloxetine 30 mg capsule,del ayed release 10/21 completed Not Available Not Available Not Available Tylenol 08/02 completed Not Available Not Available Not Available multivitami n one tab a day active Not Available Not Available No t Available lidocaine (PF) 10 mg/mL (1 %) injection solution In office injection administe red by the provider 12/10 completed [facility]: 0409- [id number]- 17 Not Available Not Available Not Available hydrochloro thiazide 12.5 mg tablet TAKE 1 TABLET BY MOUTH ONCE DAILY 08/02 completed Not Available Not Available Not Available Calcium 600 + D(3) 600 mg-10 mcg (400 unit) tablet Take 1 tablet every day by oral route. active Not Available Not Available No t Available Cholestyram ine Light 4 gram oral powder DISSOLVE 1 SCOOP IN 2 TO 6 OZ OF WATER OR JUICE DAILY 10/21 completed Not Available Not Available Not Available GaviLyte-G 236 gram-22.74 gram-6.74 gram-5.86 gram oral solution 10/21 completed Not Available Not Available Not Available Xarelto 10 mg tablet 10/21 completed Not Available Not Available Not Available Eliquis 5 mg tablet TAKE 1 TABLET BY MOUTH TWICE DAILY active Not Available Not Available No t Available aspirin 81 mg capsule Take by oral route. 08/02 completed Not Available Not Available Not Available Vitals Date Recorded Body height Body mass index (BMI) Body weight Provider Name and Address Organization Details Last Updated DateTime 08/03/2023 160.02 cm 36.3 kg/m2 14396.44 diana Joanne Julio CNA [facility] 08/03/2023 10:35:25 Date Recorded Body height Body mass index (BMI) Body weight Provider Name and Address Organization Details Last Updated DateTime 08/10/2023 160.02 cm 36.3 kg/m2 80913.44 diana Joanne Julio CNA [facility] 08/10/2023 10:28:34 Date Recorded Body height Body mass index (BMI) Body weight Pain severity - 0-10 verbal numeric rating [Score] - Reported Provider Name and Address Organization Details Last Updated DateTime 08/31/2023 160.02 cm 36.3 kg/m2 62036.44 g 1 Niecy FAUSTO Mustafa [place] [facility] 08/31/2023 10:19:41 Date Recorded Body mass index (BMI) Body height Body weight Provider Name and Address Organization Details Last Updated DateTime 12/10/2020 35.4 kg/m2 160.02 cm 17655.47 g Not Available [facility] 06/14/2022 13:28:50 Social History None recorded. Functional Status Question Answer Note LastModified by Organizat ion Details LastModified Time What is your level of alcohol consumption? None [id number] Information not available 06/14/2022 Mental Status None recorded. Family History Relationship Description Onset Age of this Age Resolved Age Notes LastModified by Organization Details LastModified Time Father Heart disease [id number] Not available 06/14/2022 13:28:32 Father Hypertensive disorder [id number] Not available 06/14/2022 13:28:32 Sister Heart disease [id number] Not available 06/14/2022 13:28:32 Sister Hypertensive disorder [id number] Not available 06/14/2022 13:28:32 Sister Diabetes mellitus [id number] Not available 06/14/2022 13:28:32 Medical History Condition Response ARTHRITIS Y HEART DISEASE/HEART PROBLEMS Y GOUT Y HEART ARRHYTHMIA Y HYPERTENSION Y Gynecological HistoryNo gynecological history recorded. Obstetrics History GPAL:G 0 P 0 0 0 0 Past Encounters Encounter ID Performer Location Encounter Start Date Encounter Closed Date Diagnosis/Indication Diagnosis SNOMED-CT Code Diagnosis ICD10 Code Diagnosis IMO Codes Diagnosis Note [id number] GURU Rodriguez [facility] [place] [facility] [place] [address] [place] [address] 12/10/2020 00:00:00 12/10/2020 14:29:01 [id number] Roberto Aly MD [facility] [place] [facility] [place] [address] [place] [address] 08/03/2023 09:59:07 08/03/2023 11:17:59 Pain of right elbow joint 8958017988 0442437 M25.521 Pain of right wrist 3169 856526 75604 M25.531 Closed fra cture of head of right radius 1430239465 8075218 S52.121A Sprain of right wrist 11 75208539 4592154 S63.501A [id number] Roberto Aly MD [facility] [place] [place] [facility] [place] [address] [place] [address] 08/10/2023 10:25:07 08/10/2023 10:51:01 Closed fracture of head of right radius 0280486529 5007399 S52.121D Pain of ri ght elbow joint 7761102423 9902529 M25.521 Sprain of right wrist 11 57524979 4673984 S63.501D Pain of right wrist 3169 898521 01806 M25.661 [id number] Roberto Aly MD [facility] [place] [place] [facility] [place] [address] [place] [address] 08/31/2023 10:06:38 08/31/2023 10:54:02 Pain of right elbow joint 1325128594 4828999 M25.521 Closed fra cture of head of right radius 5947340419 2814882 S52.121D Sprain of right wrist 11 47249846 0973054 S63.501D Pain of right wrist 3169 977960 25339 M25.531 Health Concerns Section Related Observation LastModified by Organization Detai ls LastModified Time None Recorded Concern Status LastModified by Organization Details LastModified Time None Recorded Advance Directives Directive None Recorded Payers Insurance Date Sequence Insurance Name Policy Number Policy Michelle Covered Member ID Michelle Member ID Guarantor Name 09/06/2023 1 [facility] (MEDICARE REPLACEMENT/A DVANTAGE - HMO) [id number] Klarissa Catalan [id number] Klarissa Catalan 08/03/2023 1 [place] Klarissa Catalan [id number] Klarissa Catalan 08/03/2023 1 [employer] (MEDICARE SUPPLEMENT) Klarissa Catalan [id number] Klarissa Catalan Notes Date Note Type Note Provider Name and Address Organization Details Recorded Time 08/03/2023 text/html The patient is a 78-year-old female who was out in her yd yesterday when she stumbled fell forward trying to catch herself with her outstretched right upper extremity. She fell to the ground and had immediate pain in the right elbow somewhat in the wrist as well. She was having enough pain and dysfunction that she decided to go to the emergency room and had x-rays performed. X-rays demonstrated a closed acute traumatic mildly displaced intra-articular fracture along the periphery of the right radial head. This comprises about 10-15% of the articular surface on the lateral rim. No dislocation or fractures are otherwise seen. 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 She was given hydrocodone she has been using a sling for comfort states her pain is about a 6 on a scale of 1-10. Has difficulty with flexion extension pronation supination of the forearm. She has some mild swelling no ecchymosis denies any neurovascular deficits. She is also having some pain in the wrist with flexion and extension she is tender around the wrist to but she did not get x-rays of the wrist we will get new x-rays of her wrist today to make sure she does not have a fracture here as well. Patient comes in today for initial evaluation treatment of her right radial head fracture as well as right wrist pain. Past medical history sheet was reviewed and signed on the intake sheet of today's date drug allergies current medications family social history previous surgical history 10 point review of systems was reviewed and discussed in detail today with the patient. GURU Rodriguez [address] [facility] [address], [place], [address], [facility] 08/03/2023 12:12:36 08/10/2023 text/html Patient returns for recheck of her right elbow radial head fracture. She is now 8 days status post injury. She states her pain is improving with time she has been working on range of motion previously she was quite stiff and having a lot of pain now she states her pain is about a 2 on a scale 1-10 not a lot of pain at rest if she tries to work on her motion it is a little more painful. Previously she lacked about 30 of extension now she lacks about 15 . She can flex to nearly full flexion now as well previously was about 95 she has full pronation and supination of her hand and forearm denies any neurovascular deficits otherwise is doing well comes in today for recheck she also had a right wrist sprain this is still little painful and tender but is improving with time as well no significant problems with her wrist here. She has good function and motion today but a little bit of swelling around the wrist and hand. GURU Rodriguez [address] [facility], [place], [address], [employer] 08/10/2023 10:55:03 08/31/2023 text/html Patient returns for recheck of her right elbow. She has a healing fracture of the head of the right radius there is a small minimally displaced fracture of the right radial head with mild impaction around the rim of the head of the radius. She comes in today stating her pain level is pretty good about a 1 on a scale of 1-10 now she is making good strides in improvement with range of motion and comfort level. She only lacks maybe 5-7 degrees of extension has full flexion full pronation supination of the forearm and hand. Denies any numbness or tingling has a little discomfort here and there she tries to overdo it but otherwise is feeling much better comes in today for x-rays. She is 1 month status post injury. The patient also had a right wrist sprain this is improving as well states she is feeling much better has good range of motion of her wrist no significant pain here. GURU Rodriguez [address], [place], [address], [employer] 08/31/2023 10:38:51 OBGyn Episode No OBEpisode recorded.
--- OUTSIDE RECORDS SUMMARY | 2025-02-12 02:20 | XMS_ITS | Clinical Summary ---
Author Organization [facility] Address [address] [place] [address] Care Team Providers Care Director Shopper Marketing Name Role Phone Saul Sosa DO Primary Care Provider [phone] Allergies Active Allergy Reactions Criticality Noted Date [...] C 1965 DTaP, Tdap and Td Vaccines (1 - Tdap) 1966 Zoster Vaccines (1 of 2) 1997 Annual Medicare Wellness Visit 2012 Dexa Scan (General) 2012 Pneumococcal Vaccine: 50+ Years (2 of 2 - PCV) 12/15/2016 12/16/2015 RSV Immunization or 60+ Years (1 - 1-dose 75+ series) 2022 COVID-19 Vaccine (1 - season) 2024 Influenza Adult (#1) 2025 12/26/2019, 12/17/2018, 12/31/2017, Additional history exists Hepatitis A Vaccines Aged Out No long er eligible based on patient's age to complete this topic Meningococcal B Vaccine Aged Out No l onger eligible based on patient's age to complete this topic Meningococcal Vaccine Aged Out No arthur lisa eligible based on patient's age to complete this topic RSV Immunizations Under 20 Months Aged Out No longer eligible based on patient's age to complete this topic Medical Devices Implanted Type Area Setter Cold Rolling Machine Device Identifier Shelf Expiration Date Model / Serial / Lot Ra Lead Implant-10/17/19 24 Implanted:Qty: 1 on 10/17/2023 by Ajith Krueger MD Lead Implant Right: At[facility] [employer] [facility] [employer] [id number] / [id number] / Rv Lead Implant-10/17/19 24 Implanted:Qty: 1 on 10/17/2023 by Ajith Krueger MD Lead Implant Right: Ventricle [employer] [facility] [employer] [id number] / [id number] / Iol Tecnis Simplicity Dcb00 - [id number] Implanted:Qty: 1 on 01/14/2024 by Iggy Sanabria MD at [facility] Lens Right: Eye [employer] 05/07/2026 DCB00 / / [id number] Pacemaker-2023 Implanted:Qty: 1 on 10/17/2023 by Ajith Krueger MD Pacemaker Chest [employer] [id number] / [id number] / Description:MRI Conditional under following conditions: Static magnetic field of 1.5 T or 3 T, Max spatial gradient field of 3000 Gauss/cm or less, Max slew rate 200 T/m/s or less, Max whole body TRACE of 2 W/kg or less, Head TRACE 3.2 W/kg or less, Supine or Prone position Insurance MEDICARE Care Teams Director Shopper Marketing Relationship Specialty Start Date End Date Saul Sosa DO [address] [place] [address] PCP - General FAMILY PRACTICE 01/11/24
--- OUTSIDE RECORDS SUMMARY | 2025-02-12 02:20 | XMS_ITS | Data Portability ---
Author Organization [facility] [employer], [facility] Address [address] [place] [address] Care Team Providers Care Feed Inspection Supervisor Name Role Phone ZEKE HAYNES Primary Care Provider ZEKE HAYNES Referring Provider [phone] Assessment No assessment recorded. Plan of Treatment Reminders Order Date Submit Date Provider Last Modified By Organization Details Last Modified Time Details Appointments None recorded. Lab None recorded. Referral None recorded. Procedures None recorded. Surgeries None recorded. Imaging electrocard iogram 2016 017 [email or web address] 75 In-Office Order, Internal Use Only DO Not Attach Compendium DO Not Attach Compendium, Do Not Delete/merge, 13516 7 12:40:43 electrocard iogram 2016 017 [email or web address] 75 In-Office Order, Internal Use Only DO Not Attach Compendium DO Not Attach Compendium, Do Not Delete/merge, [id number] 7 12:40:43 Medication Orders None recorded. Patient TargetsNo targets recorded. Patient InstructionsNo instructions recorded. Reason for Referral None Reported. Results Created Date Observation Date Name Description Value Unit Range Abnormal Flag Note LastModifiedBy Organization Detail LastModifiedTime 04/28/19 17 elect rocar diogr am No observ ation record ed. [email or web address] Not Available 2016 11:42:17 04/28/19 17 elect rocar diogr am No observ ation record ed. [email or web address] Not Available 2016 11:42:17 Result Notes None recorded. Procedures Surgical History Date Name Laterality Status Provider Name and Address Organization Details Recorded Time 04/16/19 16 Joint replacement, Knee completed Luis Felipe Green [facility] 04/28/2016 10:32:14 04/16/19 07 [facility] 04/28/2016 10:32:11 04/16/[address] [facility] 04/28/2016 10:32:01 Imaging Results None recorded. Procedure Notes None recorded. Medical Equipment None Reported. Allergies Allergen ID Allergen Name Allergen Category Reaction Reaction Severity Criticality Documentation Date Start Date Code Code System Note Provider Name and Address Organization Details Recorded Time 987152 Product containin g penicilli n (product) medicatio n rash Not available Not available 04/28/[address] [facility] 7 08:23:14 Medications Name Sig Start Date Stop Date Status Note LastModified by Organization Details LastModified Time losartan 50 mg-hydrochl orothiazide 12.5 mg tablet active Not Available Not Available Not Available Aleve active Not Available Not Availa ble Not Available Calcium 500 active Not Available Not A vailable Not Available Multi Vitamin active Not Available Not Available Not Available Vitals Date Recorded Body weight Body height Body mass index (BMI) Body temperature Heart rate Oxygen saturation Oxygen saturation in Arterial blood by Pulse oximetry Systolic And Diastolic Provider Name and Address Organization Details Last Updated DateTime 7 51126.4 g 160.02 cm 37.2 kg/m2 97.9 [degF] 78 /min 97 % 97 % 160/100 mm[Hg] [facility] 7 08:31:45 Social History Question Answer Notes LastModified by Organizat ion Details LastModified Time Tobacco Smoking Status Never Smoker Luis Felipe Green [facility] 04/28/2016 08:24:46 How Much Tobacco Do You Chew? None Information not available 04/28/2016 Which Illicit Or Recreational Drugs Have You Used? None Information not available 04/28/2016 Marital Status Informatio n not available 04/28/2016 How Much Tobacco Do You Smoke? No Information not available 04/28/2016 Sex: Unknown Functional Status Question Answer Note LastModified by Organization D etails LastModified Time What is your level of alcohol consumption? None Information not available 04/28/2016 Mental Status None recorded. Family History Relationship Description Onset Age of this Age Resolved Age Notes LastModified by Organization Details LastModified Time Father Myocardial infarction 88 Not available 04/28 14:18:51 Father Hypertensive disorder Not available 2016 14:19:27 Father Hypercholest erolemia Not available 2016 14:19:42 Mother Pneumonia 94 Not available 04/28/2016 14:19:09 Medical History Condition Response Measles/Mumps Y High blood pressure Y Seizures Y Arthritis Y Chicken Pox Y Gynecological HistoryNo gynecological history recorded. Obstetrics History GPAL:G 2 P 0 0 0 2 Type Value Living 2 Total 2 Immunizations Vaccine Type Date Status Note Provider Nam e and Address Organization Details Recorded Time Influenza, split virus, quadrivalent, preservative 6 completed [facility], [facility] 04/28/2016 08:24:12 pneumococcal polysaccharide PPV23 6 completed Luis Felipe frederick [facility], [facility] 04/28/2016 08:24:24 Past Encounters Encounter ID Performer Location Encounter Start Date Encounter Closed Date Diagnosis/Indication Diagnosis SNOMED-CT Code Diagnosis ICD10 Code Diagnosis IMO Codes Diagnosis Note [id number] BETTIE Carter [facility] [address] [place] [address] 04/28/2016 07:54:30 04/28/2016 12:40:43 Chest pain 55452607 R07.9 Pt with abnormal EKG and HR. Pt went to [facility] ER via 911. Pt will f/u with a PCP once released. Nausea 917153909 R11.0 Pain radia ting to left arm 680401299 M79.602 Health Concerns Section Related Observation LastModified by Organization Detai ls LastModified Time None Recorded Concern Status LastModified by Organization Details LastModified Time None Recorded Advance Directives Directive None Recorded Payers Insurance Date Sequence Insurance Name Policy Number Policy Michelle Covered Member ID Michelle Member ID Guarantor Name 04/28/2016 1 MEDICARE-ND (MEDICARE) Klarissa Nobleer [id number] Klarissa Catalan 04/28/2016 2 [employer] (MEDICARE SUPPLEMENT) Klarissa Hossein [id number] Klraissa Catalan Notes Date Note Type Note Provider Name and Address Organization Details Recorded Time 04/28/2016 text/html Pt here with with c/o chest pain, Nausea, back pain and left shoulder pain since 2AM. Pt not describing chest pain as pain but pressure. Pt did take her BP med but cont. with symptoms. Pt and are here on vacation and with no PCP. BETTIE Carter [address] [facility] [address], [place], [address], [facility] - [facility], [facility] 04/28/2016 10:10:16 OBGyn Episode No OBEpisode recorded.
--- OUTSIDE RECORDS SUMMARY | 2025-02-12 02:20 | XMS_ITS | Clinical Summary ---
Author Organization [facility] Address [address] [place] [address] Care Team Providers Care Drosophere Operator Name Role Phone Sheila Saul Maguire DO Primary Care Provider Ajith Krueger MD Unavailable [phone] Allergies Active Allergy Reactions Criticality Noted Date [...] 10/29/2023 Assessment & Plan (05/15/2024 4:46 PM OCC THER): Sinus node dysfunction, status post pacemaker. 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 The patient has a RPI6ED9-OSRg score of 4. I have therefore recommended [...] today Assessment & Plan (05/03/2023 8:44 AM OCC THER): The patient is six-month status post ablation for atrial fibrillation, doing well. Maintaining sinus rhythm with low-dose flecainide. At this point, we will discontinue flecainide. The patient has a RFJ7KX1-BXKc score of 4. I have therefore recommended [...] the current dose). The patient has a CJV9FY3-ZDEa score of 3. I have therefore recommended [...] monitor for toxicity. The patient has a ZNA5VC4-DSFi score of 3. I have therefore recommended [...] with atrial fibrillation: a report of the [place] [employer]/[place] [employer] Association Task Force on Practice Guidelines [...] dose of flecainide) The patient has a QIQ4NW5-LOFa score of 4. I have therefore recommended continued anticoagulation for thromboprophylaxis. The patient will follow-up with me in 3 months for an office visit and twelve- lead ECG. Encounters Date Type Department Care Team Description 01/23/2025 Telephone [facility] Cardiology [address] [place] [address] Reji Mei MD [facility] from Last 3 Months Immunizations Immunization Administration [...] Comments Blood Pressure 122/76 05/15/2024 1:40 PM OCC THER Pulse 82 05/15/2024 1:40 PM OCC THER Temperature 36.3 C (97.4 F) 11/08/2022 2:08 PM CDT Respiratory Rate 19 10/17/2023 3:45 PM CDT Oxygen Saturation 97% 10/29/2023 1:21 PM CDT Inhaled Oxygen Concentration - - Weight 93.4 kg (206 lb) 05/15/2024 1:40 PM OCC THER Height 160 cm (5' 3) 05/15/2024 1:40 PM OCC THER Body Mass Index 36.49 05/15/2024 1:40 PM OCC THER Plan of Treatment Health Maintenance Due Date [...] history exists Medical Devices Implanted Type Area Sheep Rancher Device Identifier Shelf Expiration Date Model / Serial / Lot [employer] Vascade Mvp 6-12fr Venous Closure [id number] - [id number] - [id number] Implanted:Qty : 1 on 11/08/2022 by Ajith Krueger MD at [facility] [employer] 07/27/2024 800-612C- 10U / [id number] 24B / [id number] 24B [employer] Vascade Mvp 6-12fr Venous Closure [id number] - [id number] - [id number] Implanted:Qty : 1 on 11/08/2022 by Ajith Krueger MD at [facility] [employer] 08/09/2024 800-612C- 10U / [id number] 04B / [id number] [id number] [employer] Vascade Mvp 6-12fr Venous Closure [id number]-27a - [id number] - [id number] Implanted:Qty : 1 on 11/08/2022 by Ajith Krueger MD at [facility] [employer] 08/09/2024 800-612C- 10U / [id number] 04B / [id number] [id number] [employer] Vascade Mvp 6-12fr Venous Closure [id number]-[id number] - [id number] - [id number] Implanted:Qty : 1 on 11/08/2022 by Ajith Krueger MD at [facility] [employer] 08/09/2024 800-612C- 10U / [id number] 04B / [id number] 04B [employer] Active Fixation Steroid Eluting Latex Free Sterile Right Atrium Ventricle Ultipace 52cm Qom9931/52 - [id number] - [id number] Implanted:Qty : 1 on 10/17/2023 by Ajith Krueger MD at [facility] Lead [employer] [id number] 06/13/2026 LPA12 13/09 2 / [id number] / [employer] Active Fixation Steroid Eluting Latex Free Sterile Right Atrium Ventricle Ultipace 46cm Pmd2732/46 - [id number] - [id number] Implanted:Qty : 1 on 10/17/2023 by Ajith Krueger MD at [facility] Lead [employer] [id number] 04/15/2026 LPA12 6 / [id number] / [employer] Assurity Mri 28f84ut 2 Chamber Is-1 Connector Thk6mm Pacemaker Ze9957 - [id number] - [id number] Implanted:Qty : 1 on 10/17/2023 by Ajith Krueger MD at [facility] Pacemaker [employer] [id number] 02/13/2025 UT4429 / [id number] / [employer] Device Clsr Perclose Prostyle Sut-Mediatd Closure-Repai r Sys 18874-22 - [id number] - [id number] Implanted:Qty : 1 on 03/27/2022 by Chance Cuellar MD at [facility] [employer] 11/14/2023 94873-31 / [id number] / [id number] [employer] Device Clsr Perclose Prostyle Sut-Mediatd Closure-Repai r Sys 65897-45 - [id number] - [id number] Implanted:Qty : 1 on 03/27/2022 by Chance Cuellar MD at [facility] [employer] 01/14/2024 15046-35 / [id number] / [id number] [employer] Device Clsr Perclose Prostyle Sut-Mediatd Closure-Repai r Sys 74496-15 - [id number] - [id number] Implanted:Qty : 1 on 03/27/2022 by Chance Cuellar MD at [facility] [employer] 12/15/2023 17942-10 / [id number] / [id number] [place] [address] [facility] Address: [address] [address] [place] [phone] [facility]IC[facility] Address: [address] [address] [place] [phone] [place] [address] Care Teams Drosophere Operator Relationship Specialty Start Date End Date Saul Sosa DO [address] [place] [address] PCP - General Family Medicine 05/02/22 Ajith Krueger MD [address] [address] Consulting Physician Cardiology 05/02/22
[2025-02-12 10:49] LABS: Hematocrit 49.6 % (37.0-47.0); Hemoglobin 16.1 g/dL (12.0-15.0); Immature Granulocyte Percent A 0.3 % (0-0.5); Lymphocytes Absolute Auto 1.91 K/mm3 (0.9-3.2); Mean Corpuscular HGB Conc 32.5 g/dl (32-36); Mean Corpuscular Hemoglobin 32.1 pg (26-34); Mean Corpuscular Volume 99.0 fl (80-100); Nucleated Red Blood Cells Absolute Auto 0.000 K/mm3 (0.0-0.012); Nucleated Red Blood Cells Perc 0.0 % (0.0-0.2); Platelet Count Result 197 k/mm3 (150-375); Red Blood Count 5.01 M/mm3 (4.2-5.4); White Blood Count 7.2 K/mm3 (4.5-10.0)
[2025-02-12 11:11] LABS: Anion Gap 8 mmol/L (4-12); Blood Urea Nitrogen 14 mg/dL (7-17); Calcium 9.7 mg/dL (8.4-10.2); Carbon Dioxide 28 mmol/L (22-30); Chloride 101 mmol/L (98-107); Estimated CRCL calculation 63 ml/min; Estimated Glomerular Filt Rate > 60; Glucose 95 mg/dL (65-110); Potassium 3.4 mmol/L (3.4-5.0); Sodium 137 mmol/L (137-145)
--- NOTE | 2025-02-12 11:47 | WPDHPUPDATE1 ---
History and Physical Update Update Date/Time: 02/12/25 11:47 History and Physical has been reviewed, including an updated exam of the patient. There are NO changes in the patient's condition. Risks, benefits, and alternatives have been discussed and questions answered. Patient agrees to proceed with procedure.
--- NOTE | 2025-02-12 11:48 | WPDMODSED ---
Moderate Sedation Note-Pt Data Patient Data Allergies Allergy/AdvReac Type Severity Reaction Status Date / Time escitalopram (Lexapro) Allergy Intermediate Diarrhea Verified 02/12/25 10:34 Penicillins Allergy Intermediate Rash Verified 02/12/25 10:34 atorvastatin AdvReac Intermediate Muscle Pain Verified 02/12/25 10:34 Home Medications ?Medication ?Instructions ?Recorded ?Confirmed ?Type acetaminophen 650 mg 650 mg PO Q12H 08/06/19 02/11/25 History tablet,extended release (Tylenol Arthritis Pain) calcium carbonate 600 mg PO DAILY 01/05/21 02/11/25 History buivxlrkshsx-zqvuftab-izqyab 1 tablet PO DAILY 05/30/23 02/11/25 History tablet (Multivitamin 50 Plus tablet) pravastatin 20 mg tablet See Rx Instructions .Route 04/04/24 02/11/25 Rx .COMPLEX #90 tabs apixaban 5 mg tablet (Eliquis) See Rx Instructions .Route 07/07/24 02/11/25 Rx .COMPLEX #180 tabs hydrocodone 5 mg-acetaminophen 325 1 tablet PO Q8H PRN pain #20 tabs 11/28/24 02/11/25 Rx mg tablet metoprolol succinate 50 mg capsule 50 mg PO BID 12/19/24 02/12/25 History sprinkle, ext. release 24 hr furosemide 20 mg tablet (Lasix) 20 mg PO QAM #30 tabs 01/15/25 02/11/25 Rx spironolactone 25 mg tablet 25 mg PO DAILY #30 tabs 01/15/25 02/11/25 Rx empagliflozin 10 mg tablet 10 mg PO DAILY #30 tabs 01/21/25 02/11/25 Rx (Jardiance) sacubitril 24 mg-valsartan 26 mg 1 tablet PO BID #60 tabs 01/21/25 02/12/25 Rx tablet (Entresto) lorazepam 1 mg tablet 1 mg PO DAILY PRN anxiety #20 tabs 01/22/25 02/12/25 Rx Sedation/Anesthesia: No previous sedation/anesthesia problems (including family history). 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 KELLI (generalized anxiety disorder) Overweight Hypersomnia Dyslipidemia Hypertension Surgical History Surgical History History of eye surgery H/O cardiac radiofrequency ablation History of bilateral knee replacement History of cholecystectomy History of hysterectomy Family History Family History Father Acute myocardial infarction Family history of arthritis Sibling Family history of arthritis Acute myocardial infarction Lung cancer Social History Social History Smoking status: Never smoker Alcohol intake: never Substance use: never Substance use type: does not use Do You Feel Safe in your Home?: Yes Lack of Transportation: No Lack of Food: Never True Current Housing: I Have Housing Concerned About Future Housing: No Difficulty Paying Gas/Electric Bills: No Difficulty Paying for Meds: No Currently Unemployed: No Education: Trade/Vocational Certificate Difficulty w/ Childcare or Family Care: No Living arrangements: with family Additional living arrangements comments: LIVES AT HOME W/ , ED. Occupation/Education: retired Additional occupation/education comments: [employer] Gender identity (if verbalized by the patient): Female Sexual Orientation (if Verbalized by the Patient): Straight or Heterosexual Spiritual care concerns: No Mod Sed Physical Exam Physical Exam Pre Procedural Exam: Normal: Lungs and Heart Rhythm and Variation: Heart Rate (tachycardic) Hours since solid foods: 12 Hours since liquid intake: 12 Mallampati Classification: class II Internal Medicine - PN: Obj Da Vital Signs Vital Signs: Vital Signs - 24 hr 02/12/25 10:35 Temperature 36.9 C Pulse Rate 115 H Respiratory Rate 16 Blood Pressure 128/95 H Oxygen Delivery Room Air Labs 02/12/25 10:40 02/12/25 10:40 Labs: Laboratory Results - last 24 hr 02/12/25 10:40 WBC 7.2 RBC 5.01 Hgb 16.1 H Hct 49.6 H MCV 99.0 MCH 32.1 MCHC 32.5 RDW 14.4 Plt Count 197 MPV 10.4 Immature Gran % (Auto) 0.3 Neut % (Auto) 62.4 Lymph % (Auto) 26.7 Cottle % (Auto) 8.1 Eos % (Auto) 1.5 Baso % (Auto) 1.0 Lymph # (Auto) 1.91 Cottle # (Auto) 0.6 Eos # (Auto) 0.1 Baso # (Auto) 0.1 Abs Immat Gran (auto) 0.02 Absolute Neuts (auto) 4.5 Absolute Nucleated RBC 0.000 Nucleated RBC % 0.0 Sodium 137 Potassium 3.4 Chloride 101 Carbon Dioxide 28 Anion Gap 8 BUN 14 Creatinine 0.67 L Estim Creat Clear Calc 63 Estimated GFR > 60 Glucose 95 Calcium 9.7 ASA Classification/Sedation ASA Classification/Sedation ASA Class: III Emergent: No Risks: Risks, benefits and alternatives explained and patient/family accepted plan for sedation. Patient re-evaluated immediately prior to sedation.
--- NOTE | 2025-02-12 12:22 | WPDCARDPROC ---
Cardiac Cath Procedure Note Date of procedure:: 02/12/25 Performing physician:: CATHETERIZATION LABORATORY REPORT Procedure Date: 02/12/2025 Referring Physician: Dr. Hardin Anesthesia: Versed and Fentanyl were ordered and given in my presence at 1210, procedure ended at 1218. Supervision of nurse, Becca Remy monitored moderate sedation with 1mg Versed and 50mcg Fentanyl was provided for 8 minutes. Pre-op Diagnosis: Cardiomyopathy Post-op Diagnosis: Cardiomyopathy Procedure(s): Left heart catheterization with coronary angiography Access Site: Right radial artery Brief History and Clinical Indications: All risks, benefits and alternatives to left heart catheterization with or without percutaneous coronary intervention was discussed at length with the patient. Risk of complications including but not limited to bleeding, infection, arrhythmia, stroke, worsening kidney function, blood loss, groin hematoma, limb loss, emergency coronary artery bypass grafting, and even were discussed with the patient and all questions were answered. The patient understood and wished to proceed. Time out called, patient name, date of , medical record number, allergies, procedure performed, identify Putty Mixer And Applier, patient and staff member concurred with accurate data, procedure carried on. Findings: LEFT HEART CATHETERIZATION FINDINGS: 1. Left main: The left main coronary artery is widely patent without any significant obstructive disease. 2. Left anterior descending: The LAD and the diagonal branches have mild luminal irregularities without any significant obstructive angiographic disease. 3. Left circumflex: The left circumflex artery and the main marginal branches have mild luminal irregularities without any significant obstructive angiographic disease. 4. Right coronary artery: The RCA is a large dominant vessel with no angiographic stenosis. 5. Left ventricle: A. End-diastolic pressure 33 mmHg. B. LV gram deferred. C. No significant gradient across aortic valve on catheter pullback. 6. Opening AO pressure 144/102 and closing AO pressure 127/105 Description of Procedure: Informed consent signed and placed in the chart. Patient transferred to metallurgical laboratory assistant room. Prepped and draped in usual sterile fashion. 2% lidocaine injected subcutaneously in right wrist area. 22-gauge venipuncture catheter used to access the right radial artery with the Seldinger technique. 6-FR slender sheath placed in right radial artery. Nitroglycerin 200mcg, Verapamil 2.5mg, and Heparin 5000U was given intraarterial through the sheath. J wire advanced under fluoroscopy. 5F Ultra diagnostic catheter crossed into the left ventricle to measure LVEDP and aortic valve gradients. After pull back the diagnostic catheter engaged Left Main Coronary Artery and Right Coronary Artery. Multiple orthogonal angiogram obtained and reviewed. Hemostasis was achieved by application of TR band. Assessment: Nonischemic CMP Post Operative Condition: Stable No significant blood loss Disposition: Home Plan: Consider increasing oral diuresis. Consider RV pacing induced CMP. Consider upgrade to BiV ICD The above findings were discussed with the referring physician. Continue aggressive medical therapy and risk factor modification. Reji Mei Interventional Cardiology
[2025-02-12] MEDS: SODIUM CHLORIDE 0.9% IV 1,000 ML 100 ML IV CONT (14:06)
== END 2025-02-12 16:25 | disposition home or self-care (01) ==
PROVIDERS: PCP Family Medicine; Visit Provider Internal Medicine
PROC: 4A023N7 Measurement of Cardiac Sampling and Pressure, Left Heart, Percutaneous Approach (ICD-10-PCS; CPT 93452; principal; 2025-02-12 11:30)
DX: I42.8 Other cardiomyopathies (principal); I10 Essential (primary) hypertension; E78.5 Hyperlipidemia, unspecified
CPT/HCPCS: 36415; 80048; 85025; 93458; C1769; C1887; C1894; J1644; J2003; J2250; J2305; J3010; J7040

== ENCOUNTER 2025-03-11 07:29 | Outpatient (CLI) | payer MEDICARE, SELFPAY ==
--- OUTSIDE RECORDS SUMMARY | 2020-12-09 05:30 | XMS_ITS | Continuity of Care Document ---
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 Name Role Phone Roberto Bower MD Unavailable Unavailable Procedures Procedure Date INJ PARAVERT F JNT C/T 1 LEV INJ PARAVERT F JNT C/T 2 LEV SURGICAL TRAY INJ, DEXAMETHASONE SODUIM PHOSPHATE (DEC ADRON) 1MG CERVICAL SPINE CT W/O CONTRAST 21 INJECT, ANESTHETIC AND/OR ST EROID, TRANSFORAMINAL EPIDURAL; C/T, SINGLE LEVEL SURGICAL TRAY LOW OSMOLAR CONTRAST (200 TO 299 MG IODI NE) INJ, DEXAMETHASONE SODUIM PHOSPHATE (DEC ADRON) 1MG MRI OF NECK, SPINE W/O CONTRAST 021 Advance Directives Directive Yes / No Effective Date File Name No Information Encounters Encounter Description Practice Location Reason(s) For Visit Diagnoses Date Provider Providers Copied on Encounter [facility], [address], [place], [place], [id number], [place] tel:[phone] [facility] No Information Sathish Mejia. [address], [place], [place], [address], [place]. tel:[phone] Referring Provider: Trent Wilson, [address], [place], [address]. tel:[phone] [facility], [address], [place], [place], [address], tel:[phone] [facility] No Information Sathish Mejia. [address], [place], [place], [address], . tel:[phone] Referring Provider: Trent Wilson, [address], [place], [address]. tel:[phone] [facility], [address], [place], [place], [address], tel:[phone] [facility] No Information Adrianne Don. [address], [place], [place], [address], . tel:[phone] Referring Provider: [address], [place], [address]. tel:[phone] [facility], [address], [place], [place], [address], tel:[phone] [facility] No Information Liliya Mejia. [address], [place], [place], [address], . tel:[phone] Referring Provider: [address], [place], [address]. tel:[phone] Family History Family Member Type Diagnosis Age At Onset No Information Payers Payer name Insurance type Covered alliance party ID Authoriza tilanny(s) MEDICARE MB [id number] [facility] INDIVIDUAL ASSURANCE CO CI [id number] Social History Type Description Quantity Date Captured Comments Sex Female Smoking Status No Information Chief Complaint And Reason For Visit No Information Reason For Referral Reason For Referral No Information History Of Present Illness Encounter Date Complaint History Of Prese nt Illness No Information Functional Status Date Functional Assessmen t No Information Instructions Date Instruction Additional Infor mation No Information Assessments Type Assessment Date No Information Patient Care Teams Name Effective Dates (start - stop) Status Members No Information
--- OUTSIDE RECORDS SUMMARY | 2025-03-11 07:36 | XMS_ITS | Data Portability ---
Author Organization [facility] [employer], [facility] Address [address] [place] [id number] Care Team Providers Care Program Technician Name Role Phone ZEKE HAYNES Primary Care Provider ZEKE HAYNES Referring Provider [phone] Assessment No assessment recorded. Plan of Treatment Reminders Order Date Submit Date Provider Last Modified By Organization Details Last Modified Time Details Appointments None recorded. Lab None recorded. Referral None recorded. Procedures None recorded. Surgeries None recorded. Imaging electrocard iogram 2016 017 [email or web address] 75 In-Office Order, Internal Use Only DO Not Attach Compendium DO Not Attach Compendium, Do Not Delete/merge, [id number] 12:40:43 electrocard iogram 2016 017 [email or web address] 75 In-Office Order, Internal Use Only DO Not Attach Compendium DO Not Attach Compendium, Do Not Delete/merge, [id number] 12:40:43 Medication Orders None recorded. Patient [...] Joint replacement, Knee completed Luis Felipe Green [facility] 04/28/2016 10:32:14 04/16/19 07 Joint replacement, Knee completed Luis Felipe Green [facility] 04/28/2016 10:32:11 04/16/19 00 [facility] 04/28/2016 10:32:01 Imaging Results None recorded. Procedure Notes None recorded. Medical Equipment None Reported. Allergies Allergen ID Allergen Name Allergen Category Reaction Reaction Severity Criticality Documentation Date Start Date Code Code System Note Provider Name and Address Organization Details Recorded Time 557539 Product containin g penicilli n (product) medicatio n rash Not available Not available 04/28/2016 61930 8001 SNOMED [facility] 7 08:23:14 Medications Name Sig Start [...] (BMI) Body temperature Heart rate Oxygen saturation Systolic And Diastolic Provider Name and Address Organization Details Last Updated DateTime 7 04252.4 g 160.02 cm 37.2 kg/m2 97.9 [degF] 78 /min 97 % 160/100 mm[Hg] [facility] 7 08:31:45 Social History Question Answer Notes LastModified by Organizat ion Details LastModified Time Tobacco Smoking Status Never [facility]oker [facility]/28/2016 08:24:46 How Much Tobacco Do [...] virus, quadrivalent, preservative 6 completed Luis Felipe frederick [facility] 04/28/2016 08:24:12 pneumococcal polysaccharide PPV23 6 completed Luis Felipe frederick [facility] 04/28/2016 08:24:24 Past Encounters Encounter ID Performer Location Encounter Start Date Encounter Closed Date Diagnosis/Indication Diagnosis SNOMED-CT Code Diagnosis ICD10 Code Diagnosis IMO Codes Diagnosis Note [id number] BETTIE Carter [facility] [address] [place] [address] 04/28/2016 07:54:30 04/28/2016 12:40:43 Chest pain 77291230 R07.9 Pt with abnormal EKG and HR. Pt went to [facility] ER via 911. Pt will f/u with a PCP once released. Nausea 710875304 R11.0 Pain radia ting to left arm 450548024 M79.602 Health Concerns Section Related Observation LastModified by Organization Detai ls LastModified Time None Recorded Concern Status LastModified by Organization Details LastModified Time None Recorded Advance Directives Directive None Recorded Payers Insurance Date Sequence Insurance Name Policy Number Policy Michelle Covered Member ID Michelle Member ID Guarantor Name 04/28/2016 1 [place] Klarissa Catalan [id number] Klarissa Catalan 04/28/2016 2 [employer] (MEDICARE SUPPLEMENT) Klarissa Catalan [id number] Klarissa Catalan Notes Date Note Type Note [...] vacation and with no PCP. BETTIE Carter [address] [facility] [address], [place], [address], [facility], [facility] 04/28/2016 10:10:16 OBGyn Episode No OBEpisode recorded.
--- OUTSIDE RECORDS SUMMARY | 2025-03-11 07:36 | XMS_ITS | Clinical Summary ---
Author Organization [facility] Address [address] [place] [address] Care Team Providers Care Cream Hauler Name Role Phone Saul Sosa DO Primary Care Provider [phone] Allergies Active Allergy Reactions Criticality Noted Date [...] this topic Medical Devices Implanted Type Area Pitch Worker Device Identifier Shelf Expiration Date Model / Serial / Lot Ra Lead Implant-10/17/19 24 Implanted:Qty: 1 on 10/17/2023 by Ajith Krueger MD Lead Implant Right: [facility] [employer] [facility] [employer] [id number] / [id number] / [id number] Lead Implant-10/17/19 24 Implanted:Qty: 1 on 10/17/2023 by Ajith Krueger MD Lead Implant Right: Ventricle [facility] [employer] [facility] [employer] [id number] / [id number] / Iol Tec[employer] Simplicity Dcb00 - [id number] Implanted:Qty: 1 on 01/14/2024 by Iggy Sanabria MD at [facility] Lens Right: Eye [employer] 05/07/2026 DCB00 / / [id number] Pacemaker-2023 Implanted:Qty: 1 on 10/17/2023 by Ajith Krueger MD Pacemaker Chest [facility] [employer] [facility] [employer] [id number] / [id number] / Description:MRI Conditional under following conditions: Static magnetic field of 1.5 T or 3 T, Max spatial gradient field of 3000 Gauss/cm or less, Max slew rate 200 T/m/s or less, Max whole body TRACE of 2 W/kg or less, Head TRACE 3.2 W/kg or less, Supine or Prone position Insurance MEDICARE Care Teams Cream Hauler Relationship Specialty Start Date End Date Saul Sosa DO [address] [place] [address] PCP - General FAMILY PRACTICE 01/11/24
--- OUTSIDE RECORDS SUMMARY | 2025-03-11 07:36 | XMS_ITS | Clinical Summary ---
Author Organization [facility] Address [address] [place] [address] Care Team Providers Care Solar Electric/Photovoltaic Installer Name Role Phone Sheila Saul Maguire DO Primary Care Provider Ajith Krueger MD Unavailable [phone] Allergies Active Allergy Reactions Criticality Noted Date [...] 10/29/2023 Assessment & Plan (05/15/2024 4:46 PM SHIPYARD PAINTER): Sinus node dysfunction, status post pacemaker. 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 The patient has a RAX2EQ7-SQNu score of 4. I have therefore recommended [...] today Assessment & Plan (05/03/2023 8:44 AM SHIPYARD PAINTER): The patient is six-month status post ablation for atrial fibrillation, doing well. Maintaining sinus rhythm with low-dose flecainide. At this point, we will discontinue flecainide. The patient has a JMX7DQ2-BAUr score of 4. I have therefore recommended [...] the current dose). The patient has a JPE7TN1-VWQp score of 3. I have therefore recommended [...] monitor for toxicity. The patient has a UKR4AS2-BDHc score of 3. I have therefore recommended [...] with atrial fibrillation: a report of the [place] [employer]/[place] [employer] Association Task Force on Practice Guidelines [...] dose of flecainide) The patient has a VZK5EB8-ATEr score of 4. I have therefore recommended continued anticoagulation for thromboprophylaxis. The patient will follow-up with me in 3 months for an office visit and twelve- lead ECG. Encounters Date Type Department Care Team Description 02/13/2025 Orders Only [facility] Cardiology [address] [place] [address] Reji Mei MD 01/23/2025 Telephone [facility] [address] [place] [address] Reji Mei MD [facility] from Last 3 Months Immunizations Immunization Administration [...] you are drinking? Patient does not drink Q3: How often do you have si [...] Comments Blood Pressure 122/76 05/15/2024 1:40 PM SHIPYARD PAINTER Pulse 82 05/15/2024 1:40 PM SHIPYARD PAINTER Temperature 36.3 C (97.4 F) 11/08/2022 2:08 PM CDT Respiratory Rate 19 10/17/2023 3:45 PM CDT Oxygen Saturation 97% 10/29/2023 1:21 PM CDT Inhaled Oxygen Concentration - - Weight 93.4 kg (206 lb) 05/15/2024 1:40 PM SHIPYARD PAINTER Height 160 cm (5' 3) 05/15/2024 1:40 PM SHIPYARD PAINTER Body Mass Index 36.49 05/15/2024 1:40 PM SHIPYARD PAINTER Plan of Treatment Health Maintenance Due Date [...] history exists Medical Devices Implanted Type Area Laborer Demolition Device Identifier Shelf Expiration Date Model / Serial / Lot [employer] Inc Vascade Mvp 6-12fr Venous Closure [id number] - [id number] - [id number] Implanted:Qty : 1 on 11/08/2022 by Ajith Krueger MD at [facility] Coll[employer] 07/27/2024 800-612C- 10U / [id number] 24B / [id number] [employer] Vascade Mvp 6-12fr Venous Closure [id number] - [id number] - [id number] Implanted:Qty : 1 on 11/08/2022 by Ajith Krueger MD at [facility] [employer] 08/09/2024 800-612C- 10U / [id number] 04B / [id number] [id number] [employer] Vascade Mvp 6-12fr Venous Closure [id number] - [id number] - [id number] Implanted:Qty : 1 on 11/08/2022 by Ajith Krueger MD at [facility] [employer] 08/09/2024 800-612C- 10U / [id number] 04B / [id number] [id number] [employer] Vascade Mvp 6-12fr Venous Closure [id number] - [id number] - [id number] Implanted:Qty : 1 on 11/08/2022 by Ajith Krueger MD at [facility] [employer] 08/09/2024 800-612C- 10U / [id number] 04B / [id number] 04B [employer] Active Fixation Steroid Eluting Latex Free Sterile Right Atrium Ventricle Ultipace 52cm Kpy6965/52 - [id number] - [id number] Implanted:Qty : 1 on 10/17/2023 by Ajith Krueger MD at [facility] Lead [employer] [id number] 06/13/2026 LPA12 31/5 2 / [id number] / [employer] Active Fixation Steroid Eluting Latex Free Sterile Right Atrium Ventricle Ultipace 46cm Ngt4189/46 - [id number] - [id number] Implanted:Qty : 1 on 10/17/2023 by Ajith Krueger MD at [facility] Lead [employer] [id number] 04/15/2026 LPA12 6 / [id number] / [employer] Assurity Mri [id number] 2 Chamber Is-1 Connector Thk6mm Pacemaker Bh7598 - [id number] - [id number] Implanted:Qty : 1 on 10/17/2023 by Ajith Krueger MD at [facility] Pacemaker [employer] [id number] 02/13/2025 ZK2342 / [id number] / [employer] Device Clsr Perclose Prostyle Sut-Mediatd Closure-Repai r Sys 68766-50 - [id number] - [id number] Implanted:Qty : 1 on 03/27/2022 by Chance Cuellar MD at [facility] [employer] 11/14/2023 30048-98 / [id number] / [id number] [employer] Device Clsr Perclose Prostyle Sut-Mediatd Closure-Repai r Sys 39818-77 - [id number] - [id number] Implanted:Qty : 1 on 03/27/2022 by Chance Cuellar MD at [facility] [employer] 01/14/2024 16605-10 / [id number] / [id number] [employer] Device Clsr Perclose Prostyle Sut-Mediatd Closure-Repai r Sys 90412-57 - [id number] - [id number] Implanted:Qty : 1 on 03/27/2022 by Chance Cuellar MD at [facility] [employer] 12/15/2023 39381-17 / [id number] / [id number] Procedures Procedure Name Priority Date/Time Associated Diagnosis Comments CARDIOLOGY DOCUMENT SCAN Routine 02/12/2025 3:27 PM CDT from Last 3 Months Results * Cardiology Document Scan (02/12/2025 3:27 PM CDT) Anatomical Region Laterality Modality Other Reji Mei MD CV CARDIAC SERVICES PROCEDURES F inal Result from Last 3 Months Insurance [facility] MEDICARE ADVANTAGE [facility] MEDIC[facility] Address: [place] [address] [employer] MEDICARE ADVANTAGE [facility] MEDICARE Address: [place] [address] Care Teams Solar Electric/Photovoltaic Installer Relationship Specialty Start Date End Date Saul Sosa DO [address] [place] [address] PCP - General Family Medicine 05/02/22 Ajith Krueger MD [address] [place] [address] Consulting Physician Cardiology 05/02/22
--- NOTE | 2025-03-11 07:42 | ECHO_ITS ---
Patient Info Name: Klarissa Catalan Age: 79 years : 1945 Gender: Female Ht: 62 in Wt: 189 lbs BSA: 1.98 m2 HR: 90 bpm BP: 97 / 81 mmHg Heart Rhythm: Sinus Rhythm Technical Quality: Fair Exam Date: 03/11/2025 8:06 AM Patient Status: O Admit Date: 03/11/2025 Exam Type: CA echo dop color flow w con Complete two-dimensional, color flow and Doppler transthoracic echocardiogram is performed with contrast to opacify the left ventricle and to improve the deliniation of the left ventricle endocardial borders. Electro Mechanical Designer: Francisca Benavides Attending Provider: dEd Hardin DO Contrast/Agitated Saline Contrast/Ag. Saline: Definity Amount: 2.00 ml Administered By: Francisca Benavides Existing IV Access: No New IV Access: Left Site Condition: IV removed Summary 1. Definity contrast administered improved wall motion interpretation. 2. The left ventricular diastolic function is normal. 3. Left ventricular systolic function is mildly reduced, estimated at 45-50. 4. E/e' 9 is minimally elevated. 5. Linear artifact in right ventricle suggestive of catheter(s), pacemaker lead(s), or ICD lead(s). 6. Left atrial chamber dimension is mildly enlarged. 7. Linear artifact in the right atrium suggestive of catheter(s), pacemaker lead(s), or ICD lead(s). 8. There is mild tricuspid valve regurgitation. 9. No pulmonary hypertension, estimated pulmonary arterial systolic pressure is 25 mmHg. 10. There is trace pulmonic regurgitation. Left Ventricle Definity contrast administered improved wall motion interpretation. Left ventricular systolic function is mildly reduced, estimated at 45-50. The left ventricular diastolic function is normal. E/e' 9 is minimally elevated. Right Ventricle Right ventricular chamber dimension is normal. Right ventricular systolic function is normal and with normal TAPSE 1.8 cm. Linear artifact in right ventricle suggestive of catheter(s), pacemaker lead(s), or ICD lead(s). Left Atria Left atrial chamber dimension is mildly enlarged. Right Atria Right atrial chamber dimension is normal. Linear artifact in the right atrium suggestive of catheter(s), pacemaker lead(s), or ICD lead(s). Aortic Valve The aortic valve is trileaflet. There is no aortic valve stenosis. There is no aortic valve regurgitation. Pulmonic Valve There is trace pulmonic regurgitation. Mitral Valve There is no mitral valve stenosis. There is no mitral valve regurgitation. Tricuspid Valve There is mild tricuspid valve regurgitation. No pulmonary hypertension, estimated pulmonary arterial systolic pressure is 25 mmHg. Pericardium/Pleural There is no pericardial effusion. Inferior Vena Cava Normal inferior vena cava with >50% collapse upon inspiration consistent with normal right atrial pressure, 5 mmHg. Aorta The aortic root size at the sinus of Valsalva is normal. Left Ventricular Outflow Tract Name Value Normal LVOT 2D LVOT Diameter 2.0 cm LVOT Doppler LVOT Peak Velocity 56 cm/s LVOT Peak Gradient 1 mmHg LVOT Mean Gradient 1 mmHg LVOT VTI 9 cm LVOT VTI/AV VTI Ratio 0.5 LVOT Stroke Volume 28 ml LVOT CO 2.5 l/min LVOT CI 1.3 l/min/m2 Pulmonic Valve Name Value Normal RVOT Doppler RVOT Peak Velocity 64 cm/s RVOT Peak Gradient 2 mmHg PV Doppler PV Peak Velocity 79 cm/s PV Peak Gradient 2 mmHg Mitral Valve Name Value Normal MV Diastolic Function MV E Peak Velocity 86 cm/s MV A Peak Velocity 33 cm/s MV E/A 2.6 MV Decel Time (PW) 144 ms MV Annular TDI MV E/e' (Septal) 9.6 MV E/e' (Lateral) 8.6 MV E/e' (Average) 9.1 Tricuspid Valve Name Value Normal TV Regurgitation Doppler TR Peak Velocity 221 cm/s TR Peak Gradient 20 mmHg Estimated PAP/RSVP RA Pressure 5 mmHg <=5 PA Systolic Pressure 25 mmHg <36 RV Systolic Pressure 25 mmHg <36 TV Annular TDI TV Lateral Herlinda s' Velocity 8.8 cm/s >=9.5 Aorta Name Value Normal Ascending Aorta Ao Root Diameter (MM) 3.3 cm Ao Root Diam Index (MM) 1.7 cm/m2 Aortic Valve Name Value Normal AV Doppler AV Peak Velocity 101 cm/s AV Peak Gradient 4 mmHg AV Mean Gradient 3 mmHg AV VTI 18 cm AV Area (Cont Eq VTI) 1.6 cm2 >=3.0 AV Area (Cont Eq Adams) 1.7 cm2 AV DI (Adams) 0.56 AV Regurgitation 2D LVOT Area 3.1 cm2 Ventricles Name Value Normal LV Dimensions 2D/MM IVS Diastolic Thickness (2D) 0.8 cm 0.6-1.0 LVID Diastole (2D) 4.5 cm 3.8-5.2 LVIW Diastolic Thickness (2D) 0.8 cm 0.6-0.9 LVID Systole (2D) 3.1 cm 2.2-3.5 LVOT Diameter 2.0 cm LV Mass (2D Cubed) 121.59 g 67.00-162.00 LV Mass Index (2D Cubed) 62 g/m2 43-95 Relative Wall Thickness (2D) 0.37 <=0.42 LV Fractional Shortening/Ejection Fraction 2D/MM LV Fractional Shortening (2D) 32 % 27-45 LV EF (2D Teichholz) 61 % LV Diastolic Volume (4C MOD) 51 ml LV EF (4C MOD) 53 % LV Diastolic Volume (2C MOD) 38 ml LV EF (2C MOD) 48 % LV Diastolic Volume (BP MOD) 44 ml 46-106 LV Diastolic Volume Index (BP MOD) 22 ml/m2 29-61 LV Systolic Volume (BP MOD) 22 ml 14-42 LV Systolic Volume Index (BP MOD) 11 ml/m2 8-24 LV EF (BP MOD) 51 % 54-74 LV Diastolic Length (4C) 6.6 cm LV Systolic Length (4C) 5.6 cm LV Stroke Volume (4C MOD) 27 ml Atria Name Value Normal LA Dimensions LA Dimension (MM) 4.8 cm 2.7-3.8 LA Volume (4C A-L) 58 ml LA Volume (BP A-L) 59 ml RA Dimensions RA Area (4C) 16.4 cm2 <=18.0 Report Signatures
[2025-03-11] MEDS: PERFLUTREN LIPID MICROSPHERES 1.5 ML VIAL DILUTED TO 10 ML TOTAL VOLUME IV PUSH (08:50)
--- NOTE | 2025-03-11 10:49 | IVDEFINITY ---
Prior to administration of IV Definity the patient was educated on the risks and benefits of the imaging enhancing agent including potential adverse side effects. The patient verbalized understanding. Allergies were verified. No exclusion criteria were identified and at least one of the following inclusion criteria were met: 1) physician request, 2) patient technically difficult to image (per the [place] [employer] of Echocardiography guidelines of two or more segments not discernable within the apical view), or 3) questionable left ventricular function. ?
== END 2025-03-11 07:30 | disposition home or self-care (01) ==
LOC: ANHCARD 07:33
PROVIDERS: PCP Family Medicine; Visit Provider Internal Medicine Cardiovascular Disease
DX: I51.9 Heart disease, unspecified (principal); I36.1 Nonrheumatic tricuspid (valve) insufficiency
CPT/HCPCS: C8929; Q9957